=== PATIENT | female | born 1935 | race Caucasian/White ===

== ENCOUNTER 2016-11-11 07:54 | Inpatient (IN) | payer MEDICARE, BC ==
[~2016-11-11 07:54] MED LIST: Bisacodyl 5 MG Tab PO PRN; Lactated Ringers 1,000 ML IV SCH; Lidocaine 1%/Sod Bicarbonate in NS 8.4% 1 ML Syringe IV PRN; Magnesium Hydroxide 400 MG/5 ML Susp 30 ML Cup PO PRN; Morphine 2 MG/ML Syringe IVPUSH PRN; Morphine PF 10 MG/10 ML SDV ONE; Ondansetron 4 MG/2 ML SDV IVPUSH PRN; Propofol 200 MG/20 ML SDV ONE; Sodium Chloride 0.9% 10 ML Syringe FLUSH PRN; fentaNYL 100 MCG/2 ML SDV ONE
[2016-11-11] MEDS ORDERED: ceFAZolin 1 GM Vial ONE (08:10)
--- NOTE | 2016-11-11 08:54 | PCM.CONS ---
H&P History of Present Illness - General Date of Service: 11/11/16 Admit Problem/Dx: Admission Diagnosis/Problem Admission Diagnosis/Problem Osteoarthritis of knee Source of Information: Patient, Family, Old records, Provider, RN notes reviewed History Limitations: Reports: Physical impairment - History of Present Illness Initial Comments - Free Text/Narative: This is an 81-year-old, white female, with past medical history of Hypertension , HLD, OA, Osteoporosis, and Chronic Knee Pain who underwent left total knee arthroplasty post operative day zero. Patient appears relatively well. Her pain is controlled. She denies any acute issues. Hospital Medicine was consulted for postoperative care. Left Knee Pain Score (Numeric/FACES): 0 - Related Data Allergies/Adverse Reactions: Allergies Allergy/AdvReac Type Severity Reaction Status Date / Time No Known Allergies Allergy Verified 11/08/16 12:13 Home Medications: Home Meds Calcium Carbonate [Calcium] 1,500 mg PO DAILY 11/08/16 [History] Cholecalciferol (Vitamin D3) [Vitamin D3] 1,000 unit PO DAILY 11/08/16 [History] Past Medical History HEENT History: Reports: Impaired vision, Other (see below) Other HEENT History: excessive cerumen, glasses, dentures Cardiovascular History: Reports: Heart murmur, High cholesterol Respiratory History: Reports: None Gastrointestinal History: Reports: Hiatal hernia, Other (see below) Other Gastrointestinal History: abdominal pain Genitourinary History: Reports: Other (see below) Other Genitourinary History: UTI 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 Musculoskeletal History: Reports: Other (see below) Other Musculoskeletal History: L knee pain, L knee OA, mild scoliosis Neurological History: Reports: Other (see below) Other Neuro History: dizziness Psychiatric History: Reports: None Endocrine/Metabolic History: Reports: None Hematologic History: Reports: None Immunologic History: Reports: None Oncologic (Cancer) History: Reports: None Dermatologic History: Reports: None - Past Surgical History GI Surgical History: Reports: Cholecystectomy, Colonoscopy Female Surgical History: Reports: Hysterectomy Musculoskeletal Surgical History: Reports: Hip replacement Social & Family History - Tobacco Use Smoking Status *Q: Never Smoker Second Hand Smoke Exposure: No - Alcohol Use Days Per Week of Alcohol Use: 0 - Recreational Drug Use Recreational Drug Use: No H&P Review of Systems - Review of Systems: Review Of Systems: See Below General: Denies: fever, chills, malaise, weakness, fatigue HEENT: Reports: no symptoms Pulmonary: Denies: Shortness of Breath Cardiovascular: Denies: chest pain, dyspnea on exertion, edema Gastrointestinal: Denies: Abdominal pain, Decreased appetite, Nausea, Vomiting Genitourinary: Reports: no symptoms Musculoskeletal: Reports: no symptoms Skin: Denies: cyanosis, erythema Psychiatric: Denies: depression, anxiety, agitation, hallucinations, suicidal ideation Neurological: Reports: Difficulty Walking, Gait Disturbance. Denies: Confusion , Weakness Hematologic/Lymphatic: Reports: no symptoms Immunologic: Reports: no symptoms Exam - Exam Exam: See Below - Vital Signs Weight: 83.007 kg - Exam Quality Assessment: supplemental oxygen General: alert, oriented, cooperative. No: mild distress HEENT: Conjunctiva clear, EACs clear, EOMI, Hearing intact, Mucosa moist & pink , Nares patent, Normal nasal septum, Posterior pharynx clear, Pupils equal, Pupils reactive Neck: supple, trachea midline, 2+ carotid pulse wo bruit, full range of motion Lungs: Clear to auscultation, Normal respiratory effort Cardiovascular: regular rate, regular rhythm Abdomen: normal bowel sounds, soft. No: organomegaly (Female) Exam: Other (indwelling frias catheter) Rectal (Female) Exam: Deferred Back Exam: normal inspection, decreased range of motion Extremities: normal inspection, normal pulses. No: clubbing, cyanosis, calf tenderness, edema Peripheral Pulses: 2+: dorsalis pedis (L), dorsalis pedis (R) Skin: warm, dry, intact Neuro Extensive - Mental Status: oriented x3, normal cognition, memory intact Neuro Extensive - Motor, Sensory, Reflexes: CN II-XII intact (limited but fairly intact), abnormal gait Psychiatric: alert, normal affect, normal mood Consult PN Assessment/Plan POD#: 0 Procedures: Procedures ASSAY OF PREALBUMIN (11/01/16) ASSAY THYROID STIM HORMONE (04/02/16) BLOOD CULTURE FOR BACTERIA (09/11/14) C-REACTIVE PROTEIN (01/29/16) CHEST X-RAY 2VW FRONTAL&LATL (11/01/16) COMP SCREEN MAMMOGRAM ADD-ON (04/17/16) COMPLETE CBC AUTOMATED (11/01/16) COMPLETE CBC W/AUTO DIFF WBC (01/29/16) COMPREHEN METABOLIC PANEL (11/01/16) DXA BONE DENSITY AXIAL (04/14/15) EMERGENCY DEPT VISIT (09/11/14) EXTRACRANIAL BILAT STUDY (04/17/16) HYDRATE IV INFUSION ADD-ON (09/11/14) LIPID PANEL (04/02/16) MICROBE SUSCEPTIBLE ILDA (01/29/16) OFFICE/OUTPATIENT VISIT EST (04/02/16) PROTHROMBIN TIME (11/01/16) REMOVE IMPACTED EAR WAX UNI (01/29/16) ROUTINE VENIPUNCTURE (11/01/16) THER/PROPH/DIAG INJ SC/IM (04/02/16) THER/PROPH/DIAG IV INF INIT (09/11/14) THROMBOPLASTIN TIME PARTIAL (11/01/16) TX/PRO/DX INJ NEW DRUG ADDON (09/11/14) URINALYSIS AUTO W/SCOPE (11/01/16) URINE BACTERIA CULTURE (01/29/16) URINE CULTURE/COLONY COUNT (01/29/16) VITAMIN D 25 HYDROXY (11/01/16) X-RAY EXAM OF KNEE 3 (10/02/16) Problem List Initiated/Reviewed/Updated: Yes Plan: Assessment: Acute: Post-Operative Care State - Stable - Continue to monitor for hemodynamic instability S/p Left Total Knee Arthroplasty - Stable - DVT and Pain Management as per primary team Hx/o Chronic B/L Knee Pain - Pain Management as per primary team Post Operative Bradycardia - HR in the 52-57 - Continue to monitor Chronic: HTN HLD OA Osteoporosis Plan: She is clinically stable Routine AM labs Continue home meds IS q2 awake Thank you for the opportunity to participate in the management of this patient. Requesting Provider: Dr. Levy Date Consult Requested: 11/11/16 Reason for Consult: Post-Operative Care Patient History Reviewed: Yes Admission H&P Reviewed: Yes Consult Result/Summary: Stable
--- NOTE | 2016-11-11 09:16 | PCM.PREANE ---
Preanesthetic Assessment - Anesthesia/Transfusion/Family Hx Anesthesia History: Prior Anesthesia Without Reaction Family History of Anesthesia Reaction: No Transfusion History: No Prior Transfusion(s) - Review of Systems General: No Symptoms Pulmonary: No Symptoms Cardiovascular: No Symptoms Gastrointestinal: No symptoms Neurological: No Symptoms Other: Reports: Easy Bruising - Physical Assessment NPO Status Date: 11/10/16 NPO Status Time: 19:30 O2 Sat by Pulse Oximetry: 96 Respiratory Rate: 16 Vital Signs: Last Vital Signs Temp 97.7 F 11/11/16 08:05 Pulse 68 11/11/16 08:05 Resp 16 11/11/16 08:05 BP 128/73 11/11/16 08:05 Pulse Ox 96 11/11/16 08:05 Height: 5 ft 2 in Weight: 83.007 kg ASA Class: 2 Mental Status: Alert & Oriented x3 Airway Class: Mallampati = 1 Dentition: Reports: Edentulous Thyro-Mental Finger Breadths: 3 Mouth Opening Finger Breadths: 3 ROM/Head Extension: Full Lungs: Clear to auscultation, Normal respiratory effort Cardiovascular: Regular Rate, Regular Rhythm, No Murmurs - Lab Values: Laboratory Last Values MRSA (PCR) Negative 10/25/16 14:59 - Imaging/EKG Impressions: 11/04/16 Echo 65-70% EF 11/01/16 EKG SR 68 - Allergies Allergies/Adverse Reactions: Allergies Allergy/AdvReac Type Severity Reaction Status Date / Time No Known Allergies Allergy Verified 11/08/16 12:13 - Blood Blood Available: No - Acknowledgements Anesthesia Type Planned: Spinal Pt an Appropriate Candidate for the Planned Anesthesia: Yes Alternatives and Risks of Anesthesia Discussed w Pt/Guardian: Yes Pt/Guardian Understands and Agrees with Anesthesia Plan: Yes PreAnesthesia Questionnaire HEENT History: Reports: Impaired vision, Other (see below) Other HEENT History: excessive cerumen, glasses, dentures Cardiovascular History: Reports: Heart murmur, High cholesterol Respiratory History: Reports: None Gastrointestinal History: Reports: Hiatal hernia, Other (see below) Other Gastrointestinal History: abdominal pain Genitourinary History: Reports: Other (see below) Other Genitourinary History: UTI [employer]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 Musculoskeletal History: Reports: Other (see below) Other Musculoskeletal History: L knee pain, L knee OA, mild scoliosis Neurological History: Reports: Other (see below) Other Neuro History: dizziness Psychiatric History: Reports: None Endocrine/Metabolic History: Reports: None Hematologic History: Reports: None Immunologic History: Reports: None Oncologic (Cancer) History: Reports: None Dermatologic History: Reports: None - Past Surgical History GI Surgical History: Reports: Cholecystectomy, Colonoscopy Female Surgical History: Reports: Hysterectomy Musculoskeletal Surgical History: Reports: Hip replacement - SUBSTANCE USE Smoking Status *Q: Never Smoker Tobacco Use Within Last Twelve Months: No Second Hand Smoke Exposure: No Days Per Week of Alcohol Use: 0 (seldom) Recreational Drug Use History: No - HOME MEDS Home Medications: Home Meds Calcium Carbonate [Calcium] 1,500 mg PO DAILY 11/08/16 [History] Cholecalciferol (Vitamin D3) [Vitamin D3] 1,000 unit PO DAILY 11/08/16 [History] - CURRENT (IN HOUSE) MEDS Current Meds: Current Medications Aspirin (Ecotrin) 325 mg PO BID [facility] Bisacodyl (Dulcolax) 5 mg PO DAILY PRN PRN Reason: Constipation Morphine Sulfate 8 mg/Epinephrine HCl 0.3 mg/Cefuroxime Sodium 750 mg/Ketorolac Tromethamine 30 mg/Sodium Chloride 27.9 ml 0 mg .XX ONETIME ONE Stop: 11/11/16 10:01 Docusate Sodium (Colace) 100 mg PO BID [facility] Famotidine (Pepcid) 20 mg PO Q12H [facility] Lactated Ringer's (Ringers, Lactated) 1,000 mls @ 125 mls/hr IV ASDIRECTED [facility] Last Admin: 11/11/16 08:25 Dose: 125 mls/hr Cefazolin Sodium/Dextrose 2 gm (/ Premix) 50 mls @ 100 mls/hr IV Q8H [facility] Stop: 11/12/16 07:59 Lidocaine/Sodium Bicarbonate (Buffered Lidocaine 1% In Ns 8.4%) 0.25 ml IV ONETIME PRN PRN Reason: Prior to IV Start Stop: 11/11/16 16:00 Last Admin: 11/11/16 08:24 Dose: 0.25 ml Magnesium Hydroxide (Milk Of Magnesia) 30 ml PO BID PRN PRN Reason: Constipation Morphine Sulfate (Morphine) 2 mg IVPUSH Q2H PRN PRN Reason: Breakthrough Pain Multivitamins (Thera) 1 each PO WITHBREAKFAST [facility] Naloxone HCl (Narcan) 0.1 mg IVPUSH Q5M PRN PRN Reason: Oversedation Stop: 11/11/16 12:16 Ondansetron HCl (Zofran) 4 mg IVPUSH Q6H PRN PRN Reason: Nausea/Vomiting Oxycodone/Acetaminophen (Percocet 325-5 Mg) 1 - 2 tab PO Q4H PRN PRN Reason: Pain Senna (Senna) 8.6 mg PO BID PRN PRN Reason: Constipation Sodium Chloride (Saline Flush) 10 ml FLUSH ASDIRECTED PRN PRN Reason: Keep Vein Open Discontinued Medications Bupivacaine HCl (Marcaine 0.25%) Confirm Administered Dose 30 ml .ROUTE .STK- MED ONE Stop: 11/11/16 08:11 Cefazolin Sodium (Ancef) Confirm Administered Dose 2 gm .ROUTE .STK-MED ONE Stop: 11/11/16 07:13 Cefazolin Sodium (Ancef) Confirm Administered Dose 2 gm .ROUTE .STK-MED ONE Stop: 11/11/16 08:11 Fentanyl (Sublimaze) Confirm Administered Dose 100 mcg .ROUTE .STK-MED ONE Stop: 11/11/16 07:13 Lidocaine HCl (Xylocaine-Mpf 1%) Confirm Administered Dose 10 mls @ as directed .ROUTE .STK-MED ONE Stop: 11/11/16 07:13 Iodine (Iodine 2% Mild Tincture) Confirm Administered Dose 30 ml .ROUTE .STK- MED ONE Stop: 11/11/16 08:11 Morphine Sulfate (Duramorph Pf) Confirm Administered Dose 10 mg .ROUTE .STK-MED ONE Stop: 11/11/16 07:14 Propofol (Diprivan 20 Ml) Confirm Administered Dose 400 mg .ROUTE .STK-MED ONE Stop: 11/11/16 07:13 Tranexamic Acid (Cyklokapron) Confirm Administered Dose 1,000 mg .ROUTE .STK- MED ONE Stop: 11/11/16 08:11
[2016-11-11] MEDS ORDERED: Phenylephrine/Normal Saline 100 MCG/ML 10 ML Syringe ONE (09:58)
[2016-11-11] MEDS ORDERED: diphenhydrAMINE 50 MG/ML SDV IVPUSH PRN (10:00)
[2016-11-11] MEDS ORDERED: Ondansetron 4 MG/2 ML SDV IVPUSH PRN (10:00)
[2016-11-11] MEDS ORDERED: Phenylephrine 1 MG in Sodium Chloride 0.9% 10 ML IV SCH (10:00)
[2016-11-11] MEDS: Bupivacaine 0.25% 30 ML SDV ONE ×2 (10:21→11:06)
[2016-11-11] MEDS: ceFAZolin 1 GM Vial ONE ×2 (10:21→11:03)
[2016-11-11] MEDS: Iodine/Sodium Iodide 2% Tincture 30 ML Bottle ONE ×2 (10:22→11:00)
[2016-11-11] MEDS: Morphine 8 MG, EPINEPHrine 0.3 MG, Cefuroxime 750 MG, Ketorolac 30 MG, Sodium Chloride ... ONE ×10 (10:23→11:05)
[2016-11-11] MEDS ORDERED: fentaNYL 100 MCG/2 ML SDV IVPUSH PRN (11:00)
[2016-11-11] MEDS ORDERED: HYDROmorphone 0.5 MG/0.5 ML Syringe IVPUSH PRN (11:00)
[2016-11-11] MEDS ORDERED: Propofol 200 MG/20 ML SDV ONE (11:05)
[2016-11-11] MEDS ORDERED: ePHEDrine/Normal Saline 25 MG/5 ML Syringe ONE (11:22)
[2016-11-11] MEDS ORDERED: Lactated Ringers 1,000 ML ONE (11:31)
--- NOTE | 2016-11-11 11:55 | PCM.POSTAN ---
POST ANESTHESIA ASSESSMENT - MENTAL STATUS Mental Status: alert - VITAL SIGNS Pulse Rate: 76 SaO2: 97 Resp Rate: 11 Blood Pressure: 102/50 Temperature: 36.2 C - RESPIRATORY Respiratory Status: respiratory rate WNL, airway patent, O2 saturation stable, supplemental oxygen - CARDIOVASCULAR CV Status: pulse rate WNL, blood pressure stable - GASTROINTESTINAL GI Status: no symptoms - POST OP HYDRATION Hydration Status: adequate & stable
[2016-11-11] MEDS ORDERED: Naloxone 0.4 MG/ML SDV IVPUSH PRN (12:00)
--- NOTE | 2016-11-11 13:06 | CR ---
Left knee: AP and lateral views of the left knee were obtained. Comparison: Previous left knee study of 10/02/16. Knee prosthesis is seen. Components are aligned. No surrounding bony abnormality is seen. Soft tissue air noted from the surgical procedure. Impression: 1. Satisfactory postoperative radiographic appearance of recently placed left knee prosthesis. Diagnostic code #2
[2016-11-11] MEDS: ceFAZolin 2 GM in Premix Bag 1 BAG IV SCH (14:40)
[2016-11-11] MEDS: Acetaminophen/oxyCODONE 325-5 MG Tab PO PRN ×2 (14:50→19:59)
[2016-11-11] MEDS: Docusate Sodium 100 MG Cap PO SCH (19:59)
[2016-11-11] MEDS: Famotidine 20 MG Tab PO SCH (19:59)
[2016-11-11] MEDS ORDERED: Sennosides 8.6 MG Tab PO PRN (21:00)
[2016-11-12] MEDS: ceFAZolin 2 GM in Premix Bag 1 BAG IV SCH ×2 (00:11→06:30)
[2016-11-12] MEDS: Acetaminophen/oxyCODONE 325-5 MG Tab PO PRN ×4 (01:21→15:22)
[2016-11-12] MEDS ORDERED: Multivitamins,Therapeutic Tab PO SCH (07:00)
[2016-11-12] MEDS: Famotidine 20 MG Tab PO SCH (08:04)
[2016-11-12] MEDS: Docusate Sodium 100 MG Cap PO SCH (08:04)
--- NOTE | 2016-11-12 08:13 | PCM48HPAN ---
Post Anesthesia Note - EVALUATION WITHIN 48HRS OF ANESTHETIC Vital Signs in Normal Range: Yes Patient Participated in Evaluation: Yes (pt in shower, stated she is doing ok) Respiratory Function Stable: Yes Airway Patent: Yes Cardiovascular Function Stable: Yes Hydration Status Stable: Yes Pain Control Satisfactory: Yes Nausea and Vomiting Control Satisfactory: Yes Mental Status Recovered: Yes
--- NOTE | 2016-11-12 08:58 | PCM.CONSN ---
- General Info Date of Service: 11/12/16 Admission Dx/Problem (Free Text): Admission Diagnosis/Problem Admission Diagnosis/Problem Osteoarthritis of knee POD #1 S/P Lt TKA with Dr. Levy Patient is doing well thus far VSS; postop bradycardia resolved rates in the 70's overnight Hgb 9.3 Functional Status: Reports: pain controlled, tolerating diet, ambulating, urinating. Denies: new symptoms - Review of Systems General: Reports: No Symptoms HEENT: Reports: no symptoms Pulmonary: Reports: no symptoms Cardiovascular: Reports: No Symptoms Gastrointestinal: Reports: No symptoms Genitourinary: Reports: no symptoms Musculoskeletal: Reports: leg pain Skin: Reports: no symptoms Neurological: Reports: No Symptoms Psychiatric: Reports: no symptoms - Patient Data Vitals - most recent: Last Vital Signs Temp 98.2 F 11/12/16 07:44 Pulse 71 11/12/16 07:44 Resp 14 11/12/16 07:44 BP 116/86 11/12/16 07:44 Pulse Ox 85 L 11/12/16 08:40 Weight - most recent: 191 lb 14.4 oz I&O - last 24 hours: Intake & Output 11/11/16 11/12/16 11/12/16 22:59 06:59 14:59 Intake Total 1420 250 Output Total 135 200 Balance 1285 50 Lab Results last 24 hrs: Laboratory Results - last 24 hr 11/12/16 11/12/16 Range/Units 06:10 06:10 WBC 5.04 (3.98-10.04) K/mm3 RBC 3.57 L (3.98-5.22) M/mm3 Hgb 9.3 L (11.2-15.7) gm/L Hct 30.9 L (34.1-44.9) % MCV 86.6 (79.4-94.8) fl MCH 26.1 (25.6-32.2) pg MCHC 30.1 L (32.2-35.5) g/dl RDW Std Deviation 60.3 H (36.4-46.3) fL Plt Count 242 (182-369) K/mm3 MPV 9.9 (9.4-12.3) fl Neut % (Auto) 67.0 (34.0-71.1) % Lymph % (Auto) 14.9 L (19.3-51.7) % Garrard % (Auto) 15.5 H (4.7-12.5) % Eos % (Auto) 2.0 (0.7-5.8) Baso % (Auto) 0.4 (0.1-1.2) % Neut # (Auto) 3.38 (1.56-6.13) K/mm3 Lymph # (Auto) 0.75 L (1.18-3.74) K/mm3 Garrard # (Auto) 0.78 H (0.24-0.36) K/mm3 Eos # (Auto) 0.10 (0.04-0.36) K/mm3 Baso # (Auto) 0.02 (0.01-0.08) K/mm3 Manual Slide Review Normal smear Sodium 141 (136-145) mEq/L Potassium 4.1 (3.5-5.1) mEq/L Chloride 108 H (98-107) mEq/L Carbon Dioxide 29 (21-32) mEq/L Anion Gap 8.1 (5-15) BUN 15 (7-18) mg/dL Creatinine 0.9 (0.55-1.02) mg/dL Est Cr Clr Drug Dosing 38.77 mL/min Estimated GFR (MDRD) > 60 (>60) mL/min BUN/Creatinine Ratio 16.7 (14-18) Glucose 113 (83-115) mg/dL Calcium 7.6 L (8.5-10.1) mg/dL Total Bilirubin 0.6 (0.2-1.0) mg/dL AST 62 H (15-37) U/L ALT 49 (14-59) U/L Alkaline Phosphatase 73 (46-116) U/L Total Protein 5.4 L (6.4-8.2) g/dl Albumin 2.6 L (3.4-5.0) g/dl Globulin 2.8 gm/dL Albumin/Globulin Ratio 0.9 L (1-2) Med Orders - Current: Current Medications Aspirin (Ecotrin) 325 mg PO BID [facility] Last Admin: 11/12/16 08:04 Dose: 325 mg Bisacodyl (Dulcolax) 5 mg PO DAILY PRN PRN Reason: Constipation Calcium Carbonate/Glycine (Tums) 1,500 mg PO DAILY [facility] Last Admin: 11/12/16 08:03 Dose: 1,500 mg Cholecalciferol (Vitamin D3) 1,000 units PO DAILY [facility] Last Admin: 11/12/16 08:04 Dose: 1,000 units Docusate Sodium (Colace) 100 mg PO BID [facility] Last Admin: 11/12/16 08:04 Dose: 100 mg Famotidine (Pepcid) 20 mg PO Q12H [facility] Last Admin: 11/12/16 08:04 Dose: 20 mg Magnesium Hydroxide (Milk Of Magnesia) 30 ml PO BID PRN PRN Reason: Constipation Morphine Sulfate (Morphine) 2 mg IVPUSH Q2H PRN PRN Reason: Breakthrough Pain Multivitamins (Thera) 1 each PO WITHBREAKFAST [facility] Last Admin: 11/12/16 06:28 Dose: 1 each Ondansetron HCl (Zofran) 4 mg IVPUSH Q6H PRN PRN Reason: Nausea/Vomiting Oxycodone/Acetaminophen (Percocet 325-5 Mg) 1 - 2 tab PO Q4H PRN PRN Reason: Pain Last Admin: 11/12/16 06:27 Dose: 2 tab Senna (Senna) 8.6 mg PO BID PRN PRN Reason: Constipation Discontinued Medications Bupivacaine HCl (Marcaine 0.25%) Confirm Administered Dose 30 ml .ROUTE .STK- MED ONE Stop: 11/11/16 08:11 Last Admin: 11/11/16 11:06 Dose: 30 ml Cefazolin Sodium (Ancef) Confirm Administered Dose 2 gm .ROUTE .STK-MED ONE Stop: 11/11/16 07:13 Last Admin: 11/11/16 11:03 Dose: 2 gm Cefazolin Sodium (Ancef) Confirm Administered Dose 2 gm .ROUTE .STK-MED ONE Stop: 11/11/16 08:11 Morphine Sulfate 8 mg/Epinephrine HCl 0.3 mg/Cefuroxime Sodium 750 mg/Ketorolac Tromethamine 30 mg/Sodium Chloride 27.9 ml 0 mg .XX ONETIME ONE Stop: 11/11/16 10:01 Last Admin: 11/11/16 11:05 Dose: 788.3 mg Diphenhydramine HCl (Benadryl) 25 mg IVPUSH Q6H PRN PRN Reason: pruritis Stop: 11/11/16 23:59 Ephedrine Sulfate (Ephedrine In Ns) Confirm Administered Dose 25 mg .ROUTE .STK- MED ONE Stop: 11/11/16 11:23 Fentanyl (Sublimaze) Confirm Administered Dose 100 mcg .ROUTE .STK-MED ONE Stop: 11/11/16 07:13 Fentanyl (Sublimaze) 50 mcg IVPUSH Q5M PRN PRN Reason: Pain Stop: 11/11/16 11:16 Hydromorphone HCl (Dilaudid) 0.5 mg IVPUSH Q15M PRN PRN Reason: severe pain Stop: 11/11/16 11:16 Lactated Ringer's (Ringers, Lactated) 1,000 mls @ 125 mls/hr IV ASDIRECTED [facility] Stop: 11/11/16 23:59 Last Admin: 11/11/16 08:25 Dose: 125 mls/hr Cefazolin Sodium/Dextrose 2 gm (/ Premix) 50 mls @ 100 mls/hr IV Q8H [facility] Stop: 11/12/16 07:59 Last Admin: 11/12/16 06:30 Dose: 100 mls/hr Lidocaine HCl (Xylocaine-Mpf 1%) Confirm Administered Dose 10 mls @ as directed .ROUTE .STK-MED ONE Stop: 11/11/16 07:13 Phenylephrine HCl 1 mg/ Sodium (Chloride) 10.1 mls @ 1 mls/sec IV TITRATE [facility] Stop: 11/11/16 23:59 Lactated Ringer's (Ringers, Lactated) Confirm Administered Dose 1,000 mls @ as directed .ROUTE .STK-MED ONE Stop: 11/11/16 11:32 Iodine (Iodine 2% Mild Tincture) Confirm Administered Dose 30 ml .ROUTE .STK- MED ONE Stop: 11/11/16 08:11 Last Admin: 11/11/16 11:00 Dose: 18 ml Lidocaine/Sodium Bicarbonate (Buffered Lidocaine 1% In Ns 8.4%) 0.25 ml IV ONETIME PRN PRN Reason: Prior to IV Start Stop: 11/11/16 16:00 Last Admin: 11/11/16 08:24 Dose: 0.25 ml Morphine Sulfate (Duramorph Pf) Confirm Administered Dose 10 mg .ROUTE .STK-MED ONE Stop: 11/11/16 07:14 Naloxone HCl (Narcan) 0.1 mg IVPUSH Q5M PRN PRN Reason: Oversedation Stop: 11/11/16 12:16 Ondansetron HCl (Zofran) 4 mg IVPUSH ONETIME PRN PRN Reason: Nausea/Vomiting Stop: 11/11/16 23:59 Phenylephrine HCl (Phenylephrine In Ns 100 Mcg/Ml) Confirm Administered Dose 1 mg .ROUTE .STK-MED ONE Stop: 11/11/16 09:59 Propofol (Diprivan 20 Ml) Confirm Administered Dose 400 mg .ROUTE .STK-MED ONE Stop: 11/11/16 07:13 Propofol (Diprivan 20 Ml) Confirm Administered Dose 200 mg .ROUTE .STK-MED ONE Stop: 11/11/16 11:06 Sodium Chloride (Saline Flush) 10 ml FLUSH ASDIRECTED PRN PRN Reason: Keep Vein Open Stop: 11/11/16 23:59 Tranexamic Acid (Cyklokapron) Confirm Administered Dose 1,000 mg .ROUTE .STK- MED ONE Stop: 11/11/16 08:11 Last Admin: 11/11/16 11:07 Dose: 1,000 mg - Exam Quality Assessment: DVT prophylaxis General: alert, oriented, cooperative, no acute distress HEENT: Pupils equal, Pupils reactive, EOMI, Mucous membr. moist/pink Neck: supple Lungs: Clear to auscultation, Normal respiratory effort Cardiovascular: Regular Rate, Regular Rhythm, Murmurs (grade 2 systolic) Abdomen: bowel sounds present, soft, no tenderness, no distension (Female) Exam: Deferred Extremities: no calf tenderness, other (teds/ scd's bilat) Peripheral Pulses: 1+: dorsalis pedis (L), dorsalis pedis (R) Skin: warm, dry Neurological: no new focal deficit Psy/Mental Status: alert, normal affect, normal mood Consult PN Assessment/Plan POD#: 1 Procedures: Procedures ASSAY OF PREALBUMIN (11/01/16) ASSAY THYROID STIM HORMONE (04/02/16) BLOOD CULTURE FOR BACTERIA (09/11/14) C-REACTIVE PROTEIN (01/29/16) CHEST X-RAY 2VW FRONTAL&LATL (11/01/16) COMP SCREEN MAMMOGRAM ADD-ON (04/17/16) COMPLETE CBC AUTOMATED (11/01/16) COMPLETE CBC W/AUTO DIFF WBC (01/29/16) COMPREHEN METABOLIC PANEL (11/01/16) DXA BONE DENSITY AXIAL (04/14/15) EMERGENCY DEPT VISIT (09/11/14) EXTRACRANIAL BILAT STUDY (04/17/16) HYDRATE IV INFUSION ADD-ON (09/11/14) LIPID PANEL (04/02/16) MICROBE SUSCEPTIBLE ILDA (01/29/16) OFFICE/OUTPATIENT VISIT EST (04/02/16) PROTHROMBIN TIME (11/01/16) REMOVE IMPACTED EAR WAX UNI (01/29/16) ROUTINE VENIPUNCTURE (11/01/16) THER/PROPH/DIAG INJ SC/IM (04/02/16) THER/PROPH/DIAG IV INF INIT (09/11/14) THROMBOPLASTIN TIME PARTIAL (11/01/16) TX/PRO/DX INJ NEW DRUG ADDON (09/11/14) URINALYSIS AUTO W/SCOPE (11/01/16) URINE BACTERIA CULTURE (01/29/16) URINE CULTURE/COLONY COUNT (01/29/16) VITAMIN D 25 HYDROXY (11/01/16) X-RAY EXAM OF KNEE 3 (10/02/16) (1) S/P total knee arthroplasty SNOMED Code(s): 0222499747195, 632669492, 9765274947562 Code(s): Z96.659 - PRESENCE OF UNSPECIFIED ARTIFICIAL KNEE JOINT Priority: High Current Visit: Yes Qualifiers: Laterality: left Qualified Code(s): Z96.652 - Presence of left artificial knee joint (2) Osteoarthritis SNOMED Code(s): 826098417 Code(s): M19.90 - UNSPECIFIED OSTEOARTHRITIS, UNSPECIFIED SITE Priority: High Current Visit: Yes Qualifiers: Osteoarthritis location: knee Osteoarthritis type: primary Laterality: left Qualified Code(s): M17.12 - Unilateral primary osteoarthritis, left knee (3) HTN (hypertension) SNOMED Code(s): 36707657 Code(s): I10 - ESSENTIAL (PRIMARY) HYPERTENSION Priority: Medium Current Visit: No Qualifiers: Hypertension type: essential hypertension Qualified Code(s): I10 - Essential (primary) hypertension (4) HLD (hyperlipidemia) SNOMED Code(s): 53082683 Code(s): E78.5 - HYPERLIPIDEMIA, UNSPECIFIED Priority: Medium Current Visit: No Qualifiers: Hyperlipidemia type: unspecified Qualified Code(s): E78.5 - Hyperlipidemia , unspecified (5) CKD (chronic kidney disease) SNOMED Code(s): 709041168 Code(s): N18.9 - CHRONIC KIDNEY DISEASE, UNSPECIFIED Priority: Medium Current Visit: No (6) Osteoporosis SNOMED Code(s): 57098950 Code(s): M81.0 - AGE-RELATED OSTEOPOROSIS W/O CURRENT PATHOLOGICAL FRACTURE Priority: Medium Current Visit: No Problem List Initiated/Reviewed/Updated: Yes Plan: I/P: S/P Lt TKA with Dr. Levy, POD #1 -DVT and pain management per Ortho/primary team -PT/OT -IS/RT -VSS -Hgb 9.3, preop 11.8 Postoperative bradycardia- resolved Chronic conditions: stable, cont usual home meds HTN HLD CKD Osteoporosis Heart murmur; preop echocardiogram with normal EF, no valvular concerns. Other: GI prophylax CM/SW for assistance with DC planning Plans discharge home today; stable for discharge from Hospitalist standpoint today. Patient is Full Code status.
[2016-11-12] MEDS ORDERED: Calcium Carbonate 500 MG Tab.Chew PO SCH (09:00)
[2016-11-12] MEDS ORDERED: Aspirin 325 MG Tab.EC PO SCH (09:00)
[2016-11-12] MEDS ORDERED: Cholecalciferol (Vitamin D3) 1,000 Unit Tab PO SCH (09:00)
[2016-11-12 11:42] VITALS: BP 110/54
--- NOTE | 2016-11-12 17:10 | PCM.SURGPN ---
- General Info Date of Service: 11/12/16 POD#: 1 Functional Status: Reports: pain controlled, tolerating diet, ambulating, urinating, other (The pt states she slept well last night.). Denies: new symptoms - Patient Data Vitals - most recent: Last Vital Signs Temp 97.2 F 11/12/16 11:39 Pulse 70 11/12/16 11:39 Resp 14 11/12/16 11:39 BP 110/54 L 11/12/16 11:39 Pulse Ox 95 11/12/16 11:39 Weight - most recent: 191 lb 14.4 oz I&O - last 24 hours: Intake & Output 11/12/16 11/12/16 11/12/16 06:59 14:59 22:59 Intake Total 250 120 Output Total 200 Balance 50 120 Lab Results last 24 hrs: Laboratory Results - last 24 hr 11/12/16 11/12/16 Range/Units 06:10 06:10 WBC 5.04 (3.98-10.04) K/mm3 RBC 3.57 L (3.98-5.22) M/mm3 Hgb 9.3 L (11.2-15.7) gm/L Hct 30.9 L (34.1-44.9) % MCV 86.6 (79.4-94.8) fl MCH 26.1 (25.6-32.2) pg MCHC 30.1 L (32.2-35.5) g/dl RDW Std Deviation 60.3 H (36.4-46.3) fL Plt Count 242 (182-369) K/mm3 MPV 9.9 (9.4-12.3) fl Neut % (Auto) 67.0 (34.0-71.1) % Lymph % (Auto) 14.9 L (19.3-51.7) % [place] % (Auto) 15.5 H (4.7-12.5) % Eos % (Auto) 2.0 (0.7-5.8) Baso % (Auto) 0.4 (0.1-1.2) % Neut # (Auto) 3.38 (1.56-6.13) K/mm3 Lymph # (Auto) 0.75 L (1.18-3.74) K/mm3 [place] # (Auto) 0.78 H (0.24-0.36) K/mm3 Eos # (Auto) 0.10 (0.04-0.36) K/mm3 Baso # (Auto) 0.02 (0.01-0.08) K/mm3 Manual Slide Review Normal smear Sodium 141 (136-145) mEq/L Potassium 4.1 (3.5-5.1) mEq/L Chloride 108 H (98-107) mEq/L Carbon Dioxide 29 (21-32) mEq/L Anion Gap 8.1 (5-15) BUN 15 (7-18) mg/dL Creatinine 0.9 (0.55-1.02) mg/dL Est Cr Clr Drug Dosing 38.77 mL/min Estimated GFR (MDRD) > 60 (>60) mL/min BUN/Creatinine Ratio 16.7 (14-18) Glucose 113 (83-115) mg/dL Calcium 7.6 L (8.5-10.1) mg/dL Total Bilirubin 0.6 (0.2-1.0) mg/dL AST 62 H (15-37) U/L ALT 49 (14-59) U/L Alkaline Phosphatase 73 (46-116) U/L Total Protein 5.4 L (6.4-8.2) g/dl Albumin 2.6 L (3.4-5.0) g/dl Globulin 2.8 gm/dL Albumin/Globulin Ratio 0.9 L (1-2) Med Orders - Current: Current Medications Aspirin (Ecotrin) 325 mg PO BID [facility] Last Admin: 11/12/16 08:04 Dose: 325 mg Bisacodyl (Dulcolax) 5 mg PO DAILY PRN PRN Reason: Constipation Calcium Carbonate/Glycine (Tums) 1,500 mg PO DAILY [facility] Last Admin: 11/12/16 08:03 Dose: 1,500 mg Cholecalciferol (Vitamin D3) 1,000 units PO DAILY [facility] Last Admin: 11/12/16 08:04 Dose: 1,000 units Docusate Sodium (Colace) 100 mg PO BID [facility] Last Admin: 11/12/16 08:04 Dose: 100 mg Famotidine (Pepcid) 20 mg PO Q12H [facility] Last Admin: 11/12/16 08:04 Dose: 20 mg Magnesium Hydroxide (Milk Of Magnesia) 30 ml PO BID PRN PRN Reason: Constipation Morphine Sulfate (Morphine) 2 mg IVPUSH Q2H PRN PRN Reason: Breakthrough Pain Multivitamins (Thera) 1 each PO WITHBREAKFAST [facility] Last Admin: 11/12/16 06:28 Dose: 1 each Ondansetron HCl (Zofran) 4 mg IVPUSH Q6H PRN PRN Reason: Nausea/Vomiting Last Admin: 11/12/16 12:35 Dose: 4 mg Oxycodone/Acetaminophen (Percocet 325-5 Mg) 1 - 2 tab PO Q4H PRN PRN Reason: Pain Last Admin: 11/12/16 15:22 Dose: 2 tab Senna (Senna) 8.6 mg PO BID PRN PRN Reason: Constipation Discontinued Medications Bupivacaine HCl (Marcaine 0.25%) Confirm Administered Dose 30 ml .ROUTE .STK- MED ONE Stop: 11/11/16 08:11 Last Admin: 11/11/16 11:06 Dose: 30 ml Cefazolin Sodium (Ancef) Confirm Administered Dose 2 gm .ROUTE .STK-MED ONE Stop: 11/11/16 07:13 Last Admin: 11/11/16 11:03 Dose: 2 gm Cefazolin Sodium (Ancef) Confirm Administered Dose 2 gm .ROUTE .STK-MED ONE Stop: 11/11/16 08:11 Morphine Sulfate 8 mg/Epinephrine HCl 0.3 mg/Cefuroxime Sodium 750 mg/Ketorolac Tromethamine 30 mg/Sodium Chloride 27.9 ml 0 mg .XX ONETIME ONE Stop: 11/11/16 10:01 Last Admin: 11/11/16 11:05 Dose: 788.3 mg Diphenhydramine HCl (Benadryl) 25 mg IVPUSH Q6H PRN PRN Reason: pruritis Stop: 11/11/16 23:59 Ephedrine Sulfate (Ephedrine In Ns) Confirm Administered Dose 25 mg .ROUTE .STK- MED ONE Stop: 11/11/16 11:23 Fentanyl (Sublimaze) Confirm Administered Dose 100 mcg .ROUTE .STK-MED ONE Stop: 11/11/16 07:13 Fentanyl (Sublimaze) 50 mcg IVPUSH Q5M PRN PRN Reason: Pain Stop: 11/11/16 11:16 Hydromorphone HCl (Dilaudid) 0.5 mg IVPUSH Q15M PRN PRN Reason: severe pain Stop: 11/11/16 11:16 Lactated Ringer's (Ringers, Lactated) 1,000 mls @ 125 mls/hr IV ASDIRECTED [facility] Stop: 11/11/16 23:59 Last Admin: 11/11/16 08:25 Dose: 125 mls/hr Cefazolin Sodium/Dextrose 2 gm (/ Premix) 50 mls @ 100 mls/hr IV Q8H [facility] Stop: 11/12/16 07:59 Last Admin: 11/12/16 06:30 Dose: 100 mls/hr Lidocaine HCl (Xylocaine-Mpf 1%) Confirm Administered Dose 10 mls @ as directed .ROUTE .STK-MED ONE Stop: 11/11/16 07:13 Phenylephrine HCl 1 mg/ Sodium (Chloride) 10.1 mls @ 1 mls/sec IV TITRATE [facility] Stop: 11/11/16 23:59 Lactated Ringer's (Ringers, Lactated) Confirm Administered Dose 1,000 mls @ as directed .ROUTE .STK-MED ONE Stop: 11/11/16 11:32 Iodine (Iodine 2% Mild Tincture) Confirm Administered Dose 30 ml .ROUTE .STK- MED ONE Stop: 11/11/16 08:11 Last Admin: 11/11/16 11:00 Dose: 18 ml Lidocaine/Sodium Bicarbonate (Buffered Lidocaine 1% In Ns 8.4%) 0.25 ml IV ONETIME PRN PRN Reason: Prior to IV Start Stop: 11/11/16 16:00 Last Admin: 11/11/16 08:24 Dose: 0.25 ml Morphine Sulfate (Duramorph Pf) Confirm Administered Dose 10 mg .ROUTE .STK-MED ONE Stop: 11/11/16 07:14 Naloxone HCl (Narcan) 0.1 mg IVPUSH Q5M PRN PRN Reason: Oversedation Stop: 11/11/16 12:16 Ondansetron HCl (Zofran) 4 mg IVPUSH ONETIME PRN PRN Reason: Nausea/Vomiting Stop: 11/11/16 23:59 Phenylephrine HCl (Phenylephrine In Ns 100 Mcg/Ml) Confirm Administered Dose 1 mg .ROUTE .STK-MED ONE Stop: 11/11/16 09:59 Propofol (Diprivan 20 Ml) Confirm Administered Dose 400 mg .ROUTE .STK-MED ONE Stop: 11/11/16 07:13 Propofol (Diprivan 20 Ml) Confirm Administered Dose 200 mg .ROUTE .STK-MED ONE Stop: 11/11/16 11:06 Sodium Chloride (Saline Flush) 10 ml FLUSH ASDIRECTED PRN PRN Reason: Keep Vein Open Stop: 11/11/16 23:59 Tranexamic Acid (Cyklokapron) Confirm Administered Dose 1,000 mg .ROUTE .[facility]- MED ONE Stop: 11/11/16 08:11 Last Admin: 11/11/16 11:07 Dose: 1,000 mg - Exam Wound/Incisions: dressing dry and intact General: alert, cooperative, no acute distress Lungs: Normal respiratory effort Extremities: normal pulses, no calf tenderness, other (NVS intact for BLE. Jailene's negative.) - Problem List Review Problem List Initiated/Reviewed/Updated: Yes - My Orders Last 24 Hours: Active Orders 24 hr Category Date Time Status Ready for Discharge [RC] PER UNIT ROUTINE Care 11/12/16 13:47 Active Aspirin [Ecotrin] Med 11/12/16 09:00 Active 325 mg PO BID Calcium Carbonate [Tums] Med 11/12/16 09:00 Active 1,500 mg PO DAILY Cholecalciferol (Vitamin D3) [Vitamin D3] Med 11/12/16 09:00 Active 1,000 units PO DAILY Docusate Sodium [Colace] Med 11/11/16 21:00 Active 100 mg PO BID Famotidine [Pepcid] Med 11/11/16 21:00 Active 20 mg PO Q12H Multivitamins,Therapeutic [Thera] Med 11/12/16 07:00 Active 1 each PO WITHBREAKFAST Sennosides [Senna] Med 11/11/16 21:00 Active 8.6 mg PO BID PRN Medication Orders Aspirin (Ecotrin) 325 mg PO BID [facility] Last Admin: 11/12/16 08:04 Dose: 325 mg Bisacodyl (Dulcolax) 5 mg PO DAILY PRN PRN Reason: Constipation Calcium Carbonate/Glycine (Tums) 1,500 mg PO DAILY [facility] Last Admin: 11/12/16 08:03 Dose: 1,500 mg Cholecalciferol (Vitamin D3) 1,000 units PO DAILY [facility] Last Admin: 11/12/16 08:04 Dose: 1,000 units Docusate Sodium (Colace) 100 mg PO BID [facility] Last Admin: 11/12/16 08:04 Dose: 100 mg Admin: 11/11/16 19:59 Dose: 100 mg Famotidine (Pepcid) 20 mg PO Q12H [facility] Last Admin: 11/12/16 08:04 Dose: 20 mg Admin: 11/11/16 19:59 Dose: 20 mg Magnesium Hydroxide (Milk Of Magnesia) 30 ml PO BID PRN PRN Reason: Constipation Morphine Sulfate (Morphine) 2 mg IVPUSH Q2H PRN PRN Reason: Breakthrough Pain Multivitamins (Thera) 1 each PO WITHBREAKFAST [facility] Last Admin: 11/12/16 06:28 Dose: 1 each Ondansetron HCl (Zofran) 4 mg IVPUSH Q6H PRN PRN Reason: Nausea/Vomiting Last Admin: 11/12/16 12:35 Dose: 4 mg Oxycodone/Acetaminophen (Percocet 325-5 Mg) 1 - 2 tab PO Q4H PRN PRN Reason: Pain Last Admin: 11/12/16 15:22 Dose: 2 tab Admin: 11/12/16 10:43 Dose: 2 tab Admin: 11/12/16 06:27 Dose: 2 tab Admin: 11/12/16 01:21 Dose: 2 tab Admin: 11/11/16 19:59 Dose: 2 tab Admin: 11/11/16 14:50 Dose: 2 tab Senna (Senna) 8.6 mg PO BID PRN PRN Reason: Constipation - Assessment Assessment (Free Text/Narrative):: POD#1 - left TKA - Plan Plan (Free Text/Narrative):: 1. Hgb 9.3. 2. ASA BID. Frequent mobility, TEDs. 3. The pt has met inpatient therapy goals and has been cleared for discharge by Hospitalist service. 4. Outpatient P.T. The pt's case was discussed with Dr. Levy today.
--- NOTE | 2016-11-13 11:40 | PCM.DCSUM1 ---
Discharge Summary - Hospital Course Brief History: Winsome is an 81 yo female who underwent left TKA with Dr. Levy on 11-11-16. The procedure was completed under spinal anesthesia with MAC. The pt tolerated the procedure well and was admitted to the Medical-Surgical Unit. Medical management was provided by the Hospitalist service. The pt's Hospital course was uneventful. The pt's Hgb on POD#1 was 9.3. On POD#1, 325mg ASA BID was initiated for VTE prophylaxis. SCDs and TEDs were also ordered. A Mepilex dressing was placed at the incision site at the time of surgery and remained clean and dry. The pt participated in P.T. and O.T. and progressed well. The pt was allowed to WBAT. On POD#1, the pt was deemed appropriate to discharge to home with her friend. - Discharge Data Discharge Date: 11/12/16 Discharge Disposition: Home, Self-Care 01 Condition: Good - Patient Summary/Data Consults: Consultations 11/11/16 06:47 Consult to Case Management [CONS] Routine Consult to Physician [CONS] Routine OT Evaluation and Treatment [CONS] Routine 11/11/16 06:50 PT Evaluation and Treatment [CONS] Routine 11/11/16 13:41 Consult to Dietary [Consult to Technical Sales Engineer] [CONS] Routine - Patient Instructions Diet: Usual Diet as Tolerated Activity: Apply Ice, As Tolerated, Elevate Extremity, Full Weight Bearing Driving: Do Not Drive Showering/Bathing: May Shower Wound/Incision Care: Keep Operative Site/Wound Site Clean and Dry, Do NOT Change Dressing Notify Provider of: Fever, Increased Pain, Swelling and Redness, Drainage, Nausea and/or Vomiting Other/Special Instructions: Please get up and moving around every hour while awake. This helps to prevent blood clots. Please take 325mg aspirin twice daily - this also helps to prevent blood clots. The medication is being used for blood clot prevention and not for pain control, so please use the medication TWICE daily as directed. Please wear the MERRILL hose during the day and you may remove them at night. Please schedule for P.T. Complete the P.T. exercises and stretches that were instructed in the Hospital. Please use the pain medication as needed. The medication may cause drowsiness and/or constipation. You could use a stool softener like docusate sodium or Colace 100mg twice daily and/or a laxative like polyethylene glycol or Miralax daily for constipation. Contact your primary care provider for further instructions if you are constipated. Please schedule an appointment with your primary care provider for 'routine post-op care'. Use the incentive spirometer often. Please place ice to the knee often. Please elevate the limb to decrease swelling. Keep the Mepilex dressing in place until follow-up. Please call [phone] with questions or concerns. - Discharge Plan Prescriptions/Med Rec: oxyCODONE HCl/Acetaminophen [Percocet 5-325 mg Tablet] 1 - 2 each PO Q4HR PRN # 60 tablet PRN Reason: Pain Aspirin 325 mg PO BID #84 tablet Ondansetron [Zofran ODT] 4 mg PO Q6H PRN #1 tab.dis PRN Reason: Nausea Home Medications: Home Meds Calcium Carbonate [Calcium] 1,500 mg PO DAILY 11/08/16 [History] Cholecalciferol (Vitamin D3) [Vitamin D3] 1,000 unit PO DAILY 11/08/16 [History] Aspirin 325 mg PO BID #84 tablet 11/12/16 [Rx] Ondansetron [Zofran ODT] 4 mg PO Q6H PRN #1 tab.dis 11/12/16 [Rx] oxyCODONE HCl/Acetaminophen [Percocet 5-325 mg Tablet] 1 - 2 each PO Q4HR PRN # 60 tablet 11/12/16 [Rx] Patient Handouts: Total Knee Replacement, Care After, [id number], Total Knee Replacement, [id number], Aspirin, ASA oral tablets, Knee Rehabilitation Guidelines Following Surgery Referrals: Bridgette Lee PA-C [Physician Financial Secretary] - 11/19/16 9:00 am Cheyenne Muse PA-C [Primary Care Provider] - 11/19/16 10:00 am - Patient Data Vitals - Most Recent: Last Vital Signs Temp 97.2 F 11/12/16 11:39 Pulse 70 11/12/16 11:39 Resp 14 11/12/16 11:39 BP 110/54 L 11/12/16 11:39 Pulse Ox 95 11/12/16 11:39 Weight - Most Recent: 191 lb 14.4 oz Med Orders - Current: Current Medications Discontinued Medications Aspirin (Ecotrin) 325 mg PO BID [facility] Last Admin: 11/12/16 08:04 Dose: 325 mg Bisacodyl (Dulcolax) 5 mg PO DAILY PRN PRN Reason: Constipation Bupivacaine HCl (Marcaine 0.25%) Confirm Administered Dose 30 ml .ROUTE .STK- MED ONE Stop: 11/11/16 08:11 Last Admin: 11/11/16 11:06 Dose: 30 ml Calcium Carbonate/Glycine (Tums) 1,500 mg PO DAILY [facility] Last Admin: 11/12/16 08:03 Dose: 1,500 mg Cefazolin Sodium (Ancef) Confirm Administered Dose 2 gm .ROUTE .STK-MED ONE Stop: 11/11/16 07:13 Last Admin: 11/11/16 11:03 Dose: 2 gm Cefazolin Sodium (Ancef) Confirm Administered Dose 2 gm .ROUTE .STK-MED ONE Stop: 11/11/16 08:11 Cholecalciferol (Vitamin D3) 1,000 units PO DAILY [facility] Last Admin: 11/12/16 08:04 Dose: 1,000 units Morphine Sulfate 8 mg/Epinephrine HCl 0.3 mg/Cefuroxime Sodium 750 mg/Ketorolac Tromethamine 30 mg/Sodium Chloride 27.9 ml 0 mg .XX ONETIME ONE Stop: 11/11/16 10:01 Last Admin: 11/11/16 11:05 Dose: 788.3 mg Diphenhydramine HCl (Benadryl) 25 mg IVPUSH Q6H PRN PRN Reason: pruritis Stop: 11/11/16 23:59 Docusate Sodium (Colace) 100 mg PO BID [facility] Last Admin: 11/12/16 08:04 Dose: 100 mg Ephedrine Sulfate (Ephedrine In Ns) Confirm Administered Dose 25 mg .ROUTE .STK- MED ONE Stop: 11/11/16 11:23 Famotidine (Pepcid) 20 mg PO Q12H [facility] Last Admin: 11/12/16 08:04 Dose: 20 mg Fentanyl (Sublimaze) Confirm Administered Dose 100 mcg .ROUTE .STK-MED ONE Stop: 11/11/16 07:13 Fentanyl (Sublimaze) 50 mcg IVPUSH Q5M PRN PRN Reason: Pain Stop: 11/11/16 11:16 Hydromorphone HCl (Dilaudid) 0.5 mg IVPUSH Q15M PRN PRN Reason: severe pain Stop: 11/11/16 11:16 Lactated Ringer's (Ringers, Lactated) 1,000 mls @ 125 mls/hr IV ASDIRECTED [facility] Stop: 11/11/16 23:59 Last Admin: 11/11/16 08:25 Dose: 125 mls/hr Cefazolin Sodium/Dextrose 2 gm (/ Premix) 50 mls @ 100 mls/hr IV Q8H [facility] Stop: 11/12/16 07:59 Last Admin: 11/12/16 06:30 Dose: 100 mls/hr Lidocaine HCl (Xylocaine-Mpf 1%) Confirm Administered Dose 10 mls @ as directed .ROUTE .STK-MED ONE Stop: 11/11/16 07:13 Phenylephrine HCl 1 mg/ Sodium (Chloride) 10.1 mls @ 1 mls/sec IV TITRATE [facility] Stop: 11/11/16 23:59 Lactated Ringer's (Ringers, Lactated) Confirm Administered Dose 1,000 mls @ as directed .ROUTE .STK-MED ONE Stop: 11/11/16 11:32 Iodine (Iodine 2% Mild Tincture) Confirm Administered Dose 30 ml .ROUTE .STK- MED ONE Stop: 11/11/16 08:11 Last Admin: 11/11/16 11:00 Dose: 18 ml Lidocaine/Sodium Bicarbonate (Buffered Lidocaine 1% In Ns 8.4%) 0.25 ml IV ONETIME PRN PRN Reason: Prior to IV Start Stop: 11/11/16 16:00 Last Admin: 11/11/16 08:24 Dose: 0.25 ml Magnesium Hydroxide (Milk Of Magnesia) 30 ml PO BID PRN PRN Reason: Constipation Morphine Sulfate (Morphine) 2 mg IVPUSH Q2H PRN PRN Reason: Breakthrough Pain Morphine Sulfate (Duramorph Pf) Confirm Administered Dose 10 mg .ROUTE .STK-MED ONE Stop: 11/11/16 07:14 Multivitamins (Thera) 1 each PO WITHBREAKFAST [facility] Last Admin: 11/12/16 06:28 Dose: 1 each Naloxone HCl (Narcan) 0.1 mg IVPUSH Q5M PRN PRN Reason: Oversedation Stop: 11/11/16 12:16 Ondansetron HCl (Zofran) 4 mg IVPUSH Q6H PRN PRN Reason: Nausea/Vomiting Last Admin: 11/12/16 12:35 Dose: 4 mg Ondansetron HCl (Zofran) 4 mg IVPUSH ONETIME PRN PRN Reason: Nausea/Vomiting Stop: 11/11/16 23:59 Oxycodone/Acetaminophen (Percocet 325-5 Mg) 1 - 2 tab PO Q4H PRN PRN Reason: Pain Last Admin: 11/12/16 15:22 Dose: 2 tab Phenylephrine HCl (Phenylephrine In Ns 100 Mcg/Ml) Confirm Administered Dose 1 mg .ROUTE .STK-MED ONE Stop: 11/11/16 09:59 Propofol (Diprivan 20 Ml) Confirm Administered Dose 400 mg .ROUTE .STK-MED ONE Stop: 11/11/16 07:13 Propofol (Diprivan 20 Ml) Confirm Administered Dose 200 mg .ROUTE .STK-MED ONE Stop: 11/11/16 11:06 Senna (Senna) 8.6 mg PO BID PRN PRN Reason: Constipation Sodium Chloride (Saline Flush) 10 ml FLUSH ASDIRECTED PRN PRN Reason: Keep Vein Open Stop: 11/11/16 23:59 Tranexamic Acid (Cyklokapron) Confirm Administered Dose 1,000 mg .ROUTE .STK- MED ONE Stop: 11/11/16 08:11 Last Admin: 11/11/16 11:07 Dose: 1,000 mg *Q Meaningful Use (DIS) - VTE *Q VTE Criteria *Q: - Stroke *Q Stroke Criteria *Q: - AMI *Q AMI Criteria *Q:
--- NOTE | 2016-11-17 08:38 | PCM.OPNOTE ---
- General Post-Op/Procedure Note Date of Surgery/Procedure: 11/11/16 Operative Procedure(s): left total knee arthroplasty Pre Op Diagnosis: left knee osteoarthrosis Post-Op Diagnosis: Same Anesthesia Technique: Local, MAC, Spinal Primary Surgeon: Geo Levy Anesthesia Provider: Christina Weiner Electric Serviceman: Bridgette Lee Electric Serviceman: Ana Laura Carbajal EBL in mLs: 350 Complications: None Condition: Good
--- NOTE | 2016-11-17 13:43 | OR ---
DATE OF OPERATION: 11/11/2016 SURGEON: Geo Levy MD OPERATION PERFORMED: Left total knee arthroplasty. PREOPERATIVE DIAGNOSIS: Left knee osteoarthrosis. POSTOPERATIVE DIAGNOSIS: Left knee osteoarthrosis. ANESTHESIA: Local MAC with spinal. ANESTHESIA PROVIDER: Christina Weiner CRNA. RUBBER CALENDER HELPER: 1. Bridgette Lee PA-C. 2. Ana Laura Carbajal LPN. ESTIMATED BLOOD LOSS: 350 mL. COMPLICATIONS: None. CONDITION: Stable. IMPLANTS: 1. [place] size 4 PS femur. 2. [place] size 4 universal tibial baseplate. 3. [place] size 4, 9 mm PS X3 polyethylene. 4. [place] 29 x 9 mm asymmetric patella. DESCRIPTION OF PROCEDURE: The patient was identified in the preop holding area. Proper site was marked and identified by the surgeon. The patient was taken back to the operating theater. After adequate anesthesia, the patient's left lower extremity had a nonsterile tourniquet applied and it was then sterilely prepped and draped in the usual sterile fashion. OR timeout was performed. The patient received 2 g IV Ancef. At this time, left lower extremity was exsanguinated. Tourniquet was insufflated to 300 mmHg. Standard medial parapatellar incision was made. Medial parapatellar arthrotomy was created. Deep fibers of the MCL were raised and anterior fat pad was resected. At this time, attention was turned to the patella. An 8 mm resected off the distal femur. Patella measured 23, it was resected to a 13 for a 29 x 9 mm patella. Drill holes were then drilled and found to be in adequate position. The drill was then drilled in the distal femur and the intramedullary distal femoral cutting guide was then placed. 8 mm was resected off the distal femur and was found to be an adequate resection. Sizing guide was placed. It was found to be a size 4 femur that was shown on the implant record at the beginning of this dictation. The drill holes were drilled for the epicondylar axis using [place] line and epicondyles as reference. At this time, the 4-in-1 cutting block was placed. An anterior posterior and anterior and posterior chamfer cuts were then completed. The correct size box cut was then placed and the box cut was completed and found to be an adequate resection. Attention was turned to the tibia. The posterior medial lateral retractors were placed. The extramedullary tibial guide was placed. It was placed in the old footprint of the ACL. It was aligned with the center of the ankle and 0 degrees of slope, 9 mm was then resected off the unaffected lateral side. There was found to be an acceptable reduction. At this time, posterior osteophytes were removed along with medial and lateral meniscus. A trial implant was placed with a correct sized tibia that was mentioned at the beginning of the dictation. A 9 mm X3 polyethylene was then placed. The patient's knee was brought through range of motion. The patella was tracking centrally and was stable to varus and valgus stress. Alignment was found to be roughly at 0 degrees. At this time, cement was mixed on the back table. The tibia was stamped and drilled in proper rotation. All cut surfaces were irrigated with pulse lavage irrigation with Ancef and then completely dried. Once this was completed, then the cement was ready. The universal tibial base plate was cemented in place. Next, the [address] and the 9 mm X3 polyethylene was placed. The patient's knee was brought into full extension. Excess cement was removed. The patella was then cemented in place at this time. Tourniquet was deflated. One liter dilute Betadine solution was irrigated through the knee along with 3 L of pulse lavage irrigation with Ancef. Periarticular injection was then completed. The patient's knee was brought through a range of motion. Once the cement had time to set up and it was found to be stable to varus valgus stress, the patella was tracking centrally with full range of motion. At this time, a #2 barbed suture was used for closure of the medial parapatellar arthrotomy. Topical tranexamic acid was placed. 2-0 Vicryl was used subcutaneously, a running 3-0 Monocryl was used subcuticularly. The patient tolerated the procedure well and was sent to the PACU in stable condition. MMGISEL /[id number]
== END 2016-11-12 15:22 | disposition home or self-care (01) | DRG 470 ==
LOC: JD.MS 07:54
PROVIDERS: ADMIT Orthopaedic Surgery; ATTEND Orthopaedic Surgery
PROC: 0SRD0J9 Replacement of Left Knee Joint with Synthetic Substitute, Cemented, Open Approach (ICD-10-PCS; principal; 2016-11-11)
DX: M17.0 Bilateral primary osteoarthritis of knee (principal); E78.2 Mixed hyperlipidemia; M81.0 Age-related osteoporosis without current pathological fracture; Z96.641 Presence of right artificial hip joint; R01.1 Cardiac murmur, unspecified; I10 Essential (primary) hypertension; E78.00 Pure hypercholesterolemia, unspecified
CPT/HCPCS: 01402; 36415; 73560-26-LT; 73560-LT; 80053; 85025; 87641; 94762; 97110-GP; 97116-GP; 97161-GP; 97165-GO; 97535-GO; A9270-GY; C1713; C1776; J0171; J0690; J0697; J1885; J2270; J2405; J2704; J3010; J3490; J7050; J7120

== ENCOUNTER 2016-12-02 10:36 | Emergency (ER) | payer MEDICARE, BC ==
[2016-12-02 10:52] VITALS: BP 113/80
--- NOTE | 2016-12-02 11:44 | EDM.PDOC ---
ED HPI GENERAL MEDICAL PROBLEM - General Chief Complaint: Gastrointestinal Problem Stated Complaint: RECTAL/VAGINAL BLEEDING Time Seen by Provider: 12/02/16 11:33 Source of Information: Reports: Patient History Limitations: Reports: No Limitations - History of Present Illness INITIAL COMMENTS - FREE TEXT/NARRATIVE: 81-year-old female presents for evaluation treatment or bloody stools. Reports the bloody stools began yesterday. She has had these in the past. She states she 's had about 5 episodes today. She has been passing clots. She denies any pain. She reports that her stomach feels queasy. Denies any nausea, vomiting, fevers, chills, lightheadedness or dizziness. She is not on any blood thinners. Takes 325mg aspirin bid. Last colonoscopy was June 2016. Patient reports that she was admitted to the hospital in [place] for similar incidents. She states at that time the bleeding was much worse. Once admitted to the hospital the bleeding had subsided. She was not given any blood. She is unsure exactly how low her hemoglobin dropped. She reports upon hospitalization the bleeding stopped. She did have a colonoscopy and had 3 polyps removed but no source of bleeding was identified. Unable to recall if she had an EGD. Patient was admitted to our facility for a left knee replacement early November. This was preformed by Dr. Levy. - Related Data Allergies Allergy/AdvReac Type Severity Reaction Status Date / Time No Known Allergies Allergy Verified 12/02/16 10:52 Home Meds: Home Meds Calcium Carbonate [Calcium] 1,500 mg PO DAILY 11/08/16 [History] Cholecalciferol (Vitamin D3) [Vitamin D3] 1,000 unit PO DAILY 11/08/16 [History] Aspirin 325 mg PO BID #84 tablet 11/12/16 [Rx] Ondansetron [Zofran ODT] 4 mg PO Q6H PRN #1 tab.dis 11/12/16 [Rx] oxyCODONE HCl/Acetaminophen [Percocet 5-325 mg Tablet] 1 - 2 each PO Q4HR PRN # 60 tablet 11/12/16 [Rx] Omeprazole 20 mg PO DAILY #14 cap.cr 12/02/16 [Rx] Past Medical History HEENT History: Reports: Impaired Vision Other HEENT History: excessive cerumen, glasses, dentures Cardiovascular History: Reports: Heart Murmur, High Cholesterol Respiratory History: Reports: None Gastrointestinal History: Reports: GI Bleed, Hiatal Hernia Other Gastrointestinal History: abdominal pain Genitourinary History: Reports: Other (See Below) Other Genitourinary History: UTI WASHER MEAT History: Reports: None Musculoskeletal History: Reports: Other (See Below) Other Musculoskeletal History: L knee pain, L knee OA, mild scoliosis Neurological History: Reports: Other (See Below) Other Neuro History: dizziness Psychiatric History: Reports: None Endocrine/Metabolic History: Reports: None Hematologic History: Reports: None Immunologic History: Reports: None Oncologic (Cancer) History: Reports: None Dermatologic History: Reports: None - Past Surgical History Female Surgical History: Reports: Hysterectomy Musculoskeletal Surgical History: Reports: Hip Replacement, Knee Replacement Social & Family History - Family History Cardiac: Reports: CAD - Tobacco Use Smoking Status *Q: Never Smoker Second Hand Smoke Exposure: No - Caffeine Use Caffeine Use: Reports: Coffee - Alcohol Use Days Per Week of Alcohol Use: 0 - Recreational Drug Use Recreational Drug Use: No ED ROS GENERAL - Review of Systems Review Of Systems: See Below Constitutional: Reports: Decreased Appetite. Denies: Fever, Chills GI/Abdominal: Reports: Bloody Stool, Diarrhea. Denies: Abdominal Pain, Nausea, Vomiting : Reports: No Symptoms Neurological: Denies: Dizziness ED EXAM, GI/ABD - Physical Exam Exam: See Below Exam Limited By: No Limitations General Appearance: Alert, WD/WN, No Apparent Distress Respiratory/Chest: No Respiratory Distress Cardiovascular: Normal Peripheral Pulses, Regular Rate, Rhythm, Systolic Murmur (grade 2 systolic heart murmur) GI/Abdominal: Normal Bowel Sounds, Soft, Non-Tender Rectal (Female) Exam: Normal Exam, Normal Rectal Tone, Bloody Stool, Heme + Stool Neurological: Alert, Oriented, Normal Cognition Psychiatric: Normal Affect, Normal Mood Skin Exam: Warm, Dry, Normal Color EKG INTERPRETATION EKG Date: 12/02/16 Time: 12:05 Rhythm: NSR Rate (beats/min): 73 [place]: normal P-wave: present QRS: normal ST-T: normal QT: normal EKG Interpretation Comments: NSR at 73 bpm. Consider left atrial hypertrophy. Diffuse early repolarization pattern. No ischemia. Reviewed by myself and Dr. Do. Course - Vital Signs Last Recorded V/S: Last Vital Signs Temp 36.5 C 12/02/16 10:46 Pulse 111 H 12/02/16 10:46 Resp 18 12/02/16 10:46 BP 113/80 12/02/16 10:46 Pulse Ox 98 12/02/16 10:46 - Orders/Labs/Meds Orders: Active Orders 24 hr Category Date Time Status Cardiac Monitoring [RC] . DIRECTED Care 12/02/16 11:45 Active EKG Documentation Completion [RC] STAT Care 12/02/16 11:45 Active Peripheral IV Care [RC] . DIRECTED Care 12/02/16 11:45 Active Peripheral IV Insertion Adult [OM.PC] Routine Oth 12/02/16 11:45 Ordered Labs: Laboratory Tests 12/02/16 12/02/16 12/02/16 Range/Units 11:59 11:59 11:59 WBC 7.29 (3.98-10.04) K/mm3 RBC 3.83 L (3.98-5.22) M/mm3 Hgb 10.3 L (11.2-15.7) gm/L Hct 33.5 L (34.1-44.9) % MCV 87.5 (79.4-94.8) fl MCH 26.9 (25.6-32.2) pg MCHC 30.7 L (32.2-35.5) g/dl RDW Std Deviation 65.1 H (36.4-46.3) fL Plt Count 561 H (182-369) K/mm3 MPV 9.0 L (9.4-12.3) fl Neut % (Auto) 72.9 H (34.0-71.1) % Lymph % (Auto) 17.7 L (19.3-51.7) % [place] % (Auto) 7.8 (4.7-12.5) % Eos % (Auto) 1.2 (0.7-5.8) Baso % (Auto) 0.4 (0.1-1.2) % Neut # (Auto) 5.31 (1.56-6.13) K/mm3 Lymph # (Auto) 1.29 (1.18-3.74) K/mm3 [place] # (Auto) 0.57 H (0.24-0.36) K/mm3 Eos # (Auto) 0.09 (0.04-0.36) K/mm3 Baso # (Auto) 0.03 (0.01-0.08) K/mm3 Manual Slide Review Not Reportable PT 10.8 (8.0-13.0) SECONDS INR 0.99 APTT 27 (22-36) SECONDS Sodium 142 (136-145) mEq/L Potassium 4.0 (3.5-5.1) mEq/L Chloride 106 (98-107) mEq/L Carbon Dioxide 27 (21-32) mEq/L Anion Gap 13.0 (5-15) BUN 13 (7-18) mg/dL Creatinine 0.8 (0.55-1.02) mg/dL Est Cr Clr Drug Dosing 43.62 mL/min Estimated GFR (MDRD) > 60 (>60) mL/min BUN/Creatinine Ratio 16.3 (14-18) Glucose 105 (83-115) mg/dL Calcium 8.5 (8.5-10.1) mg/dL Total Bilirubin 0.5 (0.2-1.0) mg/dL AST 14 L (15-37) U/L ALT 17 (14-59) U/L Alkaline Phosphatase 105 (46-116) U/L B-Natriuretic Peptide (0-100) pg/mL Total Protein 6.3 L (6.4-8.2) g/dl Albumin 3.0 L (3.4-5.0) g/dl Globulin 3.3 gm/dL Albumin/Globulin Ratio 0.9 L (1-2) Urine Color (Yellow) Urine Appearance (Clear) Urine pH (5.0-8.0) Ur Specific [place] (1.005-1.030) Urine Protein (Negative) Urine Glucose (UA) (Negative) Urine Ketones (Negative) Urine Occult Blood (Negative) Urine Nitrite (Negative) Urine Bilirubin (Negative) Urine Urobilinogen (0.2-1.0) Ur Leukocyte Esterase (Negative) Urine RBC (0-5) /hpf Urine WBC (0-5) /hpf Ur Epithelial Cells (0-5) /hpf Urine Bacteria (FEW) /hpf Urine Mucus (FEW) /hpf 12/02/16 12/02/16 Range/Units 11:59 14:25 WBC (3.98-10.04) K/mm3 RBC (3.98-5.22) M/mm3 Hgb (11.2-15.7) gm/L Hct (34.1-44.9) % MCV (79.4-94.8) fl MCH (25.6-32.2) pg MCHC (32.2-35.5) g/dl RDW Std Deviation (36.4-46.3) fL Plt Count (182-369) K/mm3 MPV (9.4-12.3) fl Neut % (Auto) (34.0-71.1) % Lymph % (Auto) (19.3-51.7) % [place] % (Auto) (4.7-12.5) % Eos % (Auto) (0.7-5.8) Baso % (Auto) (0.1-1.2) % Neut # (Auto) (1.56-6.13) K/mm3 Lymph # (Auto) (1.18-3.74) K/mm3 [place] # (Auto) (0.24-0.36) K/mm3 Eos # (Auto) (0.04-0.36) K/mm3 Baso # (Auto) (0.01-0.08) K/mm3 Manual Slide Review PT (8.0-13.0) SECONDS INR APTT (22-36) SECONDS Sodium (136-145) mEq/L Potassium (3.5-5.1) mEq/L Chloride (98-107) mEq/L Carbon Dioxide (21-32) mEq/L Anion Gap (5-15) BUN (7-18) mg/dL Creatinine (0.55-1.02) mg/dL Est Cr Clr Drug Dosing mL/min Estimated GFR (MDRD) (>60) mL/min BUN/Creatinine Ratio (14-18) Glucose (83-115) mg/dL Calcium (8.5-10.1) mg/dL Total Bilirubin (0.2-1.0) mg/dL AST (15-37) U/L ALT (14-59) U/L Alkaline Phosphatase (46-116) U/L B-Natriuretic Peptide 168 H (0-100) pg/mL Total Protein (6.4-8.2) g/dl Albumin (3.4-5.0) g/dl Globulin gm/dL Albumin/Globulin Ratio (1-2) Urine Color Yellow (Yellow) Urine Appearance Clear (Clear) Urine pH 6.0 (5.0-8.0) Ur Specific [place] 1.025 (1.005-1.030) Urine Protein Trace H (Negative) Urine Glucose (UA) Negative (Negative) Urine Ketones 1+ H (Negative) Urine Occult Blood Negative (Negative) Urine Nitrite Negative (Negative) Urine Bilirubin Negative (Negative) Urine Urobilinogen 0.2 (0.2-1.0) Ur Leukocyte Esterase Trace H (Negative) Urine RBC 0-5 (0-5) /hpf Urine WBC 5-10 H (0-5) /hpf Ur Epithelial Cells 0-5 (0-5) /hpf Urine Bacteria Rare (FEW) /hpf Urine Mucus Moderate H (FEW) /hpf Meds: Medications Discontinued Medications Generic Name Dose Route Start Last Admin Trade Name Freq PRN Reason Stop Dose Admin Sodium Chloride 1,000 mls @ 999 mls/hr 12/02/16 11:46 12/02/16 11:55 Normal Saline IV 12/02/16 12:46 999 mls/hr ONETIME ONE Administration Sodium Chloride 10 ml 12/02/16 11:45 12/02/16 11:55 Saline Flush FLUSH 10 ml ASDIRECTED PRN Administration Keep Vein Open - Radiology Interpretation Free Text/Narrative:: Chest x-ray one view impression per Dr. Roche: heart size appears within normal limits for portable technique. Mild tortuosity of the thoracic aorta is seen. Lungs are clear but slightly hyperinflated compatible with emphysematous change. Bony structures are grossly intact. Findings suspicious for chronic rotator cuff tear noted within the right shoulder. Mild scoliosis present within the spine scattered degenerative changes are seen within. - Re-Assessments/Exams Free Text/Narrative Re-Assessment/Exam: 12/02/16 14:45 Labs have returned. White blood cell count is 7.29, hemoglobin is 10.3 and platelets of 561. Review of charts show hemoglobin of 10.5 on 11-19-16 and 9.3 on . Sodium is 142, potassium is 4.0 chloride is 106. Anion gap is 13. BUN is 13. BNP is 168. PT is 10.8, INR 0.99. PTT is 27. UA has trace protein, 1+ ketones and trace leukocytes. I discussed the lab, imaging and EKG results with the patient. The patient would like to go home today. She does not want to be admitted to the hospital if it can be avoided. She reports that she [place] only a few blocks away from the hospital. I discussed the case with Dr. Bray. He feels that she could go home. We will hold aspirin for 3 days and then continue on aspirin once a day. Close followup with primary care provider in 2 days. Discharge instructions as documented. Departure - Departure Time of Disposition: 14:50 Disposition: Home, Self-Care 01 Condition: fair Clinical Impression: GI bleed - Discharge Information Prescriptions: Omeprazole 20 mg PO DAILY #14 cap.cr Instructions: Gastrointestinal Bleeding Referrals: Cheyenne Muse PA-C [Primary Care Provider] - Forms: ED Department Discharge Additional Instructions: Hold aspirin x 3 days; restart 12-05-16 with only 1 325mg aspirin daily priolsec 1 cap PO daily Follow-up with PCP in 2 days May continue with PT as tolerated. Any weakness, dizziness, lightheadedness or other concerning symptom stop. Please return to the ER immediately should your symptoms change or worsen. - My Orders Last 24 Hours: My Active Orders 12/02/16 11:45 Cardiac Monitoring [RC] . DIRECTED EKG Documentation Completion [RC] STAT Peripheral IV Care [RC] . DIRECTED Peripheral IV Insertion Adult [OM.PC] Routine - Assessment/Plan Last 24 Hours: My Active Orders 12/02/16 11:45 Cardiac Monitoring [RC] . DIRECTED EKG Documentation Completion [RC] STAT Peripheral IV Care [RC] . DIRECTED Peripheral IV Insertion Adult [OM.PC] Routine
[2016-12-02] MEDS ORDERED: Sodium Chloride 0.9% 10 ML Syringe FLUSH PRN (11:45)
[2016-12-02] MEDS ORDERED: Sodium Chloride 0.9% 1,000 ML IV ONE (11:46)
--- NOTE | 2016-12-02 13:46 | CR ---
Chest: Portable view of the chest was obtained. Comparison: Previous chest x-ray of 11/01/16. Heart size appears within normal limits for portable technique. Mild tortuosity of the thoracic aorta is seen. Lungs are clear but slightly hyperinflated compatible with emphysematous change. Bony structures are grossly intact. Findings suspicious for chronic rotator cuff tear noted within the right shoulder. Mild scoliosis present within the spine with scattered degenerative change also seen within the spine. Impression: 1. Chronic findings as described above. Nothing acute is appreciated on portable chest x-ray. Diagnostic code #2
== END 2016-12-02 15:19 | disposition home or self-care (01) ==
LOC: JD.ED 10:36
DX: K92.2 Gastrointestinal hemorrhage, unspecified (principal); E78.00 Pure hypercholesterolemia, unspecified; Z79.82 Long term (current) use of aspirin; Z79.899 Other long term (current) drug therapy; Z87.440 Personal history of urinary (tract) infections; Z90.710 Acquired absence of both cervix and uterus; Z96.659 Presence of unspecified artificial knee joint; Z96.649 Presence of unspecified artificial hip joint
CPT/HCPCS: 36415; 71010; 80053; 81001; 83880; 85025; 85610; 85730; 93005; 96360; 99285; J7040; J7050; 99283

== ENCOUNTER 2017-09-01 06:31 | Day surgery (SDC) | payer MEDICARE, BC ==
[~2017-09-01 06:31] MED LIST changes: -Bisacodyl 5 MG Tab PO PRN; +Lidocaine 1% 4 ML ONE; +Lidocaine 1%/Sod Bicarbonate in NS 8.4% 1 ML Syringe IDERM PRN; -Lidocaine 1%/Sod Bicarbonate in NS 8.4% 1 ML Syringe IV PRN; -Magnesium Hydroxide 400 MG/5 ML Susp 30 ML Cup PO PRN; -Morphine 2 MG/ML Syringe IVPUSH PRN; +Morphine PF 1 MG/ML Amp ONE; -Morphine PF 10 MG/10 ML SDV ONE; -Ondansetron 4 MG/2 ML SDV IVPUSH PRN; +ceFAZolin 1 GM Vial ONE
--- NOTE | 2017-09-01 06:35 | PCM.PREANE ---
Preanesthetic Assessment - Anesthesia/Transfusion/Family Hx Anesthesia History: Prior Anesthesia Without Reaction Family History of Anesthesia Reaction: No Transfusion History: No Prior Transfusion(s) - Review of Systems General: No Symptoms Pulmonary: No Symptoms Cardiovascular: No Symptoms Gastrointestinal: No Symptoms Neurological: No Symptoms Other: Reports: Easy Bruising - Physical Assessment NPO Status Date: 08/31/17 NPO Status Time: 19:00 Pulse: 86 O2 Sat by Pulse Oximetry: 94 Respiratory Rate: 16 Blood Pressure: 156/75 Temperature: 98.5 F Height: 5 ft Weight: 84.686 kg ASA Class: 2 Mental Status: Alert & Oriented x3 Airway Class: Mallampati = 1 Dentition: Reports: Dentures (top and bottom) Thyro-Mental Finger Breadths: 3 Mouth Opening Finger Breadths: 3 ROM/Head Extension: Full Lungs: Clear to Auscultation, Normal Respiratory Effort Cardiovascular: Regular Rate, Regular Rhythm, Murmurs - Lab Values: Laboratory Last Values MRSA (PCR) Negative 08/20/17 13:13 - Allergies Allergies/Adverse Reactions: Allergies Allergy/AdvReac Type Severity Reaction Status Date / Time No Known Allergies Allergy Verified 08/29/17 13:40 - Blood Blood Available: No - Acknowledgements Anesthesia Type Planned: Spinal Pt an Appropriate Candidate for the Planned Anesthesia: Yes Alternatives and Risks of Anesthesia Discussed w Pt/Guardian: Yes Pt/Guardian Understands and Agrees with Anesthesia Plan: Yes PreAnesthesia Questionnaire HEENT History: Reports: Impaired Vision Other HEENT History: excessive cerumen, glasses, dentures Cardiovascular History: Reports: Heart Murmur, High Cholesterol Respiratory History: Reports: None Gastrointestinal History: Reports: GERD, GI Bleed, Hiatal Hernia Other Gastrointestinal History: abdominal pain Genitourinary History: Reports: UTI, Recurrent, Other (See Below) Other Genitourinary History: UTI PERSONNEL CONSULTANT History: Reports: None Musculoskeletal History: Reports: Osteoarthritis, Osteoporosis, Other (See Below ) Other Musculoskeletal History: L knee pain, L knee OA, mild scoliosis Neurological History: Reports: Other (See Below) Other Neuro History: dizziness Psychiatric History: Reports: None Endocrine/Metabolic History: Reports: None Hematologic History: Reports: None Immunologic History: Reports: None Oncologic (Cancer) History: Reports: None Dermatologic History: Reports: None - Past Surgical History Head Surgeries/Procedures: Reports: None Cardiovascular Surgical History: Reports: None Respiratory Surgical History: Reports: None GI Surgical History: Reports: Cholecystectomy, Colonoscopy Female Surgical History: Reports: Hysterectomy Endocrine Surgical History: Reports: None Neurological Surgical History: Reports: None Musculoskeletal Surgical History: Reports: Hip Replacement, Knee Replacement Other Musculoskeletal Surgeries/Procedures:: Rt hip replacement Oncologic Surgical History: Reports: None Dermatological Surgical History: Reports: None - SUBSTANCE USE Smoking Status *Q: Never Smoker Tobacco Use Within Last Twelve Months: No Second Hand Smoke Exposure: No Days Per Week of Alcohol Use: 2 (0 to 2 times a week) Number of Drinks Per Day: 1 Total Drinks Per Week: 2 Recreational Drug Use History: No - HOME MEDS Home Medications: Home Meds Calcium Carbonate [Calcium] 1,500 mg PO DAILY 11/08/16 [History] Cholecalciferol (Vitamin D3) [Vitamin D3] 1,000 unit PO DAILY 11/08/16 [History] Omeprazole 20 mg PO DAILY #14 cap.cr 12/02/16 [Rx] - CURRENT (IN HOUSE) MEDS Current Meds: Current Medications Lactated Ringer's (Ringers, Lactated) 1,000 mls @ 125 mls/hr IV ASDIRECTED TWYLA Stop: 09/01/17 23:00 Lidocaine/Sodium Bicarbonate (Buffered Lidocaine 1% In Ns 8.4%) 0.25 ml IDERM ONETIME PRN PRN Reason: Prior to IV Start Stop: 09/01/17 18:00 Sodium Chloride (Saline Flush) 10 ml FLUSH ASDIRECTED PRN PRN Reason: Keep Vein Open Stop: 09/01/17 18:00 Discontinued Medications Cefazolin Sodium (Ancef) Confirm Administered Dose 2 gm .ROUTE .STK-MED ONE Stop: 09/01/17 06:22 Fentanyl (Sublimaze) Confirm Administered Dose 100 mcg .ROUTE .STK-MED ONE Stop: 09/01/17 06:21 Lidocaine HCl (Xylocaine-Mpf 1%) Confirm Administered Dose 4 mls @ as directed .ROUTE .STK-MED ONE Stop: 09/01/17 06:21 Morphine Sulfate (Duramorph Pf) Confirm Administered Dose 1 mg .ROUTE .STK-MED ONE Stop: 09/01/17 06:09 Propofol (Diprivan 20 Ml) Confirm Administered Dose 400 mg .ROUTE .STK-MED ONE Stop: 09/01/17 06:21
[2017-09-01] MEDS ORDERED: Ondansetron 4 MG/2 ML SDV IVPUSH PRN ×2 (06:44→07:38)
[2017-09-01] MEDS ORDERED: Magnesium Hydroxide 400 MG/5 ML Susp 30 ML Cup PO PRN (06:44)
[2017-09-01] MEDS ORDERED: Naloxone 0.4 MG/ML SDV IVPUSH PRN (06:44)
[2017-09-01] MEDS ORDERED: Morphine 2 MG/ML Syringe IVPUSH PRN (06:44)
[2017-09-01] MEDS ORDERED: Sennosides 8.6 MG Tab PO PRN (06:44)
[2017-09-01] MEDS ORDERED: Bisacodyl 5 MG Tab PO PRN (06:44)
[2017-09-01] MEDS ORDERED: ePHEDrine 50 MG/ML SDV ONE (07:37)
[2017-09-01] MEDS ORDERED: diphenhydrAMINE 50 MG/ML SDV IVPUSH PRN (07:38)
[2017-09-01] MEDS ORDERED: fentaNYL 100 MCG/2 ML SDV IVPUSH PRN (07:38)
[2017-09-01] MEDS ORDERED: Lactated Ringers 1,000 ML ONE ×2 (07:39→09:14)
[2017-09-01] MEDS ORDERED: Phenylephrine/Normal Saline 100 MCG/ML 10 ML Syringe ONE (07:47)
[2017-09-01] MEDS ORDERED: Morphine 4 MG/ML Syringe IVPUSH PRN (07:57)
[2017-09-01] MEDS: Iodine/Sodium Iodide 2% Tincture 30 ML Bottle ONE ×2 (08:12→08:37)
[2017-09-01] MEDS: ceFAZolin 1 GM Vial ONE ×2 (08:13→08:39)
[2017-09-01] MEDS: Bupivacaine 0.25% 30 ML SDV ONE ×2 (08:13→08:43)
[2017-09-01] MEDS: Vancomycin 1 GM SDV ONE ×2 (08:14→08:45)
[2017-09-01] MEDS: Morphine 8 MG, EPINEPHrine 0.3 MG, Cefuroxime 750 MG, Ketorolac 30 MG, Sodium Chloride ... ONE ×10 (08:14→08:42)
[2017-09-01] MEDS ORDERED: Propofol 200 MG/20 ML SDV ONE (08:45)
--- NOTE | 2017-09-01 09:26 | PCM.POSTAN ---
POST ANESTHESIA ASSESSMENT - MENTAL STATUS Mental Status: Alert, Oriented - VITAL SIGNS Pulse Rate: 84 SaO2: 97 Resp Rate: 16 Blood Pressure: 99/69 Temperature: 98.1 F - RESPIRATORY Respiratory Status: Respiratory Rate WNL, Airway Patent, O2 Saturation Stable, Supplemental Oxygen - CARDIOVASCULAR CV Status: Pulse Rate WNL, Blood Pressure Stable - GASTROINTESTINAL GI Status: No Symptoms - PAIN Pain Score: 0 - POST OP HYDRATION Hydration Status: Adequate & Stable
--- NOTE | 2017-09-01 10:05 | CR ---
Right knee: AP and lateral views of the right knee were obtained. Comparison: Previous right knee exam of 04/29/16. Recently placed right knee prosthesis is seen. Components are aligned. Soft tissue air is noted from the surgical procedure. No fracture or other abnormality is seen. Impression: 1. Satisfactory radiographic appearance of recently placed right knee prosthesis. Diagnostic code #2
[2017-09-01] MEDS: Acetaminophen/oxyCODONE 325-5 MG Tab PO PRN (13:12)
[2017-09-01] MEDS ORDERED: Aluminum Hydroxide/Magnesium Hydroxide/Simethicone Susp 30 ML Cup PO PRN (14:21)
[2017-09-01] MEDS: ceFAZolin 2 GM in Premix Bag 1 BAG IV SCH ×2 (14:43→22:39)
--- NOTE | 2017-09-01 17:08 | PCM.CONS ---
H&P History of Present Illness - General Date of Service: 09/01/17 Admit Problem/Dx: Admission Diagnosis/Problem Admission Diagnosis/Problem Osteoarthritis of knee Source of Information: Patient, Provider, RN, RN Notes Reviewed, Other ( Surgical notes ) History Limitations: Reports: No Limitations - History of Present Illness Initial Comments - Free Text/Narative: Winsome Corey is a 82 yo [address] patient of Dr. Levy who is post-operative day 0 of right TKA. Hospital medicine was consulted for post-operative medical care. At this time she is resting comfortably in bed. Pain is controlled. She denies any chest pain, shortness of breath, or palpitations. She reports some mild nausea while eating and did vomit a small amount. Nursing contacted and will give antiemetic. She carries a history of: Impaired vision, heart murmur, HLD, GERD, recurrent UTIs, OA, osteoporosis, mild scoliosis. She was never a smoker. She is a full code. Her primary care provider has been Cheyenne Muse, however she is now seeing Nidia Guevara. Right Knee Pain Score (Numeric/FACES): 0 - Related Data Allergies/Adverse Reactions: Allergies Allergy/AdvReac Type Severity Reaction Status Date / Time No Known Allergies Allergy Verified 09/01/17 07:05 Home Medications: Home Meds Calcium Carbonate [Calcium] 1,500 mg PO DAILY 11/08/16 [History] Cholecalciferol (Vitamin D3) [Vitamin D3] 1,000 unit PO DAILY 11/08/16 [History] Omeprazole 20 mg PO DAILY #14 cap.cr 12/02/16 [Rx] Denosumab [Prolia] 09/01/17 [History] Past Medical History HEENT History: Reports: Impaired Vision Other HEENT History: excessive cerumen, glasses, dentures Cardiovascular History: Reports: Heart Murmur, High Cholesterol Respiratory History: Reports: None Gastrointestinal History: Reports: GERD, GI Bleed, Hiatal Hernia Other Gastrointestinal History: abdominal pain Genitourinary History: Reports: UTI, Recurrent, Other (See Below) Other Genitourinary History: 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 Musculoskeletal History: Reports: Osteoarthritis, Osteoporosis, Other (See Below ) Other Musculoskeletal History: L knee pain, L knee OA, mild scoliosis Neurological History: Reports: Other (See Below) Other Neuro History: dizziness Psychiatric History: Reports: None Endocrine/Metabolic History: Reports: None Hematologic History: Reports: None Immunologic History: Reports: None Oncologic (Cancer) History: Reports: None Dermatologic History: Reports: None - Past Surgical History Head Surgeries/Procedures: Reports: None Cardiovascular Surgical History: Reports: None Respiratory Surgical History: Reports: None GI Surgical History: Reports: Cholecystectomy, Colonoscopy Female Surgical History: Reports: Hysterectomy Endocrine Surgical History: Reports: None Neurological Surgical History: Reports: None Musculoskeletal Surgical History: Reports: Hip Replacement, Knee Replacement Other Musculoskeletal Surgeries/Procedures:: Rt hip replacement Oncologic Surgical History: Reports: None Dermatological Surgical History: Reports: None Social & Family History - Family History Cardiac: Reports: CAD - Tobacco Use Smoking Status *Q: Never Smoker Second Hand Smoke Exposure: No - Caffeine Use Caffeine Use: Reports: Coffee - Alcohol Use Days Per Week of Alcohol Use: 2 (0 to 2 times a week) Number of Drinks Per Day: 1 Total Drinks Per Week: 2 - Recreational Drug Use Recreational Drug Use: No H&P Review of Systems - Review of Systems: Review Of Systems: See Below General: Reports: No Symptoms. Denies: Fever, Chills, Malaise HEENT: Reports: No Symptoms Pulmonary: Reports: No Symptoms. Denies: Shortness of Breath, Wheezing, Cough Cardiovascular: Reports: No Symptoms. Denies: Chest Pain, Palpitations Gastrointestinal: Reports: No Symptoms, Nausea (mild), Vomiting (once after attempting to eat ). Denies: Abdominal Pain, Constipation, Diarrhea Genitourinary: Reports: No Symptoms Musculoskeletal: Reports: Joint Pain (Right knee ) Skin: Reports: No Symptoms Psychiatric: Reports: No Symptoms Neurological: Reports: No Symptoms Hematologic/Lymphatic: Reports: No Symptoms Immunologic: Reports: No Symptoms Exam - Exam Exam: See Below - Vital Signs Vital Signs: Last Vital Signs Temp 97.8 F 09/01/17 10:30 Pulse 83 09/01/17 13:02 Resp 12 09/01/17 10:30 BP 122/74 09/01/17 13:02 Pulse Ox 97 09/01/17 13:02 Weight: 186 lb 11.2 oz - Exam Quality Assessment: Urinary Catheter, DVT Prophylaxis General: Alert, Oriented, Cooperative. No: Mild Distress HEENT: PERRLA, Hearing Intact, Mucosa Moist & [place], Nares Patent, Normal Nasal Septum, Posterior Pharynx Clear, Conjunctiva Clear, EOMI, EACs Clear, TMs Clear Neck: Supple, Trachea Midline. No: JVD Lungs: Clear to Auscultation, Normal Respiratory Effort Cardiovascular: Regular Rate, Regular Rhythm GI/Abdominal Exam: Normal Bowel Sounds, Soft, Non-Tender, No Organomegaly, No Distention, No Abnormal Bruit, No Mass, Pelvis Stable (Female) Exam: Deferred Rectal (Female) Exam: Deferred Back Exam: Normal Inspection, Full Range of Motion Extremities: No Pedal Edema, Normal Capillary Refill, Leg Pain (right knee ), Limited Range of Motion, Other (RAKESH bandage in place on right knee. Bandage is dry and intact. Cooling pack in place ) Peripheral Pulses: 3+: Radial (L), Radial (R), Posterior Tibial (L), Posterior Tibial (R), Dorsalis Pedis (L), Dorsalis Pedis (R) Skin: Warm, Dry, Intact Neurological: Cranial Nerves Intact (grossly ) Neuro Extensive - Mental Status: Alert, Oriented x3, Normal Mood/Affect, Normal Cognition, Memory Intact Psychiatric: Alert, Normal Affect, Normal Mood Consult PN Assessment/Plan POD#: 0 Procedures: Procedures ASSAY OF NATRIURETIC PEPTIDE (12/02/16) ASSAY OF PREALBUMIN (08/11/17) ASSAY THYROID STIM HORMONE (04/09/17) BLOOD CULTURE FOR BACTERIA (09/11/14) C-REACTIVE PROTEIN (01/29/16) CHEST X-RAY 1 VIEW FRONTAL (12/02/16) CHEST X-RAY 2VW FRONTAL&LATL (11/01/16) COMP SCREEN MAMMOGRAM ADD-ON (04/17/16) COMPLETE CBC AUTOMATED (04/09/17) COMPLETE CBC W/AUTO DIFF WBC (08/11/17) COMPREHEN METABOLIC PANEL (08/11/17) DXA BONE DENSITY AXIAL (04/18/17) ELECTROCARDIOGRAM TRACING (08/11/17) EMERGENCY DEPT VISIT (12/02/16) EMERGENCY DEPT VISIT (09/11/14) EXTRACRANIAL BILAT STUDY (04/17/16) GAIT TRAINING THERAPY (11/11/16) HEMOGLOBIN (12/03/16) HYDRATE IV INFUSION ADD-ON (09/11/14) HYDRATION IV INFUSION INIT (12/02/16) LIPID PANEL (04/09/17) MASSAGE THERAPY (12/11/16) MEASURE BLOOD OXYGEN LEVEL (11/11/16) MICROBE SUSCEPTIBLE ILDA (01/29/16) MR-STAPH DNA AMP PROBE (11/11/16) OFFICE/OUTPATIENT VISIT EST (08/11/17) OT EVAL LOW COMPLEX 30 MIN (11/11/16) PROTHROMBIN TIME (08/11/17) PT EVAL LOW COMPLEX 20 MIN (11/11/16) PT EVAL MOD COMPLEX 30 MIN (12/11/16) REMOVE IMPACTED EAR WAX UNI (01/29/16) ROUTINE VENIPUNCTURE (08/11/17) SELF CARE MNGMENT TRAINING (11/11/16) THER/PROPH/DIAG INJ SC/IM (04/02/16) THER/PROPH/DIAG IV INF INIT (09/11/14) THERAPEUTIC EXERCISES (12/11/16) THROMBOPLASTIN TIME PARTIAL (08/11/17) TX/PRO/DX INJ NEW DRUG ADDON (09/11/14) URINALYSIS AUTO W/SCOPE (05/13/17) URINE BACTERIA CULTURE (01/29/16) URINE CULTURE/COLONY COUNT (01/29/16) VITAMIN D 25 HYDROXY (11/01/16) X-RAY EXAM CHEST 2 VIEWS (08/11/17) X-RAY EXAM OF KNEE 1 OR 2 (11/11/16) X-RAY EXAM OF KNEE 3 (10/02/16) (1) S/P total knee arthroplasty SNOMED Code(s): 6929999776328, 8717776962495 Code(s): Z96.659 - PRESENCE OF UNSPECIFIED ARTIFICIAL KNEE JOINT Priority: High Current Visit: No Qualifiers: Laterality: right Qualified Code(s): Z96.651 - Presence of right artificial knee joint (2) Osteoarthritis SNOMED Code(s): 261560677 Code(s): M19.90 - UNSPECIFIED OSTEOARTHRITIS, UNSPECIFIED SITE Priority: High Current Visit: No Qualifiers: Osteoarthritis location: knee Osteoarthritis type: primary Laterality: right Qualified Code(s): M17.11 - Unilateral primary osteoarthritis, right knee (3) GERD (gastroesophageal reflux disease) SNOMED Code(s): 886543189 Code(s): K21.9 - GASTRO-ESOPHAGEAL REFLUX DISEASE WITHOUT ESOPHAGITIS Priority: Low Current Visit: No Qualifiers: Esophagitis presence: esophagitis presence not specified Qualified Code(s) : K21.9 - Gastro-esophageal reflux disease without esophagitis (4) HLD (hyperlipidemia) SNOMED Code(s): 58655660 Code(s): E78.5 - HYPERLIPIDEMIA, UNSPECIFIED Priority: Low Current Visit : No Qualifiers: Hyperlipidemia type: unspecified Qualified Code(s): E78.5 - Hyperlipidemia , unspecified (5) Osteoporosis SNOMED Code(s): 75137315 Code(s): M81.0 - AGE-RELATED OSTEOPOROSIS W/O CURRENT PATHOLOGICAL FRACTURE Priority: Low Current Visit: No Problem List Initiated/Reviewed/Updated: Yes Plan: I/P: Acute: S/P right total knee arthroplasty - post-operative day 0 -DVT prophylaxis and pain management per primary care team -PT/OT -IS/RT -Monitor oxygen saturation -Titrate oxygen as needed -Vital signs stable -Monitor labs -Pre-operative Hgb was 11.5, eGFR>60 Osteoarthritis of right knee -Pain management per primary care team Chronic: Impaired vision Heart murmur HLD - home meds GERD - pepcid Hx/o GI bleed Recurrent UTIs Osteoporosis mild scoliosis Plan: CM for discharge planning GI prophylaxis Home medications as indicated Other orders as listed above Routine AM labs She is a full code. Her PCP is Nidia Guevara. Thank you for allowing us to participate in the care of this patient!! Total time spent with patient 30 minutes Requesting Provider: Dr. Levy Date Consult Requested: 09/01/17 Reason for Consult: Post-operative medical management Time Spent (in minutes): 30
[2017-09-01] MEDS: Ketorolac 15 MG/ML SDV IVPUSH PRN (20:38)
[2017-09-01] MEDS: Docusate Sodium 100 MG Cap PO SCH (20:38)
[2017-09-01] MEDS: Famotidine 20 MG Tab PO SCH (20:38)
[2017-09-02] MEDS: Acetaminophen/oxyCODONE 325-5 MG Tab PO PRN ×2 (01:58→13:12)
[2017-09-02] MEDS: Ketorolac 15 MG/ML SDV IVPUSH PRN (06:27)
[2017-09-02] MEDS: ceFAZolin 2 GM in Premix Bag 1 BAG IV SCH (06:27)
--- NOTE | 2017-09-02 07:16 | PCM.CONSN ---
- General Info Date of Service: 09/02/17 Admission Dx/Problem (Free Text): Admission Diagnosis/Problem Admission Diagnosis/Problem Osteoarthritis of knee Doing well. Pain controlled. No further nausea. Ambulating/voiding. Hgb 9.0 this am. Functional Status: Reports: Pain Controlled, Tolerating Diet, Ambulating, Urinating, Incentive Spirometry. Denies: New Symptoms - Review of Systems General: Reports: No Symptoms HEENT: Reports: No Symptoms Pulmonary: Reports: No Symptoms Cardiovascular: Reports: No Symptoms Gastrointestinal: Reports: No Symptoms. Denies: Nausea, Vomiting Genitourinary: Reports: No Symptoms Musculoskeletal: Reports: Leg Pain Skin: Reports: No Symptoms Neurological: Reports: No Symptoms Psychiatric: Reports: No Symptoms - Patient Data Vitals - Most Recent: Last Vital Signs Temp 98.1 F 09/02/17 04:00 Pulse 76 09/02/17 04:00 Resp 18 09/02/17 06:00 BP 126/61 09/02/17 04:00 Pulse Ox 100 09/02/17 04:00 Weight - Most Recent: 186 lb 11.2 oz I&O - Last 24 Hours: Intake & Output 09/01/17 09/02/17 09/02/17 22:59 06:59 14:59 Intake Total 500 500 Output Total 175 150 Balance 325 350 Lab Results Last 24 Hours: Laboratory Results - last 24 hr 09/02/17 Range/Units 05:55 WBC 4.57 (3.98-10.04) K/mm3 RBC 3.45 L (3.98-5.22) M/mm3 Hgb 9.0 L (11.2-15.7) gm/L Hct 29.1 L (34.1-44.9) % MCV 84.3 (79.4-94.8) fl MCH 26.1 (25.6-32.2) pg MCHC 30.9 L (32.2-35.5) g/dl RDW Std Deviation 58.4 H (36.4-46.3) fL Plt Count 216 (182-369) K/mm3 MPV 10.9 (9.4-12.3) fl Neut % (Auto) 69.6 (34.0-71.1) % Lymph % (Auto) 12.5 L (19.3-51.7) % [place] % (Auto) 14.7 H (4.7-12.5) % Eos % (Auto) 2.8 (0.7-5.8) Baso % (Auto) 0.4 (0.1-1.2) % Neut # (Auto) 3.18 (1.56-6.13) K/mm3 Lymph # (Auto) 0.57 L (1.18-3.74) K/mm3 [place] # (Auto) 0.67 H (0.24-0.36) K/mm3 Eos # (Auto) 0.13 (0.04-0.36) K/mm3 Baso # (Auto) 0.02 (0.01-0.08) K/mm3 Med Orders - Current: Current Medications Al Hydroxide/Mg Hydroxide (Mag-Al Plus) 30 ml PO Q4H PRN PRN Reason: Heartburn Last Admin: 09/01/17 14:43 Dose: 30 ml Bisacodyl (Dulcolax) 5 mg PO DAILY PRN PRN Reason: Constipation Calcium Carbonate/Glycine (Tums) 1,500 mg PO DAILY [facility] Cholecalciferol (Vitamin D3) 1,000 units PO DAILY [facility] Docusate Sodium (Colace) 100 mg PO BID [facility] Last Admin: 09/01/17 20:38 Dose: 100 mg Famotidine (Pepcid) 20 mg PO BID [facility] Last Admin: 09/01/17 20:38 Dose: 20 mg Cefazolin Sodium/Dextrose 2 gm (/ Premix) 50 mls @ 100 mls/hr IV Q8H [facility] Stop: 09/02/17 07:29 Last Admin: 09/02/17 06:27 Dose: 100 mls/hr Magnesium Hydroxide (Milk Of Magnesia) 30 ml PO BID PRN PRN Reason: Constipation Morphine Sulfate (Morphine) 2 mg IVPUSH Q2H PRN PRN Reason: Breakthrough Pain Naloxone HCl (Narcan) 0.1 mg IVPUSH Q5M PRN PRN Reason: Oversedation Ondansetron HCl (Zofran) 4 mg IVPUSH Q6H PRN PRN Reason: Nausea/Vomiting Last Admin: 09/01/17 17:44 Dose: 4 mg Oxycodone/Acetaminophen (Percocet 325-5 Mg) 1 - 2 tab PO Q4H PRN PRN Reason: Pain Last Admin: 09/02/17 01:58 Dose: 1 tab Rivaroxaban (Xarelto) 10 mg PO DAILY [facility] Senna (Senna) 8.6 mg PO BID PRN PRN Reason: Constipation Discontinued Medications Bupivacaine HCl (Marcaine 0.25%) Confirm Administered Dose 30 ml .ROUTE .STK- MED ONE Stop: 09/01/17 06:29 Last Admin: 09/01/17 08:43 Dose: 30 ml Cefazolin Sodium (Ancef) Confirm Administered Dose 2 gm .ROUTE .STK-MED ONE Stop: 09/01/17 06:22 Last Admin: 09/01/17 08:39 Dose: 2 gm Cefazolin Sodium (Ancef) Confirm Administered Dose 2 gm .ROUTE .STK-MED ONE Stop: 09/01/17 06:29 Morphine Sulfate 8 mg/Epinephrine HCl 0.3 mg/Cefuroxime Sodium 750 mg/Ketorolac Tromethamine 30 mg/Sodium Chloride 27.9 ml 0 mg .XX ONETIME ONE Stop: 09/01/17 07:31 Last Admin: 09/01/17 08:42 Dose: 788.3 mg Diphenhydramine HCl (Benadryl) 25 mg IVPUSH Q6H PRN PRN Reason: pruritis Stop: 09/01/17 10:00 Ephedrine Sulfate (Ephedrine Sulfate) Confirm Administered Dose 50 mg .ROUTE .STK-MED ONE Stop: 09/01/17 07:38 Fentanyl (Sublimaze) Confirm Administered Dose 100 mcg .ROUTE .STK-MED ONE Stop: 09/01/17 06:21 Fentanyl (Sublimaze) 50 mcg IVPUSH Q5M PRN PRN Reason: Pain Stop: 09/01/17 10:00 Lactated Ringer's (Ringers, Lactated) 1,000 mls @ 125 mls/hr IV ASDIRECTED TWYLA Stop: 09/01/17 23:00 Last Admin: 09/01/17 06:50 Dose: 125 mls/hr Lidocaine HCl (Xylocaine-Mpf 1%) Confirm Administered Dose 4 mls @ as directed .ROUTE .STK-MED ONE Stop: 09/01/17 06:21 Lactated Ringer's (Ringers, Lactated) Confirm Administered Dose 1,000 mls @ as directed .ROUTE .STK-MED ONE Stop: 09/01/17 07:40 Lactated Ringer's (Ringers, Lactated) Confirm Administered Dose 1,000 mls @ as directed .ROUTE .STK-MED ONE Stop: 09/01/17 09:15 Iodine (Iodine 2% Mild Tincture) Confirm Administered Dose 30 ml .ROUTE .STK- MED ONE Stop: 09/01/17 06:29 Last Admin: 09/01/17 08:37 Dose: 18 ml Ketorolac Tromethamine (Toradol) 15 mg IVPUSH Q6H PRN PRN Reason: Pain Last Admin: 09/02/17 06:27 Dose: 15 mg Lidocaine/Sodium Bicarbonate (Buffered Lidocaine 1% In Ns 8.4%) 0.25 ml IDERM ONETIME PRN PRN Reason: Prior to IV Start Stop: 09/01/17 18:00 Last Admin: 09/01/17 06:49 Dose: 0.25 ml Morphine Sulfate (Duramorph Pf) Confirm Administered Dose 1 mg .ROUTE .STK-MED ONE Stop: 09/01/17 06:09 Morphine Sulfate (Morphine) 2 mg IVPUSH Q2H PRN PRN Reason: Breakthrough Pain Ondansetron HCl (Zofran) 4 mg IVPUSH ONETIME PRN PRN Reason: Nausea/Vomiting Stop: 09/01/17 10:00 Phenylephrine HCl (Phenylephrine In Ns 100 Mcg/Ml) Confirm Administered Dose 1 mg .ROUTE .STK-MED ONE Stop: 09/01/17 07:48 Propofol (Diprivan 20 Ml) Confirm Administered Dose 400 mg .ROUTE .STK-MED ONE Stop: 09/01/17 06:21 Propofol (Diprivan 20 Ml) Confirm Administered Dose 200 mg .ROUTE .STK-MED ONE Stop: 09/01/17 08:46 Sodium Chloride (Saline Flush) 10 ml FLUSH ASDIRECTED PRN PRN Reason: Keep Vein Open Stop: 09/01/17 18:00 Tranexamic Acid (Cyklokapron) Confirm Administered Dose 1,000 mg .ROUTE .STK- MED ONE Stop: 09/01/17 06:29 Last Admin: 09/01/17 08:49 Dose: 1,000 mg Vancomycin HCl (Vancomycin) Confirm Administered Dose 1 gm .ROUTE .STK-MED ONE Stop: 09/01/17 06:29 Last Admin: 09/01/17 08:45 Dose: 1 gm - Exam Quality Assessment: Supplemental Oxygen (100% on 2L/NC this am- will wean), DVT Prophylaxis General: Alert, Oriented, Cooperative, No Acute Distress HEENT: Pupils Equal, EOMI, Mucous Membr. Moist/[place] Neck: Supple Lungs: Clear to Auscultation, Normal Respiratory Effort Cardiovascular: Regular Rate, Regular Rhythm, Murmurs (grade 1-2 systolic) GI/Abdominal Exam: Normal Bowel Sounds, Soft, Non-Tender (Female) Exam: Deferred Extremities: No Pedal Edema, Normal Capillary Refill, Other (teds, SCD's and ice to rt knee) Peripheral Pulses: 2+: Dorsalis Pedis (L), Dorsalis Pedis (R) Neurological: No New Focal Deficit Psy/Mental Status: Alert, Normal Affect, Normal Mood Consult PN Assessment/Plan POD#: 1 Procedures: Procedures ASSAY OF NATRIURETIC PEPTIDE (12/02/16) ASSAY OF PREALBUMIN (08/11/17) ASSAY THYROID STIM HORMONE (04/09/17) BLOOD CULTURE FOR BACTERIA (09/11/14) C-REACTIVE PROTEIN (01/29/16) CHEST X-RAY 1 VIEW FRONTAL (12/02/16) CHEST X-RAY 2VW FRONTAL&LATL (11/01/16) COMP SCREEN MAMMOGRAM ADD-ON (04/17/16) COMPLETE CBC AUTOMATED (04/09/17) COMPLETE CBC W/AUTO DIFF WBC (08/11/17) COMPREHEN METABOLIC PANEL (08/11/17) DXA BONE DENSITY AXIAL (04/18/17) ELECTROCARDIOGRAM TRACING (08/11/17) EMERGENCY DEPT VISIT (12/02/16) EMERGENCY DEPT VISIT (09/11/14) EXTRACRANIAL BILAT STUDY (04/17/16) GAIT TRAINING THERAPY (11/11/16) HEMOGLOBIN (12/03/16) HYDRATE IV INFUSION ADD-ON (09/11/14) HYDRATION IV INFUSION INIT (12/02/16) LIPID PANEL (04/09/17) MASSAGE THERAPY (12/11/16) MEASURE BLOOD OXYGEN LEVEL (11/11/16) MICROBE SUSCEPTIBLE ILDA (01/29/16) MR-STAPH DNA AMP PROBE (11/11/16) OFFICE/OUTPATIENT VISIT EST (08/11/17) OT EVAL LOW COMPLEX 30 MIN (11/11/16) PROTHROMBIN TIME (08/11/17) PT EVAL LOW COMPLEX 20 MIN (11/11/16) PT EVAL MOD COMPLEX 30 MIN (12/11/16) REMOVE IMPACTED EAR WAX UNI (01/29/16) ROUTINE VENIPUNCTURE (08/11/17) SELF CARE MNGMENT TRAINING (11/11/16) THER/PROPH/DIAG INJ SC/IM (04/02/16) THER/PROPH/DIAG IV INF INIT (09/11/14) THERAPEUTIC EXERCISES (12/11/16) THROMBOPLASTIN TIME PARTIAL (08/11/17) TX/PRO/DX INJ NEW DRUG ADDON (09/11/14) URINALYSIS AUTO W/SCOPE (05/13/17) URINE BACTERIA CULTURE (01/29/16) URINE CULTURE/COLONY COUNT (01/29/16) VITAMIN D 25 HYDROXY (11/01/16) X-RAY EXAM CHEST 2 VIEWS (08/11/17) X-RAY EXAM OF KNEE 1 OR 2 (11/11/16) X-RAY EXAM OF KNEE 3 (10/02/16) (1) S/P total knee arthroplasty SNOMED Code(s): 1409654234087, 1528912856388 Code(s): Z96.659 - PRESENCE OF UNSPECIFIED ARTIFICIAL KNEE JOINT Priority: High Current Visit: Yes Qualifiers: Laterality: right Qualified Code(s): Z96.651 - Presence of right artificial knee joint (2) Osteoarthritis SNOMED Code(s): 922443624 Code(s): M19.90 - UNSPECIFIED OSTEOARTHRITIS, UNSPECIFIED SITE Priority: High Current Visit: Yes Qualifiers: Osteoarthritis location: knee Osteoarthritis type: primary Laterality: right Qualified Code(s): M17.11 - Unilateral primary osteoarthritis, right knee (3) CKD (chronic kidney disease) SNOMED Code(s): 279457021 Code(s): N18.9 - CHRONIC KIDNEY DISEASE, UNSPECIFIED Priority: Medium Current Visit: No (4) GI bleed SNOMED Code(s): 72740877 Code(s): K92.2 - GASTROINTESTINAL HEMORRHAGE, UNSPECIFIED Priority: Medium Current Visit: No Qualifiers: Gastritis type: unspecified gastritis (5) Elevated LFTs SNOMED Code(s): 112543595 Code(s): R79.89 - OTHER SPECIFIED ABNORMAL FINDINGS OF BLOOD CHEMISTRY Current Visit: Yes Problem List Initiated/Reviewed/Updated: Yes Plan: I/P: Acute: S/P right total knee arthroplasty - post-operative day 1, Dr. Levy -DVT prophylaxis and pain management per primary care team -PT/OT -IS/RT -Vital signs stable -Monitor labs -Pre-operative Hgb was 11.5, eGFR>60, hgb today 9.0 Osteoarthritis of right knee -Pain management per primary care team Elevated LFT's postoperatively -Likely related to anesthesia -Recommend follow up with PCP for recheck LFT's in one week Chronic: Impaired vision Heart murmur HLD - home meds GERD - pepcid Hx/o GI bleed Recurrent UTIs Osteoporosis mild scoliosis Plan: CM for discharge planning---doing well. OK from Hospitalist standpoint for DC home today. GI prophylaxis Home medications as indicated Other orders as listed above Routine AM labs She is a full code. Her PCP is Nidia Guevara PA-C with [facility].
--- NOTE | 2017-09-02 08:52 | PCM.SURGPN ---
- General Info Date of Service: 09/02/17 POD#: 1 Functional Status: Reports: Pain Controlled, Tolerating Diet, Ambulating, Urinating, Incentive Spirometry - Review of Systems Musculoskeletal: Reports: Other (The pt feels prepared for discharge to home.) - Patient Data Vitals - Most Recent: Last Vital Signs Temp 98.8 F 09/02/17 07:40 Pulse 73 09/02/17 07:40 Resp 20 09/02/17 07:40 BP 108/47 L 09/02/17 07:40 Pulse Ox 99 09/02/17 07:40 Weight - Most Recent: 186 lb 11.2 oz I&O - Last 24 Hours: Intake & Output 09/01/17 09/02/17 09/02/17 22:59 06:59 14:59 Intake Total 500 500 Output Total 175 150 Balance 325 350 Lab Results Last 24 Hrs: Laboratory Results - last 24 hr 09/02/17 09/02/17 Range/Units 05:55 05:55 WBC 4.57 (3.98-10.04) K/mm3 RBC 3.45 L (3.98-5.22) M/mm3 Hgb 9.0 L (11.2-15.7) gm/L Hct 29.1 L (34.1-44.9) % MCV 84.3 (79.4-94.8) fl MCH 26.1 (25.6-32.2) pg MCHC 30.9 L (32.2-35.5) g/dl RDW Std Deviation 58.4 H (36.4-46.3) fL Plt Count 216 (182-369) K/mm3 MPV 10.9 (9.4-12.3) fl Neut % (Auto) 69.6 (34.0-71.1) % Lymph % (Auto) 12.5 L (19.3-51.7) % Garland % (Auto) 14.7 H (4.7-12.5) % Eos % (Auto) 2.8 (0.7-5.8) Baso % (Auto) 0.4 (0.1-1.2) % Neut # (Auto) 3.18 (1.56-6.13) K/mm3 Lymph # (Auto) 0.57 L (1.18-3.74) K/mm3 [place] # (Auto) 0.67 H (0.24-0.36) K/mm3 Eos # (Auto) 0.13 (0.04-0.36) K/mm3 Baso # (Auto) 0.02 (0.01-0.08) K/mm3 Sodium 139 (136-145) mEq/L Potassium 4.1 (3.5-5.1) mEq/L Chloride 104 (98-107) mEq/L Carbon Dioxide 26 (21-32) mEq/L Anion Gap 13.1 (5-15) BUN 16 (7-18) mg/dL Creatinine 0.7 (0.55-1.02) mg/dL Est Cr Clr Drug Dosing 44.51 mL/min Estimated GFR (MDRD) > 60 (>60) mL/min BUN/Creatinine Ratio 22.9 H (14-18) Glucose 115 (83-115) mg/dL Calcium 7.9 L (8.5-10.1) mg/dL Total Bilirubin 1.0 (0.2-1.0) mg/dL AST 245 H (15-37) U/L ALT 184 H (14-59) U/L Alkaline Phosphatase 181 H (46-116) U/L Total Protein 5.6 L (6.4-8.2) g/dl Albumin 2.7 L (3.4-5.0) g/dl Globulin 2.9 gm/dL Albumin/Globulin Ratio 0.9 L (1-2) Med Orders - Current: Current Medications Al Hydroxide/Mg Hydroxide (Mag-Al Plus) 30 ml PO Q4H PRN PRN Reason: Heartburn Last Admin: 09/01/17 14:43 Dose: 30 ml Bisacodyl (Dulcolax) 5 mg PO DAILY PRN PRN Reason: Constipation Calcium Carbonate/Glycine (Tums) 1,500 mg PO DAILY [facility] Cholecalciferol (Vitamin D3) 1,000 units PO DAILY [facility] Docusate Sodium (Colace) 100 mg PO BID [facility] Last Admin: 09/01/17 20:38 Dose: 100 mg Famotidine (Pepcid) 20 mg PO BID [facility] Last Admin: 09/01/17 20:38 Dose: 20 mg Magnesium Hydroxide (Milk Of Magnesia) 30 ml PO BID PRN PRN Reason: Constipation Morphine Sulfate (Morphine) 2 mg IVPUSH Q2H PRN PRN Reason: Breakthrough Pain Naloxone HCl (Narcan) 0.1 mg IVPUSH Q5M PRN PRN Reason: Oversedation Ondansetron HCl (Zofran) 4 mg IVPUSH Q6H PRN PRN Reason: Nausea/Vomiting Last Admin: 09/01/17 17:44 Dose: 4 mg Oxycodone/Acetaminophen (Percocet 325-5 Mg) 1 - 2 tab PO Q4H PRN PRN Reason: Pain Last Admin: 09/02/17 01:58 Dose: 1 tab Rivaroxaban (Xarelto) 10 mg PO DAILY [facility] Senna (Senna) 8.6 mg PO BID PRN PRN Reason: Constipation Discontinued Medications Bupivacaine HCl (Marcaine 0.25%) Confirm Administered Dose 30 ml .ROUTE .STK- MED ONE Stop: 09/01/17 06:29 Last Admin: 09/01/17 08:43 Dose: 30 ml Cefazolin Sodium (Ancef) Confirm Administered Dose 2 gm .ROUTE .STK-MED ONE Stop: 09/01/17 06:22 Last Admin: 09/01/17 08:39 Dose: 2 gm Cefazolin Sodium (Ancef) Confirm Administered Dose 2 gm .ROUTE .STK-MED ONE Stop: 09/01/17 06:29 Morphine Sulfate 8 mg/Epinephrine HCl 0.3 mg/Cefuroxime Sodium 750 mg/Ketorolac Tromethamine 30 mg/Sodium Chloride 27.9 ml 0 mg .XX ONETIME ONE Stop: 09/01/17 07:31 Last Admin: 09/01/17 08:42 Dose: 788.3 mg Diphenhydramine HCl (Benadryl) 25 mg IVPUSH Q6H PRN PRN Reason: pruritis Stop: 09/01/17 10:00 Ephedrine Sulfate (Ephedrine Sulfate) Confirm Administered Dose 50 mg .ROUTE .STK-MED ONE Stop: 09/01/17 07:38 Fentanyl (Sublimaze) Confirm Administered Dose 100 mcg .ROUTE .STK-MED ONE Stop: 09/01/17 06:21 Fentanyl (Sublimaze) 50 mcg IVPUSH Q5M PRN PRN Reason: Pain Stop: 09/01/17 10:00 Lactated Ringer's (Ringers, Lactated) 1,000 mls @ 125 mls/hr IV ASDIRECTED [facility] Stop: 09/01/17 23:00 Last Admin: 09/01/17 06:50 Dose: 125 mls/hr Lidocaine HCl (Xylocaine-Mpf 1%) Confirm Administered Dose 4 mls @ as directed .ROUTE .STK-MED ONE Stop: 09/01/17 06:21 Cefazolin Sodium/Dextrose 2 gm (/ Premix) 50 mls @ 100 mls/hr IV Q8H [facility] Stop: 09/02/17 07:29 Last Admin: 09/02/17 06:27 Dose: 100 mls/hr Lactated Ringer's (Ringers, Lactated) Confirm Administered Dose 1,000 mls @ as directed .ROUTE .STK-MED ONE Stop: 09/01/17 07:40 Lactated Ringer's (Ringers, Lactated) Confirm Administered Dose 1,000 mls @ as directed .ROUTE .STK-MED ONE Stop: 09/01/17 09:15 Iodine (Iodine 2% Mild Tincture) Confirm Administered Dose 30 ml .ROUTE .STK- MED ONE Stop: 09/01/17 06:29 Last Admin: 09/01/17 08:37 Dose: 18 ml Ketorolac Tromethamine (Toradol) 15 mg IVPUSH Q6H PRN PRN Reason: Pain Last Admin: 09/02/17 06:27 Dose: 15 mg Lidocaine/Sodium Bicarbonate (Buffered Lidocaine 1% In Ns 8.4%) 0.25 ml IDERM ONETIME PRN PRN Reason: Prior to IV Start Stop: 09/01/17 18:00 Last Admin: 09/01/17 06:49 Dose: 0.25 ml Morphine Sulfate (Duramorph Pf) Confirm Administered Dose 1 mg .ROUTE .STK-MED ONE Stop: 09/01/17 06:09 Morphine Sulfate (Morphine) 2 mg IVPUSH Q2H PRN PRN Reason: Breakthrough Pain Ondansetron HCl (Zofran) 4 mg IVPUSH ONETIME PRN PRN Reason: Nausea/Vomiting Stop: 09/01/17 10:00 Phenylephrine HCl (Phenylephrine In Ns 100 Mcg/Ml) Confirm Administered Dose 1 mg .ROUTE .STK-MED ONE Stop: 09/01/17 07:48 Propofol (Diprivan 20 Ml) Confirm Administered Dose 400 mg .ROUTE .STK-MED ONE Stop: 09/01/17 06:21 Propofol (Diprivan 20 Ml) Confirm Administered Dose 200 mg .ROUTE .STK-MED ONE Stop: 09/01/17 08:46 Sodium Chloride (Saline Flush) 10 ml FLUSH ASDIRECTED PRN PRN Reason: Keep Vein Open Stop: 09/01/17 18:00 Tranexamic Acid (Cyklokapron) Confirm Administered Dose 1,000 mg .ROUTE .STK- MED ONE Stop: 09/01/17 06:29 Last Admin: 09/01/17 08:49 Dose: 1,000 mg Vancomycin HCl (Vancomycin) Confirm Administered Dose 1 gm .ROUTE .STK-MED ONE Stop: 09/01/17 06:29 Last Admin: 09/01/17 08:45 Dose: 1 gm - Exam Wound/Incisions: Dressing Dry and Intact General: Alert, Cooperative, No Acute Distress Lungs: Normal Respiratory Effort Extremities: Other (NVS intact. Jailene's negative for RLE.) - Problem List Review Problem List Initiated/Reviewed/Updated: Yes - My Orders Last 24 Hours: Active Orders 24 hr Category Date Time Status Oxygen Therapy Adult [Oxygen Therapy] [RC] ASDIRECTED Care 09/01/17 22:38 Active Regular Diet [DIET] Diet 09/01/17 Lunch Active Alum Hydrox/Mag Hydrox/Simeth [Mag-Al Plus] Med 09/01/17 14:21 Active 30 ml PO Q4H PRN Calcium Carbonate [Tums] Med 09/02/17 09:00 Active 1,500 mg PO DAILY Cholecalciferol (Vitamin D3) [Vitamin D3] Med 09/02/17 09:00 Active 1,000 units PO DAILY Denosumab [Prolia] Med 09/01/17 12:00 Unverified DOSE UNIT RTE FREQ Docusate Sodium [Colace] Med 09/01/17 21:00 Active 100 mg PO BID Famotidine [Pepcid] Med 09/01/17 21:00 Active 20 mg PO BID Morphine Med 09/01/17 07:57 Active 2 mg IVPUSH Q2H PRN Rivaroxaban [Xarelto] Med 09/02/17 09:00 Active 10 mg PO DAILY Medication Orders Al Hydroxide/Mg Hydroxide (Mag-Al Plus) 30 ml PO Q4H PRN PRN Reason: Heartburn Last Admin: 09/01/17 14:43 Dose: 30 ml Bisacodyl (Dulcolax) 5 mg PO DAILY PRN PRN Reason: Constipation Calcium Carbonate/Glycine (Tums) 1,500 mg PO DAILY [facility] Cholecalciferol (Vitamin D3) 1,000 units PO DAILY [facility] Docusate Sodium (Colace) 100 mg PO BID [facility] Last Admin: 09/01/17 20:38 Dose: 100 mg Famotidine (Pepcid) 20 mg PO BID [facility] Last Admin: 09/01/17 20:38 Dose: 20 mg Magnesium Hydroxide (Milk Of Magnesia) 30 ml PO BID PRN PRN Reason: Constipation Morphine Sulfate (Morphine) 2 mg IVPUSH Q2H PRN PRN Reason: Breakthrough Pain Naloxone HCl (Narcan) 0.1 mg IVPUSH Q5M PRN PRN Reason: Oversedation Ondansetron HCl (Zofran) 4 mg IVPUSH Q6H PRN PRN Reason: Nausea/Vomiting Last Admin: 09/01/17 17:44 Dose: 4 mg Oxycodone/Acetaminophen (Percocet 325-5 Mg) 1 - 2 tab PO Q4H PRN PRN Reason: Pain Last Admin: 09/02/17 01:58 Dose: 1 tab Admin: 09/01/17 13:12 Dose: 2 tab Rivaroxaban (Xarelto) 10 mg PO DAILY [facility] Senna (Senna) 8.6 mg PO BID PRN PRN Reason: Constipation - Assessment Assessment (Free Text/Narrative):: POD#1 - right TKA - Plan Plan (Free Text/Narrative):: 1. Hgb 9.0. 2. Xarelto 10mg PO daily. Frequent mobility, TEDs. 3. Discharge to home today. The pt will have the assistance of her daughter. The pt's case was discussed with Dr. Levy.
[2017-09-02] MEDS ORDERED: Calcium Carbonate 500 MG Tab.Chew PO SCH (09:00)
[2017-09-02] MEDS ORDERED: Cholecalciferol (Vitamin D3) 1,000 Unit Tab PO SCH (09:00)
[2017-09-02] MEDS ORDERED: Rivaroxaban 10 MG Tab PO SCH (09:00)
[2017-09-02] MEDS: Docusate Sodium 100 MG Cap PO SCH (09:41)
[2017-09-02] MEDS: Famotidine 20 MG Tab PO SCH (09:41)
[2017-09-02 12:23] VITALS: BP 122/53
--- NOTE | 2017-09-07 21:33 | PCM.OPNOTE ---
- General Post-Op/Procedure Note Date of Surgery/Procedure: 09/01/17 Operative Procedure(s): right total knee arthroplasty Pre Op Diagnosis: right knee osteoarthrosis Post-Op Diagnosis: Same Anesthesia Technique: Local, MAC, Spinal Primary Surgeon: Geo Levy Anesthesia Provider: Mavis Galicia Health Worker: Bridgette Lee Health Worker: Ana Laura Carbajal EBRober in mLs: 300 Complications: None Condition: Good
--- NOTE | 2017-09-07 22:33 | OR ---
DATE OF OPERATION: 09/01/2017 SURGEON: Geo Levy MD OPERATION PERFORMED: Right total knee arthroplasty. PREOPERATIVE DIAGNOSIS: Right knee osteoarthrosis. POSTOPERATIVE DIAGNOSIS: Right knee osteoarthrosis. ANESTHESIA: Local MAC with spinal. ANESTHESIA PROVIDER: Mavis Galicia CRNA. ASSISTANTS: Bridgette Lee PA-C and Ana Laura Carbajal LPN. ESTIMATED BLOOD LOSS: 300 mL. COMPLICATIONS: None. CONDITION: Stable. IMPLANTS: 1. [place] size 4 PS femur. 2. [place] size 4 universal tibial base plate. 3. Harmeet size 4, 9 mm PS X3 polyethylene. 4. [place] size 29 x 9 mm asymmetric patella. DESCRIPTION OF PROCEDURE: The patient was identified in the preop holding area. Proper site was marked and identified by the surgeon. The patient was taken back to the operating theater. After adequate anesthesia, the patient's right lower extremity had a nonsterile tourniquet applied and it was then sterilely prepped and draped in the usual sterile fashion. OR timeout was performed. The patient received 2 g IV Ancef. At this time, right lower extremity was exsanguinated. Tourniquet was insufflated to 300 mmHg. Standard medial parapatellar incision was made. Medial parapatellar arthrotomy was created. Deep fibers of the MCL were raised and anterior fat pad was resected. At this time, attention was turned to the patella. Patella measured 20, it was resected to a 13 for 29 x 9 mm patella. Drill holes were then drilled and found to be in adequate position. The drill was then drilled in the distal femur and the intramedullary distal femoral cutting guide was then placed. 10 mm was resected off the distal femur and was found to be an adequate resection. Sizing guide was placed. It was found to be a size 4 PS femur that was shown on the implant record at the beginning of this dictation. The drill holes were drilled for the epicondylar axis using [place] line and epicondyles as reference. At this time, the 4-in-1 cutting block was placed. An anterior posterior and anterior and posterior chamfer cuts were then completed. The correct size box cut was then placed and the box cut was completed and found to be an adequate resection. Attention was turned to the tibia. The posterior medial lateral retractors were placed. The extramedullary tibial guide was placed. It was placed in the old footprint of the ACL. It was aligned with the center of the ankle and 0 degrees of slope, 9 mm was then resected off the unaffected lateral side. There was found to be an acceptable reduction. At this time, posterior osteophytes were removed along with medial and lateral meniscus. A trial implant was placed with a correct sized tibia that was mentioned at the beginning of the dictation. A Harmeet size 4, 9 mm PS X3 polyethylene was then placed. The patient's knee was brought through range of motion. The patella was tracking centrally and was stable to varus and valgus stress. Alignment was found to be roughly at 0 degrees. At this time, cement was mixed on the back table. The tibia was stamped and drilled in proper rotation. All cut surfaces were irrigated with pulse lavage irrigation with Ancef and then completely dried. Once this was completed, then the cement was ready. The universal tibial base plate was cemented in place. Next, the [place] size 4 PS femur cemented into place and the [place] size 4, 9 mm PS X3 polyethylene was placed. The patient's knee was brought into full extension. Excess cement was removed. The patella was then cemented in place at this time. Tourniquet was deflated. One liter dilute Betadine solution was irrigated through the knee along with 3 L of pulse lavage irrigation with Ancef. Periarticular injection was then completed. The patient's knee was brought through a range of motion. Once the cement had time to set up and it was found to be stable to varus valgus stress, the patella was tracking centrally with full range of motion. At this time, a #2 barbed suture was used for closure of the medial parapatellar arthrotomy. Topical tranexamic acid was placed. 2-0 Vicryl was used subcutaneously, a running 3-0 Monocryl was used subcuticularly. The patient tolerated the procedure well and was sent to the PACU in stable condition. MMODAL /[id number]
== END 2017-09-02 14:55 | disposition home or self-care (01) ==
LOC: JD.SDS 06:31 → JD.MS 06:35 → EDSTATUS 07:30 → JD.SDS 09-02 14:55
PROVIDERS: ATTEND Orthopaedic Surgery
DX: M17.11 Unilateral primary osteoarthritis, right knee (principal); K21.9 Gastro-esophageal reflux disease without esophagitis; E78.2 Mixed hyperlipidemia; Z79.899 Other long term (current) drug therapy
CPT/HCPCS: 27447; 36415; 73560; 80053; 85025; 87641; 94762; 97110; 97116; 97162; 97165; 97535; A9270; C1713; C1776; J0171; J0690; J0697; J1885; J2270; J2274; J2405; J3010; J3370; J3490; J7120; J2704

== ENCOUNTER 2018-10-16 19:56 | Observation (INO) | payer MEDICARE, BC ==
--- NOTE | 2018-10-16 21:07 | EDM.PDOC ---
ED HPI GENERAL MEDICAL PROBLEM - General Chief Complaint: Abdominal Pain Stated Complaint: BLEEDING FROM RECTUM Time Seen by Provider: 10/16/18 20:21 Source of Information: Reports: Patient, RN Notes Reviewed History Limitations: Reports: No Limitations - History of Present Illness INITIAL COMMENTS - FREE TEXT/NARRATIVE: Patient is an 83-year-old female who presents to the ED today for bleeding per rectum. She states that this morning she had some blood after small bowel movement, however this evening while she was sitting in the chair she felt the urge to go to the bathroom and she stood up and had a gush of blood. She states that there is blood all over her house, and that she was all bloody. She has not having any abdominal pain nor any rectal pain at this time. She has had similar episodes of this in the past, they did not find anything wrong at this time. Her last episode was around 1 year ago and she states that she was in the [facility] for this. She states that the blood is a dark red color in nature. She denies any further denies any history of stomach ulcers, or complaints of dizziness, lightheadedness. She states her primary care provider is Nidia Guevara. She denies any use of blood thinners at this time. - Related Data Allergies Allergy/AdvReac Type Severity Reaction Status Date / Time No Known Allergies Allergy Verified 10/16/18 22:40 Home Meds: Home Meds Omeprazole 20 mg PO DAILY #14 cap.cr 12/02/16 [Rx] Calcium Carb & Citrate/Vit D3 [Citracal + D ER] 2 tab PO DAILY 10/16/18 [History ] Cholecalciferol (Vitamin D3) [Vitamin D3] 1,000 unit PO DAILY 10/16/18 [History] Past Medical History HEENT History: Reports: Impaired Vision Other HEENT History: excessive cerumen, glasses, dentures Cardiovascular History: Reports: Heart Murmur, High Cholesterol Respiratory History: Reports: None Gastrointestinal History: Reports: GI Bleed, Hiatal Hernia Other Gastrointestinal History: abdominal pain Genitourinary History: Reports: Pyelonephritis Other Genitourinary History: UTI [employer] FINISHING History: Reports: None Musculoskeletal History: Reports: Other (See Below) Other Musculoskeletal History: L knee pain, L knee OA, mild scoliosis Neurological History: Reports: Other (See Below) Other Neuro History: dizziness Psychiatric History: Reports: None Endocrine/Metabolic History: Reports: None Hematologic History: Reports: None Immunologic History: Reports: None Oncologic (Cancer) History: Reports: None Dermatologic History: Reports: None - Past Surgical History Head Surgeries/Procedures: Reports: None Cardiovascular Surgical History: Reports: None Respiratory Surgical History: Reports: None Endocrine Surgical History: Reports: None Neurological Surgical History: Reports: None Oncologic Surgical History: Reports: None Dermatological Surgical History: Reports: None Social & Family History - Family History Cardiac: Reports: CAD - Tobacco Use Smoking Status *Q: Never Smoker - Caffeine Use Caffeine Use: Reports: Coffee, Tea - Recreational Drug Use Recreational Drug Use: No ED ROS GENERAL - Review of Systems Review Of Systems: See Below Constitutional: Denies: Fever, Chills HEENT: Reports: No Symptoms Respiratory: Reports: No Symptoms Cardiovascular: Reports: No Symptoms Endocrine: Reports: No Symptoms GI/Abdominal: Reports: Bloody Stool (dark maroon stool). Denies: Abdominal Pain , Constipation, Diarrhea, Nausea, Vomiting : Reports: No Symptoms Musculoskeletal: Reports: No Symptoms Skin: Reports: No Symptoms Neurological: Denies: Dizziness, Headache, Syncope Psychiatric: Reports: No Symptoms Hematologic/Lymphatic: Denies: Anemia, Easy Bleeding, Easy Bruising Immunologic: Reports: No Symptoms ED EXAM, GI/ABD - Physical Exam Exam: See Below Exam Limited By: No Limitations General Appearance: Alert, WD/WN, No Apparent Distress Eyes: Bilateral: Normal Appearance Nose: Normal Inspection Throat/Mouth: Normal Inspection, Normal Lips, Normal Teeth, Normal Gums, Normal Oropharynx, Normal Voice, No Airway Compromise Head: Atraumatic, Normocephalic Respiratory/Chest: No Respiratory Distress, Lungs Clear, Normal Breath Sounds, No Accessory Muscle Use, Chest Non-Tender Cardiovascular: Normal Peripheral Pulses, Regular Rate, Rhythm, No Murmur GI/Abdominal Exam: Normal Bowel Sounds, Soft, Non-Tender, No Distention, No Mass Rectal (Female) Exam: Normal Exam, Normal Rectal Tone, Bloody Stool (maroon colored stool noted on digital rectal exam), Heme + Stool, Hemorrhoids (1 external hemorrhoid noted) Extremities: Normal Inspection, Normal Range of Motion, Non-Tender, No Pedal Edema, Normal Capillary Refill Neurological: Alert, Oriented, Normal Cognition, Normal Gait, No Motor/Sensory Deficits Psychiatric: Normal Affect, Normal Mood Skin Exam: Warm, Dry, Intact, Normal Color, No Rash Course - Vital Signs Last Recorded V/S: Last Vital Signs Temp 99.0 F 10/16/18 20:19 Pulse 98 10/16/18 20:19 Resp 20 10/16/18 20: BP 146/78 H 10/16/18 20:19 Pulse Ox 94 L 10/16/18 20:19 Orthostatic Blood Pressure [ 134/91 Standing] Orthostatic Blood Pressure [ 135/75 Sitting] Orthostatic Blood Pressure [ 159/82 Supine] - Orders/Labs/Meds Orders: Active Orders 24 hr Category Date Time Status Admission Status [Patient Status] [ADT] Routine ADT 10/16/18 22:42 Ordered Orthostatic Vital Signs [RC] ASDIRECTED Care 10/16/18 21:18 Active Peripheral IV Care [RC] . DIRECTED Care 10/16/18 22:18 Active Sodium Chloride 0.9% [Normal Saline] 1,000 ml Med 10/16/18 22:19 Stop Req IV ASDIRECTED Sodium Chloride 0.9% [Saline Flush] Med 10/16/18 22:18 Active 10 ml FLUSH ASDIRECTED PRN Peripheral IV Insertion Adult [OM.PC] Routine Oth 10/16/18 22:18 Ordered Medication Orders Sodium Chloride (Saline Flush) 10 ml FLUSH ASDIRECTED PRN PRN Reason: Keep Vein Open Labs: Laboratory Tests 10/16/18 10/16/18 10/16/18 Range/Units 21:00 21:00 21:00 WBC 4.57 (3.98-10.04) K/mm3 RBC 3.83 L (3.98-5.22) M/mm3 Hgb 10.8 L (11.2-15.7) gm/L Hct 34.0 L (34.1-44.9) % MCV 88.8 (79.4-94.8) fl MCH 28.2 (25.6-32.2) pg MCHC 31.8 L (32.2-35.5) g/dl RDW Std Deviation 52.8 H (36.4-46.3) fL Plt Count 223 (182-369) K/mm3 MPV 10.3 (9.4-12.3) fl Neutrophils % (Manual) 58 (40-60) % Band Neutrophils % 0 (0-10) % Lymphocytes % (Manual) 34 (20-40) % Atypical Lymphs % 0 % Monocytes % (Manual) 7 (2-10) % Eosinophils % (Manual) 1 (0.7-5.8) % Basophils % (Manual) 0 L (0.1-1.2) Platelet Estimate Adequate Anisocytosis 1+ slight Macrocytosis 1+ slight RBC Morph Comment Not Reportable PT 11.0 (9.5-12.1) SECONDS INR 1.01 APTT 28 (24-31) SECONDS Sodium 140 (136-145) mEq/L Potassium 3.9 (3.5-5.1) mEq/L Chloride 106 (98-107) mEq/L Carbon Dioxide 25 (21-32) mEq/L Anion Gap 12.9 (5-15) BUN 11 (7-18) mg/dL Creatinine 0.8 (0.55-1.02) mg/dL Est Cr Clr Drug Dosing 42.14 mL/min Estimated GFR (MDRD) > 60 (>60) mL/min BUN/Creatinine Ratio 13.8 L (14-18) Glucose 135 H (83-115) mg/dL Calcium 8.4 L (8.5-10.1) mg/dL Total Bilirubin 0.4 (0.2-1.0) mg/dL AST 17 (15-37) U/L ALT 19 (14-59) U/L Alkaline Phosphatase 80 (46-116) U/L Total Protein 5.9 L (6.4-8.2) g/dl Albumin 3.0 L (3.4-5.0) g/dl Globulin 2.9 gm/dL Albumin/Globulin Ratio 1.0 (1-2) Blood Type Gel Antibody Screen 10/16/18 Range/Units 21:00 WBC (3.98-10.04) K/mm3 RBC (3.98-5.22) M/mm3 Hgb (11.2-15.7) gm/L Hct (34.1-44.9) % MCV (79.4-94.8) fl MCH (25.6-32.2) pg MCHC (32.2-35.5) g/dl RDW Std Deviation (36.4-46.3) fL Plt Count (182-369) K/mm3 MPV (9.4-12.3) fl Neutrophils % (Manual) (40-60) % Band Neutrophils % (0-10) % Lymphocytes % (Manual) (20-40) % Atypical Lymphs % % Monocytes % (Manual) (2-10) % Eosinophils % (Manual) (0.7-5.8) % Basophils % (Manual) (0.1-1.2) Platelet Estimate Anisocytosis Macrocytosis RBC Morph Comment PT (9.5-12.1) SECONDS INR APTT (24-31) SECONDS Sodium (136-145) mEq/L Potassium (3.5-5.1) mEq/L Chloride (98-107) mEq/L Carbon Dioxide (21-32) mEq/L Anion Gap (5-15) BUN (7-18) mg/dL Creatinine (0.55-1.02) mg/dL Est Cr Clr Drug Dosing mL/min Estimated GFR (MDRD) (>60) mL/min BUN/Creatinine Ratio (14-18) Glucose (83-115) mg/dL Calcium (8.5-10.1) mg/dL Total Bilirubin (0.2-1.0) mg/dL AST (15-37) U/L ALT (14-59) U/L Alkaline Phosphatase (46-116) U/L Total Protein (6.4-8.2) g/dl Albumin (3.4-5.0) g/dl Globulin gm/dL Albumin/Globulin Ratio (1-2) Blood Type O POSITIVE Gel Antibody Screen Negative Meds: Medications Generic Name Dose Route Start Last Admin Trade Name Freq PRN Reason Stop Dose Admin Sodium Chloride 10 ml 10/16/18 22:18 Saline Flush FLUSH ASDIRECTED PRN Keep Vein Open Discontinued Medications Generic Name Dose Route Start Last Admin Trade Name Freq PRN Reason Stop Dose Admin Sodium Chloride 1,000 mls @ 150 mls/hr 10/16/18 22:19 10/16/18 22:40 Normal Saline IV 10/17/18 04:58 Not Given ASDIRECTED ONE Pantoprazole Sodium 40 mg 10/16/18 22:19 10/16/18 22:39 Protonix Iv IVPUSH 10/16/18 22:20 40 mg ONETIME ONE Administration - Re-Assessments/Exams Free Text/Narrative Re-Assessment/Exam: 10/16/18 21:09 Patient presents to the ED for the evaluation of blood in her stool. I did order CBC, CMP, PT, PTT, INR, and a type and screen of her blood. She is grossly positive for blood in her stool as per her digital rectal exam. This did provide a finger full of maroon-colored stool. I will have the nurses do orthostatic blood pressures to see if she has volume compromise, she may need to stay in the hospital for further evaluation of what is causing her GI bleed. 10/16/18 22:44 Patient's hemoglobin was 10.8 and she is O+. The patient states she is feeling okay upon reexamination however I have advised her it might be to her benefit to stay in the hospital observation overnight to make sure her hemoglobin does not drop any further. She is amenable to this, I did call Dr. Richardson and he agrees to admit the patient for observation. He does not want any IV fluids to be given to the patient. I did order 40 mg IV Protonix as well. Dr. Richardson states that he will likely do a repeat hemoglobin in the morning and discharge her home if it does not drop. Departure - Departure Time of Disposition: 22:46 Disposition: DC/Tfer to [facility] Condition: Fair Clinical Impression: GI bleed Qualifiers: GI bleed type/associated pathology: unspecified gastrointestinal hemorrhage type Qualified Code(s): K92.2 - Gastrointestinal hemorrhage, unspecified - Discharge Information Referrals: Nidia Guevara PA-C [Primary Care Provider] - Forms: ED Department Discharge - My Orders Last 24 Hours: My Active Orders 10/16/18 21:18 Orthostatic Vital Signs [RC] ASDIRECTED 10/16/18 22:18 Peripheral IV Care [RC] . DIRECTED Sodium Chloride 0.9% [Saline Flush] 10 ml FLUSH ASDIRECTED PRN Peripheral IV Insertion Adult [OM.PC] Routine 10/16/18 22:19 Sodium Chloride 0.9% [Normal Saline] 1,000 ml IV ASDIRECTED 10/16/18 22:42 Admission Status [Patient Status] [ADT] Routine - Assessment/Plan Last 24 Hours: My Active Orders 10/16/18 21:18 Orthostatic Vital Signs [RC] ASDIRECTED 10/16/18 22:18 Peripheral IV Care [RC] . DIRECTED Sodium Chloride 0.9% [Saline Flush] 10 ml FLUSH ASDIRECTED PRN Peripheral IV Insertion Adult [OM.PC] Routine 10/16/18 22:19 Sodium Chloride 0.9% [Normal Saline] 1,000 ml IV ASDIRECTED 10/16/18 22:42 Admission Status [Patient Status] [ADT] Routine
[2018-10-16] MEDS ORDERED: Sodium Chloride 0.9% 10 ML Syringe FLUSH PRN (22:18)
[2018-10-16] MEDS ORDERED: Sodium Chloride 0.9% 1,000 ML IV ONE ×2 (22:19→22:58)
[2018-10-16] MEDS ORDERED: Pantoprazole 40 MG Vial IVPUSH ONE (22:19)
[2018-10-16] MEDS ORDERED: Metoprolol Tartrate 5 MG/5 ML SDV IVPUSH PRN (22:49)
[2018-10-16] MEDS ORDERED: hydrALAZINE 20 MG/ML SDV IVPUSH PRN (22:49)
[2018-10-16] MEDS ORDERED: Albuterol/Ipratropium 3.0-0.5 MG/3 ML Neb Soln NEB PRN (22:50)
[2018-10-16] MEDS ORDERED: Acetaminophen/HYDROcodone 325-5 MG Tab PO PRN (22:50)
[2018-10-16] MEDS ORDERED: Temazepam 7.5 MG Cap PO PRN (22:50)
[2018-10-16] MEDS ORDERED: HYDROmorphone 1 MG/ML Syringe IVPUSH PRN (22:50)
[2018-10-16] MEDS ORDERED: Promethazine 6.25 MG in Sodium Chloride 0.9% 50 ML IV PRN (22:50)
[2018-10-16] MEDS ORDERED: Ondansetron 4 MG/2 ML SDV IV PRN (22:50)
[2018-10-16] MEDS ORDERED: Acetaminophen 325 MG Tab PO PRN (22:50)
[2018-10-17] MEDS ORDERED: Sodium Chloride 0.9% 10 ML Syringe FLUSH SCH (06:00)
[2018-10-17] MEDS: Pantoprazole 40 MG Tab.CR PO SCH (06:06)
--- NOTE | 2018-10-17 08:05 | PCM.HP ---
H&P History of Present Illness - General Date of Service: 10/17/18 Admit Problem/Dx: Admission Diagnosis/Problem Admission Diagnosis/Problem GI bleed not requiring more than 4 units of blood in 24 hours, ICU, or surgery Source of Information: Patient, Old Records, Provider, RN Notes Reviewed History Limitations: Reports: No Limitations - History of Present Illness Initial Comments - Free Text/Narative: This is an 83 yo elderly white female with past medical hx/o Impaired Vision, GERD, HLD, Hiatal Hernia S/p Reduction, Hx/o GI Bleed, Hx/o Pyelonephritis, Mild Scoliosis, Osteoporosis, Heart Murmur, and Hx/o Right TKA who comes in for evaluation of a one time episode of bloody diarrhea that started yesterday morning after having a bowel movement. She states there was blood all over the house and that she was all bloody. She denies any abdominal complaints. No fever or chills. Patient reports of a similar episode about 3 years ago when she was visiting her son in [facility] [place]. She underwent for a lower endoscopy but was told everything was benign. She was not sure if they found pockets in her colon. However she tells me, she has had history of hemorrhoids but denies having constipation. Since coming to ED and on to the [facility] floor, patient has not had any rectal bleeding episode. Her initial work up in ED shows a CBC remarkable for RBC of 3.83, hemoglobin of 10.8, hematocrit of 34, MCHC of 31.8, and RDW of 52.8. Her chemistry is significant for glucose of 135, calcium of 8.4, and albumin of 3. Patient was admitted last night under observation for acute rectal bleed. She is full code. - Related Data Allergies/Adverse Reactions: Allergies Allergy/AdvReac Type Severity Reaction Status Date / Time No Known Allergies Allergy Verified 10/16/18 23:45 Home Medications: Home Meds Omeprazole 20 mg PO DAILY #14 cap.cr 12/02/16 [Rx] Calcium Carb & Citrate/Vit D3 [Citracal + D ER] 2 tab PO DAILY 10/16/18 [History ] Cholecalciferol (Vitamin D3) [Vitamin D3] 1,000 unit PO DAILY 10/16/18 [History] Past Medical History HEENT History: Reports: Impaired Vision Other HEENT History: excessive cerumen, glasses, dentures Cardiovascular History: Reports: Heart Murmur, High Cholesterol Respiratory History: Reports: None Gastrointestinal History: Reports: GI Bleed, Hiatal Hernia Other Gastrointestinal History: abdominal pain Genitourinary History: Reports: Pyelonephritis Other Genitourinary History: UTI [employer] History: Reports: Musculoskeletal History: Reports: Other (See Below) Other Musculoskeletal History: L knee pain, L knee OA, mild scoliosis Neurological History: Reports: Other (See Below) Other Neuro History: dizziness Psychiatric History: Reports: None Endocrine/Metabolic History: Reports: Obesity/BMI 30+ Hematologic History: Reports: None Immunologic History: Reports: None Oncologic (Cancer) History: Reports: None Dermatologic History: Reports: None - Infectious Disease History Infectious Disease History: Reports: Other (See Below) Other Infectious Disease History: pt reports that she doesnt remember if she hsd any of these - Past Surgical History Head Surgeries/Procedures: Reports: None HEENT Surgical History: Reports: None Cardiovascular Surgical History: Reports: None Respiratory Surgical History: Reports: None GI Surgical History: Reports: None Female Surgical History: Reports: None Endocrine Surgical History: Reports: None Neurological Surgical History: Reports: None Musculoskeletal Surgical History: Reports: None Oncologic Surgical History: Reports: None Dermatological Surgical History: Reports: None Social & Family History - Family History Family Medical History: Noncontributory HEENT: Reports: None Cardiac: Reports: CAD - Tobacco Use Smoking Status *Q: Never Smoker Second Hand Smoke Exposure: No - Caffeine Use Caffeine Use: Reports: Coffee Other Caffeine Use: 2 cups of coffee per day - Recreational Drug Use Recreational Drug Use: No H&P Review of Systems - Review of Systems: Review Of Systems: See Below General: Denies: Fever, Chills, Malaise, Weakness, Fatigue HEENT: Reports: No Symptoms Pulmonary: Denies: Shortness of Breath Cardiovascular: Denies: Chest Pain, Palpitations, Dyspnea on Exertion, Lightheadedness, Syncope, Claudication, Blood Pressure Problem, Other Gastrointestinal: Reports: Bloody Stool, Flatus, Hematochezia. Denies: Abdominal Pain, Constipation, Decreased Appetite, Nausea, Stool Incontinence, Vomiting Genitourinary: Reports: Frequency Musculoskeletal: Reports: No Symptoms Skin: Denies: Cyanosis, Mottled, Diaphoresis, Bruising, Erythema Psychiatric: Denies: Depression, Anxiety, Agitation Neurological: Denies: Headache, Seizure, Syncope, Difficulty Walking, Gait Disturbance Hematologic/Lymphatic: Denies: Anemia, Easy Bleeding, Easy Bruising, Swollen Glands Immunologic: Denies: No Symptoms Exam - Exam Exam: See Below - Vital Signs Vital Signs: Last Vital Signs Temp 36.6 C 10/17/18 04:50 Pulse 78 10/17/18 04:50 Resp 12 10/17/18 04:50 BP 108/67 10/17/18 04:50 Pulse Ox 94 L 10/17/18 04:50 Orthostatic Blood Pressure [ 134/91 Standing] Orthostatic Blood Pressure [ 135/75 Sitting] Orthostatic Blood Pressure [ 159/82 Supine] Weight: 84.323 kg - Exam General: Alert, Oriented, Cooperative HEENT: Conjunctiva Clear, EACs Clear, EOMI, Hearing Intact, Mucosa Moist & Darling , Nares Patent, Normal Nasal Septum, Posterior Pharynx Clear, Pupils Equal, Pupils Reactive, TMs Clear Neck: Supple, Trachea Midline Lungs: Clear to Auscultation, Normal Respiratory Effort Cardiovascular: Regular Rate, Regular Rhythm GI/Abdominal Exam: Normal Bowel Sounds, Soft, Non-Tender, No Organomegaly, No Distention, No Abnormal Bruit (Female) Exam: Deferred Rectal (Female) Exam: Normal Exam, Normal Rectal Tone. No: Black Stool, Hemorrhoids, Mass, Perirectal Abscess, Rectal Fissure, Tenderness Back Exam: Normal Inspection, Decreased Range of Motion, Other (mild scoliosis ) Extremities: Normal Inspection, Normal Range of Motion, Non-Tender, No Pedal Edema, Normal Capillary Refill, Other (scar on right knee) Peripheral Pulses: 2+: Posterior Tibial (L), Posterior Tibial (R), Dorsalis Pedis (L), Dorsalis Pedis (R) Skin: Warm, Dry, Intact Neuro Extensive - Mental Status: Oriented x3, Normal Cognition, Memory Intact Neuro Extensive - Motor, Sensory, Reflexes: CN II-XII Intact, Abnormal Gait Psychiatric: Alert, Normal Affect, Normal Mood - Patient Data Lab Results Last 24 hrs: Laboratory Results - last 24 hr 10/16/18 10/16/18 10/16/18 Range/Units 21:00 21:00 21:00 WBC 4.57 (3.98-10.04) K/mm3 RBC 3.83 L (3.98-5.22) M/mm3 Hgb 10.8 L (11.2-15.7) gm/L Hct 34.0 L (34.1-44.9) % MCV 88.8 (79.4-94.8) fl MCH 28.2 (25.6-32.2) pg MCHC 31.8 L (32.2-35.5) g/dl RDW Std Deviation 52.8 H (36.4-46.3) fL Plt Count 223 (182-369) K/mm3 MPV 10.3 (9.4-12.3) fl Neut % (Auto) (34.0-71.1) % Lymph % (Auto) (19.3-51.7) % Wilson % (Auto) (4.7-12.5) % Eos % (Auto) (0.7-5.8) Baso % (Auto) (0.1-1.2) % Neut # (Auto) (1.56-6.13) K/mm3 Lymph # (Auto) (1.18-3.74) K/mm3 Wilson # (Auto) (0.24-0.36) K/mm3 Eos # (Auto) (0.04-0.36) K/mm3 Baso # (Auto) (0.01-0.08) K/mm3 Neutrophils % (Manual) 58 (40-60) % Band Neutrophils % 0 (0-10) % Lymphocytes % (Manual) 34 (20-40) % Atypical Lymphs % 0 % Monocytes % (Manual) 7 (2-10) % Eosinophils % (Manual) 1 (0.7-5.8) % Basophils % (Manual) 0 L (0.1-1.2) Manual Slide Review Platelet Estimate Adequate Anisocytosis 1+ slight Macrocytosis 1+ slight RBC Morph Comment Not Reportable PT 11.0 (9.5-12.1) SECONDS INR 1.01 APTT 28 (24-31) SECONDS Sodium 140 (136-145) mEq/L Potassium 3.9 (3.5-5.1) mEq/L Chloride 106 (98-107) mEq/L Carbon Dioxide 25 (21-32) mEq/L Anion Gap 12.9 (5-15) BUN 11 (7-18) mg/dL Creatinine 0.8 (0.55-1.02) mg/dL Est Cr Clr Drug Dosing 42.14 mL/min Estimated GFR (MDRD) > 60 (>60) mL/min BUN/Creatinine Ratio 13.8 L (14-18) Glucose 135 H (83-115) mg/dL Calcium 8.4 L (8.5-10.1) mg/dL Magnesium (1.8-2.4) mg/dl Iron (50-170) ug/dL TIBC (100-400) ug/dL % Saturation (20-55) % Transferrin (202-364) mg/dL Total Bilirubin 0.4 (0.2-1.0) mg/dL AST 17 (15-37) U/L ALT 19 (14-59) U/L Alkaline Phosphatase 80 (46-116) U/L Total Protein 5.9 L (6.4-8.2) g/dl Albumin 3.0 L (3.4-5.0) g/dl Globulin 2.9 gm/dL Albumin/Globulin Ratio 1.0 (1-2) Blood Type Gel Antibody Screen 10/16/18 10/17/18 10/17/18 Range/Units 21:00 06:05 06:05 WBC 3.70 L (3.98-10.04) K/mm3 RBC 3.54 L (3.98-5.22) M/mm3 Hgb 9.9 L (11.2-15.7) gm/L Hct 31.6 L (34.1-44.9) % MCV 89.3 (79.4-94.8) fl MCH 28.0 (25.6-32.2) pg MCHC 31.3 L (32.2-35.5) g/dl RDW Std Deviation 52.6 H (36.4-46.3) fL Plt Count 229 (182-369) K/mm3 MPV 10.4 (9.4-12.3) fl Neut % (Auto) 45.1 (34.0-71.1) % Lymph % (Auto) 33.0 (19.3-51.7) % Wilson % (Auto) 17.3 H (4.7-12.5) % Eos % (Auto) 3.5 (0.7-5.8) Baso % (Auto) 1.1 (0.1-1.2) % Neut # (Auto) 1.67 (1.56-6.13) K/mm3 Lymph # (Auto) 1.22 (1.18-3.74) K/mm3 Wilson # (Auto) 0.64 H (0.24-0.36) K/mm3 Eos # (Auto) 0.13 (0.04-0.36) K/mm3 Baso # (Auto) 0.04 (0.01-0.08) K/mm3 Neutrophils % (Manual) (40-60) % Band Neutrophils % (0-10) % Lymphocytes % (Manual) (20-40) % Atypical Lymphs % % Monocytes % (Manual) (2-10) % Eosinophils % (Manual) (0.7-5.8) % Basophils % (Manual) (0.1-1.2) Manual Slide Review Normal smear Platelet Estimate Anisocytosis Macrocytosis RBC Morph Comment PT (9.5-12.1) SECONDS INR APTT (24-31) SECONDS Sodium 142 (136-145) mEq/L Potassium 3.9 (3.5-5.1) mEq/L Chloride 108 H (98-107) mEq/L Carbon Dioxide 25 (21-32) mEq/L Anion Gap 12.9 (5-15) BUN 11 (7-18) mg/dL Creatinine 0.7 (0.55-1.02) mg/dL Est Cr Clr Drug Dosing 48.16 mL/min Estimated GFR (MDRD) > 60 (>60) mL/min BUN/Creatinine Ratio 15.7 (14-18) Glucose 111 (83-115) mg/dL Calcium 8.2 L (8.5-10.1) mg/dL Magnesium 1.9 (1.8-2.4) mg/dl Iron (50-170) ug/dL TIBC (100-400) ug/dL % Saturation (20-55) % Transferrin (202-364) mg/dL Total Bilirubin (0.2-1.0) mg/dL AST (15-37) U/L ALT (14-59) U/L Alkaline Phosphatase (46-116) U/L Total Protein (6.4-8.2) g/dl Albumin (3.4-5.0) g/dl Globulin gm/dL Albumin/Globulin Ratio (1-2) Blood Type O POSITIVE Gel Antibody Screen Negative 10/17/18 Range/Units 06:05 WBC (3.98-10.04) K/mm3 RBC (3.98-5.22) M/mm3 Hgb (11.2-15.7) gm/L Hct (34.1-44.9) % MCV (79.4-94.8) fl MCH (25.6-32.2) pg MCHC (32.2-35.5) g/dl RDW Std Deviation (36.4-46.3) fL Plt Count (182-369) K/mm3 MPV (9.4-12.3) fl Neut % (Auto) (34.0-71.1) % Lymph % (Auto) (19.3-51.7) % Wilson % (Auto) (4.7-12.5) % Eos % (Auto) (0.7-5.8) Baso % (Auto) (0.1-1.2) % Neut # (Auto) (1.56-6.13) K/mm3 Lymph # (Auto) (1.18-3.74) K/mm3 Wilson # (Auto) (0.24-0.36) K/mm3 Eos # (Auto) (0.04-0.36) K/mm3 Baso # (Auto) (0.01-0.08) K/mm3 Neutrophils % (Manual) (40-60) % Band Neutrophils % (0-10) % Lymphocytes % (Manual) (20-40) % Atypical Lymphs % % Monocytes % (Manual) (2-10) % Eosinophils % (Manual) (0.7-5.8) % Basophils % (Manual) (0.1-1.2) Manual Slide Review Platelet Estimate Anisocytosis Macrocytosis RBC Morph Comment PT (9.5-12.1) SECONDS INR APTT (24-31) SECONDS Sodium (136-145) mEq/L Potassium (3.5-5.1) mEq/L Chloride (98-107) mEq/L Carbon Dioxide (21-32) mEq/L Anion Gap (5-15) BUN (7-18) mg/dL Creatinine (0.55-1.02) mg/dL Est Cr Clr Drug Dosing mL/min Estimated GFR (MDRD) (>60) mL/min BUN/Creatinine Ratio (14-18) Glucose (83-115) mg/dL Calcium (8.5-10.1) mg/dL Magnesium (1.8-2.4) mg/dl Iron 25 L (50-170) ug/dL TIBC 289 (100-400) ug/dL % Saturation 9 L (20-55) % Transferrin 231 (202-364) mg/dL Total Bilirubin (0.2-1.0) mg/dL AST (15-37) U/L ALT (14-59) U/L Alkaline Phosphatase (46-116) U/L Total Protein (6.4-8.2) g/dl Albumin (3.4-5.0) g/dl Globulin gm/dL Albumin/Globulin Ratio (1-2) Blood Type Gel Antibody Screen Result Diagrams: 10/17/18 06:05 10/17/18 06:05 Problem List Initiated/Reviewed/Updated: Yes Orders Last 24hrs: Active Orders 24 hr Category Date Time Status Patient Status [ADT] Routine ADT 10/17/18 01:39 Active Antiembolic Devices [RC] Care 10/16/18 22:53 Active Cardiac Monitoring [RC] CONTINUOUS Care 10/16/18 22:50 Active Height and Weight [RC] 04 Care 10/16/18 22:50 Active Intake and Output [RC] 16, Care 10/16/18 22:50 Active Notify Provider Consults [RC] 0800 Care 10/16/18 22:55 Active Oxygen Therapy [RC] PRN Care 10/16/18 22:50 Active RT Aerosol Therapy [RC] ASDIRECTED Care 10/16/18 22:53 Active VTE/DVT Education [RC] Care 10/16/18 22:50 Active Vital Signs [RC] Q4HR Care 10/16/18 22:50 Active Consult to Case Management/Ore Trimmer [CONS] Cons 10/16/18 22:50 Active Routine Consult to Physician [CONS] Routine Cons 10/16/18 22:50 Active Nothing per Oral After Midnight Diet [DIET] Diet 10/16/18 Dinner Active Acetaminophen [Tylenol] Med 10/16/18 22:50 Active 650 mg PO Q4H PRN Acetaminophen/HYDROcodone [[place] 325-5 MG] Med 10/16/18 22:50 Active 1 tab PO Q4H PRN Albuterol/Ipratropium [DuoNeb 3.0-0.5 MG/3 ML] Med 10/16/18 22:50 Active 3 ml NEB Q4H PRN Famotidine [Pepcid] Med 10/17/18 09:00 Active 20 mg IVPUSH DAILY HYDROmorphone [Dilaudid] Med 10/16/18 22:50 Active 0.25 mg IVPUSH Q2H PRN Metoprolol Tartrate [Lopressor] Med 10/16/18 22:49 Active 5 mg IVPUSH Q4H PRN Ondansetron [Zofran] Med 10/16/18 22:50 Active 4 mg IV Q6H PRN Pantoprazole [ProTONIX] Med 10/17/18 07:00 Active 40 mg PO DAILY@0700 Pharmacy to Dose - Magnesium R [Pharmacy to Dose - Med 10/16/18 23:00 Pending Magnesium Replacement] 1 dose .XX ASDIRECTED Pharmacy to Dose - Potassium R [Pharmacy to Dose - Med 10/16/18 23:00 Pending Potassium Replacement] 1 dose .XX ASDIRECTED Promethazine [Phenergan] 6.25 mg Med 10/16/18 22:50 Active Sodium Chloride 0.9% [Normal Saline] 50 ml IV Q6H Sodium Chloride 0.9% [Saline Flush] Med 10/16/18 22:18 Active 10 ml FLUSH ASDIRECTED PRN Sodium Chloride 0.9% [Saline Flush] Med 10/17/18 06:00 Active 10 ml FLUSH Q8HR Temazepam [Restoril] Med 10/16/18 22:50 Active 7.5 mg PO BEDTIME PRN hydrALAZINE [Apresoline] Med 10/16/18 22:49 Active 20 mg IVPUSH Q4H PRN Peripheral IV Insertion Adult [OM.PC] Routine Oth 10/16/18 22:18 Ordered Sequential Compression Device [OM.PC] Per Unit Routine Oth 10/16/18 22:51 Ordered Resuscitation Status Stat Resus Stat 10/16/18 22:57 Ordered Medication Orders Acetaminophen (Tylenol) 650 mg PO Q4H PRN PRN Reason: Pain (Mild 1-3)/fever Hydrocodone Bitart/Acetaminophen ([place] 325-5 Mg) 1 tab PO Q4H PRN PRN Reason: Pain (moderate 4-6) Albuterol/Ipratropium (Duoneb 3.0-0.5 Mg/3 Ml) 3 ml NEB Q4H PRN PRN Reason: Shortness Of Breath/wheezing Famotidine (Pepcid) 20 mg IVPUSH DAILY [facility] Stop: 10/18/18 09:01 Hydralazine HCl (Apresoline) 20 mg IVPUSH Q4H PRN PRN Reason: Hypertension Hydromorphone HCl (Dilaudid) 0.25 mg IVPUSH Q2H PRN PRN Reason: Pain (severe 7-10) Promethazine HCl 6.25 mg/ (Sodium Chloride) 50.25 mls @ 100 mls/hr IV Q6H PRN PRN Reason: Nausea/Vomiting Magnesium Sulfate (Pharmacy To Dose - Magnesium Replacement) 1 dose .XX ASDIRECTED [facility] Metoprolol Tartrate (Lopressor) 5 mg IVPUSH Q4H PRN PRN Reason: Tachycardia Ondansetron HCl (Zofran) 4 mg IV Q6H PRN PRN Reason: Nausea/Vomiting Pantoprazole Sodium (Protonix) 40 mg PO DAILY@0700 [facility] Last Admin: 10/17/18 06:06 Dose: Potassium Chloride (Pharmacy To Dose - Potassium Replacement) 1 dose .XX ASDIRECTED [facility] Sodium Chloride (Saline Flush) 10 ml FLUSH ASDIRECTED PRN PRN Reason: Keep Vein Open Last Admin: 10/16/18 22:45 Dose: 10 ml Sodium Chloride (Saline Flush) 10 ml FLUSH Q8HR [facility] Last Admin: 10/17/18 05:56 Dose: Temazepam (Restoril) 7.5 mg PO BEDTIME PRN PRN Reason: Sleep Assessment/Plan Comment:: Assessment/Plan: Acute: GI Bleed: - Carries a hx/o GI 3 years in [facility] with similar presentation - 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, Large Sigmoid Polyps S/p Resection with Unknown Results, and Internal Hemorrhoids in 07/05/2016 - Had a" gush of blood" and "blood over her house" - Hgb 10.8--> 9.8; and received no volume resuscitation - She is hemodynamically stable and euvolemic - She does not take ASA or NSAIDs on a regular basis - No anti-coagulations either for VTE/PE or Stroke prophylaxis/treatment Anemia - 2/2 GI Bleed - Carries a hx/o GI Bleed 2/2 Pancolonic Diverticulosis and Internal Hemorrhoids 07/05/2016 - Hgb 10.8 (baseline is 12 grams); now is 9.9; she did not received any fluids in ED and on the floor - NPO except for ice chips and sips of water - Monitor and will order iron panel - GS consult Chronic: Impaired Vision GERD HLD Hiatal Hernia S/p Reduction Hx/o GI Bleed Hx/o Pyelonephritis Mild Scoliosis Osteoporosis Heart Murmur Hx/o Right TKA Plan: Admitted last night to [facility] for OBS Routine AM Labs Resume Home Meds No NSAIDS and ASA Avoid Blood Thinners Obtained and reviewed chart from [facility] GI/DVT PPx: PPI and SCDs GS consult Ambulate as tolerated Code Status: 1
[2018-10-17] MEDS ORDERED: Non-Formulary Medication 1 Each (Omeprazole 20 MG) PO SCH (09:00)
[2018-10-17] MEDS ORDERED: Famotidine 20 MG/2 ML SDV IVPUSH SCH (09:00)
[2018-10-17] MEDS: Famotidine 20 MG/2 ML SDV IVPUSH SCH (09:37)
--- NOTE | 2018-10-17 10:56 | PCM.CONS ---
H&P History of Present Illness - General Date of Service: 10/17/18 Admit Problem/Dx: Admission Diagnosis/Problem Admission Diagnosis/Problem GI bleed not requiring more than 4 units of blood in 24 hours, ICU, or surgery Source of Information: Patient, Provider History Limitations: Reports: No Limitations - History of Present Illness Initial Comments - Free Text/Narative: The patient is an 83 y/o lady who presents with a GI bleed. She reports having a dark stool in the morning yesterday, followed by a bowel movement later on in the day that had a large amount of blood. She had a smear of blood on her undergarments this am. She was feeling well yesterday prior to this event. She denies any abdominal pain or diarrhea. She denies any fever. She denies any dizziness or lightheadedness. She has a history of several GI bleeds, and had a colonoscopy 2 or 3 years ago during one of the bleeds that showed diverticulosis and 3 polyps, but pathology is not known. No bleeding source was identified at the time. This is her second bleeding episode since the colonoscopy. She has never required a blood transfusion. - Related Data Allergies/Adverse Reactions: Allergies Allergy/AdvReac Type Severity Reaction Status Date / Time No Known Allergies Allergy Verified 10/16/18 23:45 Home Medications: Home Meds Omeprazole 20 mg PO DAILY #14 cap.cr 12/02/16 [Rx] Calcium Carb & Citrate/Vit D3 [Citracal + D ER] 2 tab PO DAILY 10/16/18 [History ] Cholecalciferol (Vitamin D3) [Vitamin D3] 1,000 unit PO DAILY 10/16/18 [History] Past Medical History HEENT History: Reports: Impaired Vision Other HEENT History: excessive cerumen, glasses, dentures Cardiovascular History: Reports: Heart Murmur, High Cholesterol Respiratory History: Reports: None Gastrointestinal History: Reports: GI Bleed, Hiatal Hernia Other Gastrointestinal History: abdominal pain Genitourinary History: Reports: Pyelonephritis Other Genitourinary History: UTI [employer] History: Reports: Musculoskeletal History: Reports: Other (See Below) Other Musculoskeletal History: L knee pain, L knee OA, mild scoliosis Neurological History: Reports: Other (See Below) Other Neuro History: dizziness Psychiatric History: Reports: None Endocrine/Metabolic History: Reports: Obesity/BMI 30+ Hematologic History: Reports: None Immunologic History: Reports: None Oncologic (Cancer) History: Reports: None Dermatologic History: Reports: None - Infectious Disease History Infectious Disease History: Reports: Other (See Below) Other Infectious Disease History: pt reports that she doesnt remember if she hsd any of these - Past Surgical History Head Surgeries/Procedures: Reports: None HEENT Surgical History: Reports: None Cardiovascular Surgical History: Reports: None Respiratory Surgical History: Reports: None GI Surgical History: Reports: None Female Surgical History: Reports: None Endocrine Surgical History: Reports: None Neurological Surgical History: Reports: None Musculoskeletal Surgical History: Reports: None Oncologic Surgical History: Reports: None Dermatological Surgical History: Reports: None Social & Family History - Family History HEENT: Reports: None Cardiac: Reports: CAD, Hypertension, [place] Endocrine/Metabolic: Reports: Diabetes, type II - Tobacco Use Smoking Status *Q: Never Smoker Second Hand Smoke Exposure: No - Caffeine Use Caffeine Use: Reports: Coffee Other Caffeine Use: 2 cups of coffee per day - Recreational Drug Use Recreational Drug Use: No H&P Review of Systems - Review of Systems: Review Of Systems: See Below General: Reports: No Symptoms HEENT: Reports: No Symptoms Pulmonary: Reports: No Symptoms Cardiovascular: Reports: No Symptoms Gastrointestinal: Reports: Bloody Stool. Denies: Abdominal Pain, Diarrhea Genitourinary: Reports: No Symptoms Musculoskeletal: Reports: No Symptoms Skin: Reports: No Symptoms Psychiatric: Reports: No Symptoms Neurological: Reports: No Symptoms. Denies: Dizziness Exam - Exam Exam: See Below - Vital Signs Vital Signs: Last Vital Signs Temp 36.7 C 10/17/18 09:31 Pulse 73 10/17/18 09:31 Resp 20 10/17/18 09:31 BP 107/78 10/17/18 09:31 Pulse Ox 93 L 10/17/18 09:31 Orthostatic Blood Pressure [ 134/91 Standing] Orthostatic Blood Pressure [ 135/75 Sitting] Orthostatic Blood Pressure [ 159/82 Supine] Weight: 84.323 kg - Exam Quality Assessment: No: Supplemental Oxygen General: Alert, Oriented HEENT: Conjunctiva Clear, EOMI Neck: Supple Lungs: Clear to Auscultation, Normal Respiratory Effort Cardiovascular: Regular Rate, Regular Rhythm GI/Abdominal Exam: Normal Bowel Sounds, Soft, Non-Tender, No Distention Extremities: Normal Inspection, No Pedal Edema Peripheral Pulses: 2+: Dorsalis Pedis (L), Dorsalis Pedis (R) Skin: Warm, Dry, Intact Neurological: Cranial Nerves Intact Neuro Extensive - Mental Status: Alert, Oriented x3, Normal Mood/Affect Psychiatric: Normal Affect - Patient Data Lab Results Last 24 hrs: Laboratory Results - last 24 hr 10/16/18 10/16/18 10/16/18 Range/Units 21:00 21:00 21:00 WBC 4.57 (3.98-10.04) K/mm3 RBC 3.83 L (3.98-5.22) M/mm3 Hgb 10.8 L (11.2-15.7) gm/L Hct 34.0 L (34.1-44.9) % MCV 88.8 (79.4-94.8) fl MCH 28.2 (25.6-32.2) pg MCHC 31.8 L (32.2-35.5) g/dl RDW Std Deviation 52.8 H (36.4-46.3) fL Plt Count 223 (182-369) K/mm3 MPV 10.3 (9.4-12.3) fl Neut % (Auto) (34.0-71.1) % Lymph % (Auto) (19.3-51.7) % [place] % (Auto) (4.7-12.5) % Eos % (Auto) (0.7-5.8) Baso % (Auto) (0.1-1.2) % Neut # (Auto) (1.56-6.13) K/mm3 Lymph # (Auto) (1.18-3.74) K/mm3 [place] # (Auto) (0.24-0.36) K/mm3 Eos # (Auto) (0.04-0.36) K/mm3 Baso # (Auto) (0.01-0.08) K/mm3 Neutrophils % (Manual) 58 (40-60) % Band Neutrophils % 0 (0-10) % Lymphocytes % (Manual) 34 (20-40) % Atypical Lymphs % 0 % Monocytes % (Manual) 7 (2-10) % Eosinophils % (Manual) 1 (0.7-5.8) % Basophils % (Manual) 0 L (0.1-1.2) Manual Slide Review Platelet Estimate Adequate Anisocytosis 1+ slight Macrocytosis 1+ slight RBC Morph Comment Not Reportable PT 11.0 (9.5-12.1) SECONDS INR 1.01 APTT 28 (24-31) SECONDS Sodium 140 (136-145) mEq/L Potassium 3.9 (3.5-5.1) mEq/L Chloride 106 (98-107) mEq/L Carbon Dioxide 25 (21-32) mEq/L Anion Gap 12.9 (5-15) BUN 11 (7-18) mg/dL Creatinine 0.8 (0.55-1.02) mg/dL Est Cr Clr Drug Dosing 42.14 mL/min Estimated GFR (MDRD) > 60 (>60) mL/min BUN/Creatinine Ratio 13.8 L (14-18) Glucose 135 H (83-115) mg/dL Calcium 8.4 L (8.5-10.1) mg/dL Magnesium (1.8-2.4) mg/dl Iron (50-170) ug/dL TIBC (100-400) ug/dL % Saturation (20-55) % Transferrin (202-364) mg/dL Total Bilirubin 0.4 (0.2-1.0) mg/dL AST 17 (15-37) U/L ALT 19 (14-59) U/L Alkaline Phosphatase 80 (46-116) U/L Total Protein 5.9 L (6.4-8.2) g/dl Albumin 3.0 L (3.4-5.0) g/dl Globulin 2.9 gm/dL Albumin/Globulin Ratio 1.0 (1-2) Blood Type Gel Antibody Screen 10/16/18 10/17/18 10/17/18 Range/Units 21:00 06:05 06:05 WBC 3.70 L (3.98-10.04) K/mm3 RBC 3.54 L (3.98-5.22) M/mm3 Hgb 9.9 L (11.2-15.7) gm/L Hct 31.6 L (34.1-44.9) % MCV 89.3 (79.4-94.8) fl MCH 28.0 (25.6-32.2) pg MCHC 31.3 L (32.2-35.5) g/dl RDW Std Deviation 52.6 H (36.4-46.3) fL Plt Count 229 (182-369) K/mm3 MPV 10.4 (9.4-12.3) fl Neut % (Auto) 45.1 (34.0-71.1) % Lymph % (Auto) 33.0 (19.3-51.7) % [place] % (Auto) 17.3 H (4.7-12.5) % Eos % (Auto) 3.5 (0.7-5.8) Baso % (Auto) 1.1 (0.1-1.2) % Neut # (Auto) 1.67 (1.56-6.13) K/mm3 Lymph # (Auto) 1.22 (1.18-3.74) K/mm3 [place] # (Auto) 0.64 H (0.24-0.36) K/mm3 Eos # (Auto) 0.13 (0.04-0.36) K/mm3 Baso # (Auto) 0.04 (0.01-0.08) K/mm3 Neutrophils % (Manual) (40-60) % Band Neutrophils % (0-10) % Lymphocytes % (Manual) (20-40) % Atypical Lymphs % % Monocytes % (Manual) (2-10) % Eosinophils % (Manual) (0.7-5.8) % Basophils % (Manual) (0.1-1.2) Manual Slide Review Normal smear Platelet Estimate Anisocytosis Macrocytosis RBC Morph Comment PT (9.5-12.1) SECONDS INR APTT (24-31) SECONDS Sodium 142 (136-145) mEq/L Potassium 3.9 (3.5-5.1) mEq/L Chloride 108 H (98-107) mEq/L Carbon Dioxide 25 (21-32) mEq/L Anion Gap 12.9 (5-15) BUN 11 (7-18) mg/dL Creatinine 0.7 (0.55-1.02) mg/dL Est Cr Clr Drug Dosing 48.16 mL/min Estimated GFR (MDRD) > 60 (>60) mL/min BUN/Creatinine Ratio 15.7 (14-18) Glucose 111 (83-115) mg/dL Calcium 8.2 L (8.5-10.1) mg/dL Magnesium 1.9 (1.8-2.4) mg/dl Iron (50-170) ug/dL TIBC (100-400) ug/dL % Saturation (20-55) % Transferrin (202-364) mg/dL Total Bilirubin (0.2-1.0) mg/dL AST (15-37) U/L ALT (14-59) U/L Alkaline Phosphatase (46-116) U/L Total Protein (6.4-8.2) g/dl Albumin (3.4-5.0) g/dl Globulin gm/dL Albumin/Globulin Ratio (1-2) Blood Type O POSITIVE Gel Antibody Screen Negative 10/17/18 Range/Units 06:05 WBC (3.98-10.04) K/mm3 RBC (3.98-5.22) M/mm3 Hgb (11.2-15.7) gm/L Hct (34.1-44.9) % MCV (79.4-94.8) fl MCH (25.6-32.2) pg MCHC (32.2-35.5) g/dl RDW Std Deviation (36.4-46.3) fL Plt Count (182-369) K/mm3 MPV (9.4-12.3) fl Neut % (Auto) (34.0-71.1) % Lymph % (Auto) (19.3-51.7) % [place] % (Auto) (4.7-12.5) % Eos % (Auto) (0.7-5.8) Baso % (Auto) (0.1-1.2) % Neut # (Auto) (1.56-6.13) K/mm3 Lymph # (Auto) (1.18-3.74) K/mm3 [place] # (Auto) (0.24-0.36) K/mm3 Eos # (Auto) (0.04-0.36) K/mm3 Baso # (Auto) (0.01-0.08) K/mm3 Neutrophils % (Manual) (40-60) % Band Neutrophils % (0-10) % Lymphocytes % (Manual) (20-40) % Atypical Lymphs % % Monocytes % (Manual) (2-10) % Eosinophils % (Manual) (0.7-5.8) % Basophils % (Manual) (0.1-1.2) Manual Slide Review Platelet Estimate Anisocytosis Macrocytosis RBC Morph Comment PT (9.5-12.1) SECONDS INR APTT (24-31) SECONDS Sodium (136-145) mEq/L Potassium (3.5-5.1) mEq/L Chloride (98-107) mEq/L Carbon Dioxide (21-32) mEq/L Anion Gap (5-15) BUN (7-18) mg/dL Creatinine (0.55-1.02) mg/dL Est Cr Clr Drug Dosing mL/min Estimated GFR (MDRD) (>60) mL/min BUN/Creatinine Ratio (14-18) Glucose (83-115) mg/dL Calcium (8.5-10.1) mg/dL Magnesium (1.8-2.4) mg/dl Iron 25 L (50-170) ug/dL TIBC 289 (100-400) ug/dL % Saturation 9 L (20-55) % Transferrin 231 (202-364) mg/dL Total Bilirubin (0.2-1.0) mg/dL AST (15-37) U/L ALT (14-59) U/L Alkaline Phosphatase (46-116) U/L Total Protein (6.4-8.2) g/dl Albumin (3.4-5.0) g/dl Globulin gm/dL Albumin/Globulin Ratio (1-2) Blood Type Gel Antibody Screen Result Diagrams: 10/17/18 06:05 10/17/18 06:05 Consult PN Assessment/Plan Procedures: Procedures ASSAY OF NATRIURETIC PEPTIDE (12/02/16) ASSAY OF PREALBUMIN (08/11/17) ASSAY THYROID STIM HORMONE (04/09/17) BLOOD CULTURE FOR BACTERIA (09/11/14) BREAST TOMOSYNTHESIS BI (04/28/18) C-REACTIVE PROTEIN (01/29/16) CHEST X-RAY 1 VIEW FRONTAL (12/02/16) CHEST X-RAY 2VW FRONTAL&LATL (11/01/16) COMP SCREEN MAMMOGRAM ADD-ON (04/17/16) COMPLETE CBC AUTOMATED (10/13/18) COMPLETE CBC W/AUTO DIFF WBC (04/22/18) COMPREHEN METABOLIC PANEL (10/13/18) DXA BONE DENSITY AXIAL (04/18/17) ELECTROCARDIOGRAM TRACING (08/11/17) EMERGENCY DEPT VISIT (12/02/16) EMERGENCY DEPT VISIT (09/11/14) EXTRACRANIAL BILAT STUDY (04/28/18) GAIT TRAINING THERAPY (09/01/17) HEMOGLOBIN (12/03/16) HYDRATE IV INFUSION ADD-ON (09/11/14) HYDRATION IV INFUSION INIT (12/02/16) LIPID PANEL (04/22/18) MASSAGE THERAPY (12/11/16) MEASURE BLOOD OXYGEN LEVEL (09/01/17) MICROBE SUSCEPTIBLE ILDA (01/29/16) MR-STAPH DNA AMP PROBE (09/01/17) OFFICE/OUTPATIENT VISIT EST (08/11/17) OT EVAL LOW COMPLEX 30 MIN (09/01/17) PROTHROMBIN TIME (08/11/17) PT EVAL LOW COMPLEX 20 MIN (11/11/16) PT EVAL MOD COMPLEX 30 MIN (09/01/17) REMOVE IMPACTED EAR WAX UNI (01/29/16) ROUTINE VENIPUNCTURE (10/13/18) SCR MAMMO BI INCL CAD (04/28/18) SELF CARE MNGMENT TRAINING (09/01/17) THER/PROPH/DIAG INJ SC/IM (04/02/16) THER/PROPH/DIAG IV INF INIT (09/11/14) THERAPEUTIC EXERCISES (09/01/17) THROMBOPLASTIN TIME PARTIAL (08/11/17) TOTAL KNEE ARTHROPLASTY (09/01/17) TX/PRO/DX INJ NEW DRUG ADDON (09/11/14) URINALYSIS AUTO W/O SCOPE (04/22/18) URINALYSIS AUTO W/SCOPE (10/13/18) URINE BACTERIA CULTURE (01/29/16) URINE CULTURE/COLONY COUNT (01/29/16) VITAMIN D 25 HYDROXY (11/01/16) X-RAY EXAM ABDOMEN 2 VIEWS (10/13/18) X-RAY EXAM CHEST 2 VIEWS (08/11/17) X-RAY EXAM OF KNEE 1 OR 2 (09/01/17) X-RAY EXAM OF KNEE 3 (10/02/16) (1) GI bleed SNOMED Code(s): 94291829 Code(s): K92.2 - GASTROINTESTINAL HEMORRHAGE, UNSPECIFIED Priority: Medium Current Visit: No Qualifiers: GI bleed type/associated pathology: unspecified gastrointestinal hemorrhage type Qualified Code(s): K92.2 - Gastrointestinal hemorrhage, unspecified Problem List Initiated/Reviewed/Updated: Yes Plan: 82 y/o lady with recurrent GI bleed. Appears to be from lower GI tract, presumed diverticular bleed - would employ watchful waiting and transfuse if needed. Pt is at a higher risk of complications from endoscopy and is not apparently bleeding at this time. Would consider endoscopy if bleeding continues or has need for multiple transfusions. She has had a colonoscopy since the bleeding episodes started without any malignancy and indicates a probable source - NPO until hemoglobin stabilizes - recommend trending hemoglobin levels every 4-6 hours - Can advance diet as tolerated when evidence that bleeding has stopped - Pt may follow up in my office for consultation of colonoscopy as an outpatient if she wishes to do so Surgery to sign off. Discussed findings with Dr. Richardson. Irlanda Prince MD General Surgery
[2018-10-17] MEDS: Sodium Chloride 0.9% 1,000 ML IV SCH (12:42)
[2018-10-17] MEDS: guaiFENesin/Dextromethorphan 100-10 MG/5 ML Soln 5 ML Cup PO PRN ×2 (18:48→23:42)
[2018-10-18] MEDS: guaiFENesin/Dextromethorphan 100-10 MG/5 ML Soln 5 ML Cup PO PRN ×3 (06:11→20:11)
[2018-10-18] MEDS: Pantoprazole 40 MG Tab.CR PO SCH (06:11)
[2018-10-18] MEDS: Famotidine 20 MG/2 ML SDV IVPUSH SCH (08:39)
[2018-10-18] MEDS: Sodium Chloride 0.9% 1,000 ML IV SCH (08:42)
--- NOTE | 2018-10-18 10:30 | PCM.PN ---
- General Info Date of Service: 10/18/18 Admission Dx/Problem (Free Text): Admission Diagnosis/Problem Admission Diagnosis/Problem GI bleed not requiring more than 4 units of blood in 24 hours, ICU, or surgery Subjective Update: Follow Up Functional Status: Reports: Pain Controlled, Tolerating Diet, Ambulating, Urinating. Denies: New Symptoms - Review of Systems General: Denies: Fever, Weakness, Fatigue, Malaise, Chills HEENT: Reports: No Symptoms Pulmonary: Denies: Shortness of Breath Cardiovascular: Denies: Palpitations, Dyspnea on Exertion, Edema, Lightheadedness Gastrointestinal: Reports: Hematochezia. Denies: Abdominal Pain, Decreased Appetite, Diarrhea, Melena, Nausea, Vomiting Genitourinary: Reports: No Symptoms Musculoskeletal: Reports: No Symptoms Skin: Denies: Cyanosis, Mottled, Pallor, Diaphoresis, Bruising Neurological: Denies: Confusion, Weakness, Gait Disturbance Psychiatric: Denies: Depression, Anxiety, Agitation, Hallucinations Systems Review Comment:: No acute issues and had a good night. However she had 2 maroon bowel movement: 1 last night and now this morning. Her Hgb is now down to 9.2 gram. The rest of her morning labs are fairly unremarkable. - Patient Data Vitals - Most Recent: Last Vital Signs Temp 36.3 C 10/18/18 08:33 Pulse 74 10/18/18 08:33 Resp 16 10/18/18 08:33 BP 116/93 H 10/18/18 08:33 Pulse Ox 94 L 10/18/18 08:33 Orthostatic Blood Pressure [ 134/91 Standing] Orthostatic Blood Pressure [ 135/75 Sitting] Orthostatic Blood Pressure [ 159/82 Supine] Weight - Most Recent: 85.139 kg I&O - Last 24 Hours: Intake & Output 10/17/18 10/18/18 10/18/18 22:59 06:59 14:59 Intake Total 803 1290 120 Output Total 320 1300 Balance 483 -10 120 Lab Results Last 24 Hours: Laboratory Results - last 24 hr 10/18/18 10/18/18 Range/Units 06:20 06:20 WBC 4.04 (3.98-10.04) K/mm3 RBC 3.26 L (3.98-5.22) M/mm3 Hgb 9.2 L (11.2-15.7) gm/L Hct 28.9 L (34.1-44.9) % MCV 88.7 (79.4-94.8) fl MCH 28.2 (25.6-32.2) pg MCHC 31.8 L (32.2-35.5) g/dl RDW Std Deviation 51.6 H (36.4-46.3) fL Plt Count 212 (182-369) K/mm3 MPV 10.5 (9.4-12.3) fl Neut % (Auto) 44.4 (34.0-71.1) % Lymph % (Auto) 37.1 (19.3-51.7) % [place] % (Auto) 12.9 H (4.7-12.5) % Eos % (Auto) 4.2 (0.7-5.8) Baso % (Auto) 1.2 (0.1-1.2) % Neut # (Auto) 1.79 (1.56-6.13) K/mm3 Lymph # (Auto) 1.50 (1.18-3.74) K/mm3 [place] # (Auto) 0.52 H (0.24-0.36) K/mm3 Eos # (Auto) 0.17 (0.04-0.36) K/mm3 Baso # (Auto) 0.05 (0.01-0.08) K/mm3 Sodium 141 (136-145) mEq/L Potassium 3.8 (3.5-5.1) mEq/L Chloride 107 (98-107) mEq/L Carbon Dioxide 25 (21-32) mEq/L Anion Gap 12.8 (5-15) BUN 16 (7-18) mg/dL Creatinine 0.7 (0.55-1.02) mg/dL Est Cr Clr Drug Dosing 48.16 mL/min Estimated GFR (MDRD) > 60 (>60) mL/min BUN/Creatinine Ratio 22.9 H (14-18) Glucose 107 (83-115) mg/dL Calcium 8.1 L (8.5-10.1) mg/dL Magnesium 1.9 (1.8-2.4) mg/dl Med Orders - Current: Current Medications Acetaminophen (Tylenol) 650 mg PO Q4H PRN PRN Reason: Pain (Mild 1-3)/fever Hydrocodone Bitart/Acetaminophen ([place] 325-5 Mg) 1 tab PO Q4H PRN PRN Reason: Pain (moderate 4-6) Albuterol/Ipratropium (Duoneb 3.0-0.5 Mg/3 Ml) 3 ml NEB Q4H PRN PRN Reason: Shortness Of Breath/wheezing Last Admin: 10/17/18 18:55 Dose: 3 ml Guaifenesin/Phenylephrine HCl (Robitussin Dm) 5 ml PO Q4H PRN PRN Reason: Cough Last Admin: 10/18/18 06:11 Dose: 5 ml Hydralazine HCl (Apresoline) 20 mg IVPUSH Q4H PRN PRN Reason: Hypertension Hydromorphone HCl (Dilaudid) 0.25 mg IVPUSH Q2H PRN PRN Reason: Pain (severe 7-10) Promethazine HCl 6.25 mg/ (Sodium Chloride) 50.25 mls @ 100 mls/hr IV Q6H PRN PRN Reason: Nausea/Vomiting Sodium Chloride (Normal Saline) 1,000 mls @ 50 mls/hr IV ASDIRECTED [facility] Last Admin: 10/18/18 08:42 Dose: 50 mls/hr Iron Sucrose 200 mg/ Sodium (Chloride) 260 mls @ 83 mls/hr IV ONETIME ONE Stop: 10/18/18 13:17 Magnesium Sulfate (Pharmacy To Dose - Magnesium Replacement) 0 dose .XX ASDIRECTED PRN PRN Reason: PHARMACY TO MONITOR Metoprolol Tartrate (Lopressor) 5 mg IVPUSH Q4H PRN PRN Reason: Tachycardia Ondansetron HCl (Zofran) 4 mg IV Q6H PRN PRN Reason: Nausea/Vomiting Pantoprazole Sodium (Protonix) 40 mg PO DAILY@0700 [facility] Last Admin: 10/18/18 06:11 Dose: 40 mg Potassium Chloride (Pharmacy To Dose - Potassium Replacement) 0 dose .XX ASDIRECTED PRN PRN Reason: PHARMACY TO MONITOR Sodium Chloride (Saline Flush) 10 ml FLUSH ASDIRECTED PRN PRN Reason: Keep Vein Open Last Admin: 10/16/18 22:45 Dose: 10 ml Temazepam (Restoril) 7.5 mg PO BEDTIME PRN PRN Reason: Sleep Discontinued Medications Famotidine (Pepcid) 20 mg IVPUSH DAILY [facility] Stop: 10/18/18 09:01 Last Admin: 10/18/18 08:39 Dose: 20 mg Sodium Chloride (Normal Saline) 1,000 mls @ 150 mls/hr IV ASDIRECTED ONE Stop: 10/17/18 04:58 Last Admin: 10/16/18 22:40 Dose: Not Given Sodium Chloride (Normal Saline) 1,000 mls @ 15 mls/hr IV ONETIME ONE Stop: 10/19/18 17:37 Last Admin: 10/17/18 01:29 Dose: Not Given Pantoprazole Sodium (Protonix Iv) 40 mg IVPUSH ONETIME ONE Stop: 10/16/18 22:20 Last Admin: 10/16/18 22:39 Dose: 40 mg Sodium Chloride (Saline Flush) 10 ml FLUSH Q8HR [facility] Last Admin: 10/17/18 05:56 Dose: Not Given - Exam General: Alert, Oriented, Cooperative, No Acute Distress HEENT: Pupils Equal, Pupils Reactive, EOMI, Mucous Membr. Moist/[place] Neck: Supple Lungs: Clear to Auscultation, Normal Respiratory Effort Cardiovascular: Regular Rate, Regular Rhythm, Murmurs GI/Abdominal Exam: Normal Bowel Sounds, Soft, Non-Tender, No Organomegaly, No Distention, No Abnormal Bruit, No Mass (Female) Exam: Deferred Back Exam: Normal Inspection, Decreased Range of Motion Extremities: Normal Inspection, Normal Range of Motion, Non-Tender, No Pedal Edema, Normal Capillary Refill Peripheral Pulses: 2+: Dorsalis Pedis (L), Dorsalis Pedis (R) Skin: Warm, Dry, Intact Neurological: No New Focal Deficit Psy/Mental Status: Alert, Normal Affect, Normal Mood - Problem List Review Problem List Initiated/Reviewed/Updated: Yes - My Orders Last 24 Hours: My Active Orders 10/17/18 11:30 Sodium Chloride 0.9% [Normal Saline] 1,000 ml IV ASDIRECTED 10/17/18 15:35 Activity as Tolerated [RC] .Routine 10/17/18 18:22 Dextromethorphan/guaiFENesin [Robitussin DM] 5 ml PO Q4H PRN 10/17/18 18:34 IS (RT) [RT Incentive Spirometry] [RC] Q2HWA 10/17/18 Lunch Regular Diet [DIET] 10/18/18 10:10 Iron Sucrose Complex [Venofer] 200 mg Sodium Chloride 0.9% [Normal Saline] 250 ml IV ONETIME - Plan Plan:: Assessment/Plan: Acute: GI Bleed: -Likely 2/2 Diverticulosis - Carries a hx/o GI 3 years in [facility] with similar presentation - 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, Large Sigmoid Polyps S/p Resection with Unknown Results, and Internal Hemorrhoids in 07/05/2016 - Had a" gush of blood" and "blood over her house" - Hgb 10.8-->9.8-->now is 9.2 - She remains hemodynamically stable - She does not take ASA or NSAIDs on a regular basis - No anti-coagulations either for VTE/PE or Stroke prophylaxis/treatment - Had 2 more episode of maroon colored bowel movement; offered to stay and if Hgb level stays the same in AM, she can go home--> she agreed Anemia - 2/2 GI Bleed - Carries a hx/o GI Bleed 2/2 Pancolonic Diverticulosis and Internal Hemorrhoids 07/05/2016 - Hgb 10.8 (baseline is 12 grams)-->9.9-->now 9.2 - She did not received any fluids in ED - Had only low IVF for maintenance on the floor; will d/c it after iron infusion today - Now tolerating regular diet - Iron panel shows JOANNE; offered iron infusion x 1 - Dr. Bui saw her and recommended conservative management Chronic: Impaired Vision GERD HLD Hiatal Hernia S/p Reduction Hx/o GI Bleed Hx/o Pyelonephritis Mild Scoliosis Osteoporosis Heart Murmur Hx/o Right TKA Plan: She remains clinically stable Routine AM Labs GI/DVT PPx: PPI and SCDs GS consulted Additional orders as above Encouraged to ambulate Code Status: 1 Possible discharge in AM
[2018-10-19] MEDS: Pantoprazole 40 MG Tab.CR PO SCH (06:28)
[2018-10-19] MEDS ORDERED: HYDROmorphone 0.5 MG/0.5 ML Syringe IVPUSH PRN (07:52)
[2018-10-19 09:07] VITALS: BP 113/97
--- NOTE | 2018-10-19 12:33 | PCM.DCSUM1 ---
Discharge Summary - Hospital Course Free Text/Narrative:: This is an 83 yo elderly white female with past medical hx/o Impaired Vision, GERD, HLD, Hiatal Hernia S/p Reduction, Hx/o GI Bleed, Hx/o Pyelonephritis, Mild Scoliosis, Osteoporosis, Heart Murmur, and Hx/o Right TKA who comes in for evaluation of a one time episode of bloody diarrhea that started yesterday morning after having a bowel movement. She states there was blood all over the house and that she was all bloody. She denies any abdominal complaints. No fever or chills. Patient reports of a similar episode about 3 years ago when she was visiting her son in [facility] [place]. She underwent for a lower endoscopy but was told everything was benign. She was not sure if they found pockets in her colon. However she tells me, she has had history of hemorrhoids but denies having constipation. Since coming to ED and on to the [facility] floor, patient has not had any rectal bleeding episode. Her initial work up in ED shows a CBC remarkable for RBC of 3.83, hemoglobin of 10.8, hematocrit of 34, MCHC of 31.8, and RDW of 52.8. Her chemistry is significant for glucose of 135, calcium of 8.4, and albumin of 3. Patient was admitted last night under observation for acute rectal bleed. She is full code. Diagnosis: Stroke: No Modified [place] Scale: No Symptoms at All Modified Laura Scale Score: 0 - Discharge Data Discharge Date: 10/19/18 Discharge Disposition: Home, Self-Care 01 Condition: Good - Discharge Diagnosis/Problem(s) (1) Diverticulosis SNOMED Code(s): 095783566 ICD Code: K57.90 - DVRTCLOS OF INTEST, PART UNSP, W/O PERF OR ABSCESS W/O BLEED Status: Chronic (2) Anemia SNOMED Code(s): 044718824 ICD Code: D64.9 - ANEMIA, UNSPECIFIED Status: Acute Qualifiers: Anemia type: iron deficiency Iron deficiency anemia type: chronic blood loss Qualified Code(s): D50.0 - Iron deficiency anemia secondary to blood loss (chronic) (3) GI bleed SNOMED Code(s): 51491135 ICD Code: K92.2 - GASTROINTESTINAL HEMORRHAGE, UNSPECIFIED Status: Acute Priority: Medium Qualifiers: GI bleed type/associated pathology: diverticulosis Qualified Code(s): K57.91 - Diverticulosis of intestine, part unspecified, without perforation or abscess with bleeding - Patient Summary/Data Operative Procedure(s) Performed: None Complications: None Consults: Consultations 10/16/18 22:50 Consult to Case Management/Waiter/Waitress Dining Car [CONS] Routine Consult to Physician [CONS] Routine Labs Pending at D/C: None Recommended Follow-up Testing/Procedures: Possible outpatient endoscopy on follow up appointment with Dr. Bui Planned Operative Procedure(s) after DC: Possible lower endoscopy Hospital Course: Patient was primarily admitted for acute rectal bleed secondary to pancolonic diverticulosis given her history of it back 2015 in [place], [place]. Dr. Bui was consulted but she recommended conservative management and outpatient follow- up if needed. Hence, she was treated medically. She did have a few more bouts all maroon-colored stool but her hemoglobin finally stabilized at 9.2 g on the day of discharge. Her hospital course was uncomplicated and she received iron infusion prior to discharge. Patient was stable upon discharge. She was advised to follow discharge instructions and to see her PCP in 1 week. She was further advised to come back or seek immediate care should her symptom persists or gets worse. The patient and her son at bedside expressed understanding and in agreement with the plan as discussed above. All questions and concerns were answered. To note, we attempted to reach her PCP for discharge care plan but w/o any success. - Patient Instructions Diet: Usual Diet as Tolerated Activity: As Tolerated Driving: May Drive Today Showering/Bathing: May Shower Notify Provider of: Fever, Increased Pain, Nausea and/or Vomiting Other/Special Instructions: - Please take all new medications as directed. - Resume all home medications and routine home activities as tolerated. - Recommend follow up CBC Friday through your PCP's office. - Absolutely avoid Aspirin or NSAIDs (Ibuprofen, Advil or Motrin)! - Recommend you see Dr. Bui in 1-2 weeks. - Call or follow up with your PCP for any questions or concerns after discharge. - Follow up with your PCP in 1 week. - Come back or seek immediate care at the nearest medical facility should your symptom persists or gets worse - Discharge Plan *PRESCRIPTION DRUG MONITORING PROGRAM REVIEWED*: Not Applicable *COPY OF PRESCRIPTION DRUG MONITORING REPORT IN PATIENT LUCIE: Not Applicable Prescriptions/Med Rec: Ascorbic Acid [Vitamin C] 250 mg PO BEDTIME #30 tab.chew Ferrous Sulfate [Iron] 325 mg PO BEDTIME #30 tablet Home Medications: Home Meds Omeprazole 20 mg PO DAILY #14 cap.cr 12/02/16 [Rx] Calcium Carb & Citrate/Vit D3 [Citracal + D ER] 2 tab PO DAILY 10/16/18 [History ] Cholecalciferol (Vitamin D3) [Vitamin D3] 1,000 unit PO DAILY 10/16/18 [History] Ascorbic Acid [Vitamin C] 250 mg PO BEDTIME #30 tab.chew 10/19/18 [Rx] Ferrous Sulfate [Iron] 325 mg PO BEDTIME #30 tablet 10/19/18 [Rx] Patient Handouts: Anemia, Iron-Rich Diet, Diverticulosis, Rectal Bleeding, Easy -to-Read Referrals: Irlanda Prince MD [Physician] - 11/02/18 8:00 am (please attend the scheduled follow up appointment with Dr. Bui-will see Betsy [place]) Nidia Guevara PA-C [Primary Care Provider] - 10/27/18 9:00 am (please attend the scheduled follow up appointment with your primary care provider) - Discharge Summary/Plan Comment DC Time >30 min.: No Discharge Summary/Plan Comment: Discharge to Home - General Info Date of Service: 10/19/18 Admission Dx/Problem (Free Text: Admission Diagnosis/Problem Admission Diagnosis/Problem GI bleed not requiring more than 4 units of blood in 24 hours, ICU, or surgery Subjective Update: Follow Up Functional Status: Reports: Pain Controlled, Tolerating Diet, Ambulating, Urinating - Review of Systems General: Denies: Fever, Weakness, Fatigue, Malaise, Chills HEENT: Reports: No Symptoms Pulmonary: Denies: Shortness of Breath Cardiovascular: Denies: Chest Pain, Palpitations, Dyspnea on Exertion, Orthopnea , Edema, Lightheadedness Gastrointestinal: Reports: Flatus, Other (some maroon colored stool ). Denies: Abdominal Pain, Constipation, Decreased Appetite, Diarrhea, Nausea, Vomiting Genitourinary: Reports: No Symptoms Musculoskeletal: Reports: No Symptoms Skin: Denies: Cyanosis, Jaundice, Mottled, Pallor, Diaphoresis, Bruising Neurological: Denies: Confusion, Dizziness, Syncope, Difficulty Walking, Weakness, Gait Disturbance Psychiatric: Denies: Depression, Anxiety, Agitation, Hallucinations Systems Review Comment: No significant overnight or acute issues. She had another maroon colored stool but her Hgb level this AM is essentially unchanged. She is also clinically and hemodynamically stable. - Patient Data Vitals - Most Recent: Last Vital Signs Temp 36.4 C 10/19/18 07:27 Pulse 69 10/19/18 07:27 Resp 14 10/19/18 07:27 BP 113/97 H 10/19/18 07:27 Pulse Ox 92 L 10/19/18 07:27 Orthostatic Blood Pressure [ 134/91 Standing] Orthostatic Blood Pressure [ 135/75 Sitting] Orthostatic Blood Pressure [ 159/82 Supine] Weight - Most Recent: 85.321 kg I&O - Last 24 hours: Intake & Output 10/18/18 10/19/18 10/19/18 22:59 06:59 14:59 Intake Total 1760 250 300 Output Total 600 1400 Balance 1160 -1150 300 Lab Results - Last 24 hrs: Laboratory Results - last 24 hr 10/19/18 Range/Units 06:26 Hgb 9.1 L (11.2-15.7) gm/L Med Orders - Current: Current Medications Acetaminophen (Tylenol) 650 mg PO Q4H PRN PRN Reason: Pain (Mild 1-3)/fever Hydrocodone Bitart/Acetaminophen ([place] 325-5 Mg) 1 tab PO Q4H PRN PRN Reason: Pain (moderate 4-6) Albuterol/Ipratropium (Duoneb 3.0-0.5 Mg/3 Ml) 3 ml NEB Q4H PRN PRN Reason: Shortness Of Breath/wheezing Last Admin: 10/17/18 18:55 Dose: 3 ml Guaifenesin/Phenylephrine HCl (Robitussin Dm) 5 ml PO Q4H PRN PRN Reason: Cough Last Admin: 10/18/18 20:11 Dose: 5 ml Hydralazine HCl (Apresoline) 20 mg IVPUSH Q4H PRN PRN Reason: Hypertension Hydromorphone HCl (Dilaudid) 0.25 mg IVPUSH Q2H PRN PRN Reason: Pain (severe 7-10) Promethazine HCl 6.25 mg/ (Sodium Chloride) 50.25 mls @ 100 mls/hr IV Q6H PRN PRN Reason: Nausea/Vomiting Magnesium Sulfate (Pharmacy To Dose - Magnesium Replacement) 0 dose .XX ASDIRECTED PRN PRN Reason: PHARMACY TO MONITOR Metoprolol Tartrate (Lopressor) 5 mg IVPUSH Q4H PRN PRN Reason: Tachycardia Ondansetron HCl (Zofran) 4 mg IV Q6H PRN PRN Reason: Nausea/Vomiting Pantoprazole Sodium (Protonix) 40 mg PO DAILY@0700 [facility] Last Admin: 10/19/18 06:28 Dose: 40 mg Potassium Chloride (Pharmacy To Dose - Potassium Replacement) 0 dose .XX ASDIRECTED PRN PRN Reason: PHARMACY TO MONITOR Sodium Chloride (Saline Flush) 10 ml FLUSH ASDIRECTED PRN PRN Reason: Keep Vein Open Last Admin: 10/16/18 22:45 Dose: 10 ml Temazepam (Restoril) 7.5 mg PO BEDTIME PRN PRN Reason: Sleep Discontinued Medications Famotidine (Pepcid) 20 mg IVPUSH DAILY [facility] Stop: 10/18/18 09:01 Last Admin: 10/18/18 08:39 Dose: 20 mg Hydromorphone HCl (Dilaudid) 0.25 mg IVPUSH Q2H PRN PRN Reason: Pain (severe 7-10) Sodium Chloride (Normal Saline) 1,000 mls @ 150 mls/hr IV ASDIRECTED ONE Stop: 10/17/18 04:58 Last Admin: 10/16/18 22:40 Dose: Not Given Sodium Chloride (Normal Saline) 1,000 mls @ 15 mls/hr IV ONETIME ONE Stop: 10/19/18 17:37 Last Admin: 10/17/18 01:29 Dose: Not Given Sodium Chloride (Normal Saline) 1,000 mls @ 50 mls/hr IV ASDIRECTED [facility] Stop: 10/18/18 13:45 Last Admin: 10/18/18 08:42 Dose: 50 mls/hr Iron Sucrose 200 mg/ Sodium (Chloride) 260 mls @ 83 mls/hr IV ONETIME ONE Stop: 10/18/18 13:17 Last Admin: 10/18/18 10:37 Dose: 83 mls/hr Pantoprazole Sodium (Protonix Iv) 40 mg IVPUSH ONETIME ONE Stop: 10/16/18 22:20 Last Admin: 10/16/18 22:39 Dose: 40 mg Sodium Chloride (Saline Flush) 10 ml FLUSH Q8HR TWYLA Last Admin: 10/17/18 05:56 Dose: Not Given - Exam General: Reports: Alert, Oriented, Cooperative, No Acute Distress HEENT: Reports: Pupils Equal, Pupils Reactive, EOMI, Mucous Membr. Moist/[place] Neck: Reports: Supple Lungs: Reports: Clear to Auscultation, Normal Respiratory Effort Cardiovascular: Reports: Regular Rate, Regular Rhythm, Murmurs GI/Abdominal Exam: Normal Bowel Sounds, Soft, Non-Tender, No Organomegaly, No Distention, No Abnormal Bruit (Female) Exam: Deferred Rectal (Female) Exam: Deferred Back Exam: Reports: Normal Inspection, Full Range of Motion Extremities: Normal Inspection, Normal Range of Motion, No Pedal Edema, Normal Capillary Refill Skin: Reports: Warm, Dry, Intact Neurological: Reports: No New Focal Deficit Psy/Mental Status: Reports: Alert, Normal Affect, Normal Mood
== END 2018-10-19 13:14 | disposition home or self-care (01) ==
LOC: JD.ED 19:56 → JD.MS 22:42
PROVIDERS: ADMIT Internal Medicine; ATTEND Internal Medicine
DX: K57.91 Diverticulosis of intestine, part unspecified, without perforation or abscess with bleeding (principal); D50.0 Iron deficiency anemia secondary to blood loss (chronic); K21.9 Gastro-esophageal reflux disease without esophagitis; E66.9 Obesity, unspecified; E78.00 Pure hypercholesterolemia, unspecified; M41.9 Scoliosis, unspecified; M81.0 Age-related osteoporosis without current pathological fracture; Z86.010 Personal history of colon polyps; Z98.890 Other specified postprocedural states; Z96.651 Presence of right artificial knee joint; Z79.899 Other long term (current) drug therapy
CPT/HCPCS: 36415; 80048; 80053; 83540; 83735; 84466; 85007; 85018; 85025; 85027; 85610; 85730; 86850; 86900; 86901; 94640; 94760; 96361; 96365; 96366; 96374; 96375; 96376; 99284; A9270; C9113; G0378; J1756; J3490; J7040; J7050; 99285; J7620-GY

== ENCOUNTER 2018-11-27 07:46 | Inpatient (IN) | payer MEDICARE, BC ==
[~2018-11-27 07:46] MED LIST changes: -Lidocaine 1% 4 ML ONE; -Morphine PF 1 MG/ML Amp ONE; -Propofol 200 MG/20 ML SDV ONE; -ceFAZolin 1 GM Vial ONE; -fentaNYL 100 MCG/2 ML SDV ONE
--- NOTE | 2018-11-27 08:18 | PCM.PREANE ---
Preanesthetic Assessment - Anesthesia/Transfusion/Family Hx Anesthesia History: Prior Anesthesia Without Reaction Family History of Anesthesia Reaction: No Transfusion History: No Prior Transfusion(s) Intubation History: Unknown - Review of Systems General: No Symptoms Pulmonary: No Symptoms (ETOH rarely) Cardiovascular: No Symptoms (History of carotid stenosis: Fall 2018) Gastrointestinal: No Symptoms (History of diverticulosis, GERD, GI Bleed, Hiatal hernia, ) Neurological: No Symptoms (Scoliosis) Other: Reports: None, Easy Bruising - Physical Assessment NPO Status Date: 11/26/18 NPO Status Time: 21:00 Pulse: 78 O2 Sat by Pulse Oximetry: 94 Respiratory Rate: 16 Blood Pressure: 154/81 Temperature: 37.3 C Height: 1.57 m Weight: 85.275 kg ASA Class: 2 Mental Status: Alert & Oriented x3 Airway Class: Mallampati = 2 Dentition: Reports: Dentures (upper and lower) Thyro-Mental Finger Breadths: 3 Mouth Opening Finger Breadths: 3 ROM/Head Extension: Full Lungs: Clear to Auscultation, Normal Respiratory Effort Cardiovascular: Regular Rate, Regular Rhythm, No Murmurs - Lab Values: Labs reviewed and noted and within acceptable ranges to proceed with scheduled procedure. - Imaging/EKG Impressions: Echocardiogram: 2017/ EF 65-70%, with Grade I diastolic dysfunction noted - Allergies Allergies/Adverse Reactions: Allergies Allergy/AdvReac Type Severity Reaction Status Date / Time No Known Allergies Allergy Verified 11/26/18 13:43 - Anesthesia Plan Pre-Op Medication Ordered: None - Acknowledgements Anesthesia Type Planned: MAC Pt an Appropriate Candidate for the Planned Anesthesia: Yes Alternatives and Risks of Anesthesia Discussed w Pt/Guardian: Yes Pt/Guardian Understands and Agrees with Anesthesia Plan: Yes PreAnesthesia Questionnaire HEENT History: Reports: Impaired Vision Other HEENT History: excessive cerumen, glasses, dentures Cardiovascular History: Reports: Heart Murmur, High Cholesterol, Other (See Below) Other Cardiovascular History: carotid stenosis Respiratory History: Reports: None Gastrointestinal History: Reports: Colon Polyp, Diverticulosis, GI Bleed, Hiatal Hernia Other Gastrointestinal History: abdominal pain, tubular adenoma, rectal bleeding Genitourinary History: Reports: Pyelonephritis Other Genitourinary History: UTI 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: Musculoskeletal History: Reports: Arthritis, Osteoporosis, Other (See Below) Other Musculoskeletal History: L knee pain, L knee OA, mild scoliosis Neurological History: Reports: Other (See Below) Other Neuro History: dizziness, scoliosis Psychiatric History: Reports: None Endocrine/Metabolic History: Reports: Obesity/BMI 30+ Hematologic History: Reports: None Immunologic History: Reports: None Oncologic (Cancer) History: Reports: None Dermatologic History: Reports: None - Infectious Disease History Infectious Disease History: Reports: Other (See Below) Other Infectious Disease History: pt reports that she doesnt remember if she hsd any of these - Past Surgical History Head Surgeries/Procedures: Reports: None HEENT Surgical History: Reports: None Cardiovascular Surgical History: Reports: None Respiratory Surgical History: Reports: None GI Surgical History: Reports: Other (See Below) Other GI Surgeries/Procedures: abdominal surgery Female Surgical History: Reports: None, Hysterectomy Endocrine Surgical History: Reports: None Neurological Surgical History: Reports: None Musculoskeletal Surgical History: Reports: Hip Replacement, Knee Replacement Other Musculoskeletal Surgeries/Procedures:: Rt hip replacement Oncologic Surgical History: Reports: None Dermatological Surgical History: Reports: None - SUBSTANCE USE Smoking Status *Q: Never Smoker Recreational Drug Use History: No - HOME MEDS Home Medications: Home Meds Omeprazole 20 mg PO DAILY #14 cap.cr 12/02/16 [Rx] Calcium Carb & Citrate/Vit D3 [Citracal + D ER] 2 tab PO DAILY 10/16/18 [History ] Cholecalciferol (Vitamin D3) [Vitamin D3] 1,000 unit PO DAILY 10/16/18 [History] Ascorbic Acid [Vitamin C] 250 mg PO BEDTIME #30 tab.chew 10/19/18 [Rx] Ferrous Sulfate [Iron] 325 mg PO BEDTIME #30 tablet 10/19/18 [Rx] - CURRENT (IN HOUSE) MEDS Current Meds: Current Medications Lactated Ringer's (Ringers, Lactated) 1,000 mls @ 125 mls/hr IV ASDIRECTED TWYLA Stop: 11/27/18 23:00 Lidocaine/Sodium Bicarbonate (Buffered Lidocaine 1% In Ns 8.4%) 0.25 ml IDERM ONETIME PRN PRN Reason: Prior to IV Start Stop: 11/27/18 18:00 Sodium Chloride (Saline Flush) 10 ml FLUSH ASDIRECTED PRN PRN Reason: Keep Vein Open Stop: 11/27/18 18:00
[2018-11-27] MEDS ORDERED: Propofol 200 MG/20 ML SDV ONE ×2 (08:57→09:33)
[2018-11-27] MEDS ORDERED: Lidocaine 1% 2 ML ONE ×2 (08:58)
--- NOTE | 2018-11-27 10:25 | PCM.OPNOTE ---
- General Post-Op/Procedure Note Date of Surgery/Procedure: 11/27/18 Operative Procedure(s): EGD and colonoscopy Findings: Ongoing lower GI bleed, no source identified. Sliding Hiatal hernia, 5cm Severe diverticulosis Transverse colon and rectal polyps Pre Op Diagnosis: GI bleed Post-Op Diagnosis: same Anesthesia Technique: MAC Primary Surgeon: Irlanda Prince Anesthesia Provider: Connie Valle Pathology: 1. Gastric antrum biopsy 2. Transverse colon polyp 3. Rectal polyp x5 Fluid Replacement, Intraop: 900 Output, Urine Amount: 0 EBL in mLs: 200 Complications: none apparent Condition: Good
[2018-11-27] MEDS ORDERED: Ondansetron 4 MG Tab.DIS PO PRN (10:26)
--- NOTE | 2018-11-27 10:26 | PCM.PRNOTE ---
- Free Text/Narrative Note: Operative Report Date of Procedure: November 27, 2018 Pre Op Diagnosis: GI bleed Post-Op Diagnosis: Ongoing GI bleed Operative Procedures: 1. EGD with biopsy 2. Colonoscopy to the cecum with biopsy Primary Surgeon: Irlanda Prince MD Anesthesia Provider: Connie Valle CRNA Anesthesia Technique: MAC IV Fluid Replacement, Intraop: 900cc crystalloid Output, Urine Amount: 0 cc EBL in mLs: 200 cc Findings: 1. Ongoing lower GI bleed, no source identified. 2. Sliding Hiatal hernia, 5cm 3. Severe diverticulosis 4. Transverse colon and rectal polyps Specimens: 1. Gastric antrum biopsy 2. Transverse colon polyp 3. Rectal polyps 5 Drain/Tubes: None Indication: The patient is an 83-year-old lady who presented to the clinic with history of recent GI bleed. She was seen and evaluated during her inpatient stay, but no endoscopy was advised at that time. She followed up in the clinic and would like to proceed with endoscopy for more thorough evaluation of the cause of bleeding . The patient was consented for a diagnostic EGD and colonoscopy. Risks of bleeding, and perforation were discussed, and the patient agreed to the risks and wished to proceed. I gave her procedure, the patient did report that the colonoscopy preparation induced hematochezia. Description of the procedure: The patient was taken back to the endoscopy suite, and placed in the left lateral decubitus position. Local anesthetic to the oropharynx was administered , and a bite block was placed. The patient was sedated with MAC anesthesia. The Olympus video endoscope was inserted into the oropharynx and guided under direct vision into the esophagus, stomach, and duodenum. The gastric antrum was inspected and cold biopsy forceps were used to take tissue samples for H. pylori. The duodenal bulb and second portion of the duodenum were unremarkable. The scope was withdrawn to the stomach and retroflexed. There was no increased fluid, food or secretions in the upper gastrointestinal tract. No erosions or ulcers were noted. The scope was withdrawn to the esophagus. A this point we noted a 5cm sliding hiatal hernia. No Barretts esophagus changes were noted. The endoscope was then withdrawn Next, anorectal examination was performed. There was serosanguineous discharge noted at the anal orifice. No lesions, masses or hemorrhoids were noted externally or on palpation. The scope was placed into the rectum and advanced to cecum. Upon reaching the cecum, and the patients cecum was entered. There was mild tortuosity of the colon. The ileocecal valve was visualized and the appendiceal orifice identified. At this point, the scope was slowly withdrawn, paying attention to the mucosa. The patient had adequate bowel prep to reveal polyps greater than 5 mm, however, she had stigmata of recent bleeding with thin sanguinous coating throughout the colon. Severe diverticulosis was noted. No active bleeding site was found. She had a 3 mm flat polyp in the transverse colon which was removed with jumbo cold biopsy forceps. In the rectum, scope was retroflexed and some hemorrhoidal tissue was noted. She had additional polyposis in the rectum. Multiple flat polyps consistent with hyperplastic polyps were noted, 2 these measuring 1-2 mm were removed with jumbo cold biopsy forceps. An additional 3 polyps that had a more pedunculated appearance were seen in the rectum measuring 2-4 mm, these were removed using jumbo cold biopsy forceps. The scope was placed back in the lumen and excess air was aspirated. The scope was removed. The patient tolerated the procedure very well. Complications: None apparent Condition: The patient was transported to PACU in stable condition. She'll be kept as an inpatient in the hospital to ensure that she has no ongoing GI bleed and that this episode has resolved. Irlanda Prince MD General Surgery
--- NOTE | 2018-11-27 10:34 | PCM48HPAN ---
Post Anesthesia Note - EVALUATION WITHIN 48HRS OF ANESTHETIC Vital Signs in Normal Range: Yes Patient Participated in Evaluation: Yes Respiratory Function Stable: Yes Airway Patent: Yes Cardiovascular Function Stable: Yes Hydration Status Stable: Yes Pain Control Satisfactory: Yes Nausea and Vomiting Control Satisfactory: Yes Mental Status Recovered: Yes Pulse Rate: 61 SaO2: 95 Resp Rate: 16 Temperature: 37.3 C Blood Pressure: 141/73 Pulse Rate: 61 - COMMENTS/OBSERVATIONS Free Text/Narrative:: Pt. transferred to med/surg rm #[id number], resting quietly. No c/o. Report to RN. Transfer care.
[2018-11-27] MEDS: Dextrose 5%-0.45% NaCl 1,000 ML IV SCH ×2 (11:18→21:41)
[2018-11-27] MEDS: Pantoprazole 40 MG Tab.CR PO SCH (11:41)
[2018-11-28] MEDS: Pantoprazole 40 MG Tab.CR PO SCH (06:24)
[2018-11-28] MEDS: Dextrose 5%-0.45% NaCl 1,000 ML IV SCH (08:36)
--- NOTE | 2018-11-28 09:25 | PCM.SURGPN ---
- General Info Date of Service: 11/28/18 POD#: 1 Functional Status: Reports: Tolerating Diet, Ambulating, Other (no abdominal pain) - Patient Data Vitals - Most Recent: Last Vital Signs Temp 36.5 C 11/28/18 04:20 Pulse 79 11/28/18 04:20 Resp 14 11/28/18 04:20 BP 122/99 H 11/28/18 04:20 Pulse Ox 94 L 11/28/18 04:20 Weight - Most Recent: 85.865 kg I&O - Last 24 Hours: Intake & Output 11/27/18 11/28/18 11/28/18 22:59 06:59 14:59 Intake Total 240 1655 Balance 240 1655 Lab Results Last 24 Hrs: Laboratory Results - last 24 hr 11/27/18 11/27/18 11/27/18 Range/Units 11:06 11:06 16:50 WBC 4.45 4.39 (3.98-10.04) K/mm3 RBC 4.15 3.36 L (3.98-5.22) M/mm3 Hgb 12.4 D 9.9 L D (11.2-15.7) gm/L Hct 39.1 31.9 L (34.1-44.9) % MCV 94.2 94.9 H (79.4-94.8) fl MCH 29.9 29.5 (25.6-32.2) pg MCHC 31.7 L 31.0 L (32.2-35.5) g/dl RDW Std Deviation 54.4 H 53.3 H (36.4-46.3) fL Plt Count 308 243 (182-369) K/mm3 MPV 9.8 9.9 (9.4-12.3) fl Neut % (Auto) 51.7 (34.0-71.1) % Lymph % (Auto) 36.9 (19.3-51.7) % [place] % (Auto) 9.0 (4.7-12.5) % Eos % (Auto) 1.8 (0.7-5.8) Baso % (Auto) 0.4 (0.1-1.2) % Neut # (Auto) 2.30 (1.56-6.13) K/mm3 Lymph # (Auto) 1.64 (1.18-3.74) K/mm3 [place] # (Auto) 0.40 H (0.24-0.36) K/mm3 Eos # (Auto) 0.08 (0.04-0.36) K/mm3 Baso # (Auto) 0.02 (0.01-0.08) K/mm3 Blood Type O POSITIVE Gel Antibody Screen Negative 11/28/18 11/28/18 Range/Units 00:35 06:10 WBC 4.62 3.57 L (3.98-10.04) K/mm3 RBC 3.04 L 3.01 L (3.98-5.22) M/mm3 Hgb 8.9 L 8.9 L (11.2-15.7) gm/L Hct 28.7 L 28.6 L (34.1-44.9) % MCV 94.4 95.0 H (79.4-94.8) fl MCH 29.3 29.6 (25.6-32.2) pg MCHC 31.0 L 31.1 L (32.2-35.5) g/dl RDW Std Deviation 53.4 H 52.7 H (36.4-46.3) fL Plt Count 229 220 (182-369) K/mm3 MPV 9.0 L 9.4 (9.4-12.3) fl Neut % (Auto) (34.0-71.1) % Lymph % (Auto) (19.3-51.7) % [place] % (Auto) (4.7-12.5) % Eos % (Auto) (0.7-5.8) Baso % (Auto) (0.1-1.2) % Neut # (Auto) (1.56-6.13) K/mm3 Lymph # (Auto) (1.18-3.74) K/mm3 [place] # (Auto) (0.24-0.36) K/mm3 Eos # (Auto) (0.04-0.36) K/mm3 Baso # (Auto) (0.01-0.08) K/mm3 Blood Type Gel Antibody Screen Med Orders - Current: Current Medications Dextrose/Sodium Chloride (Dextrose 5%-1/2 Ns) 1,000 mls @ 100 mls/hr IV ASDIRECTED TWYLA Last Admin: 11/28/18 08:36 Dose: 100 mls/hr Ondansetron HCl (Zofran Odt) 4 mg PO Q6H PRN PRN Reason: nausea, able to take PO Pantoprazole Sodium (Protonix) 40 mg PO DAILY@0700 [facility] Last Admin: 11/28/18 06:24 Dose: 40 mg Discontinued Medications Lactated Ringer's (Ringers, Lactated) 1,000 mls @ 125 mls/hr IV ASDIRECTED [facility] Stop: 11/27/18 23:00 Last Admin: 11/27/18 08:15 Dose: 125 mls/hr Lidocaine HCl (Xylocaine-Mpf 1%) Confirm Administered Dose 2 mls @ as directed .ROUTE .STK-MED ONE Stop: 11/27/18 08:59 Lidocaine HCl (Xylocaine-Mpf 1%) Confirm Administered Dose 2 mls @ as directed .ROUTE .STK-MED ONE Stop: 11/27/18 08:59 Lidocaine/Sodium Bicarbonate (Buffered Lidocaine 1% In Ns 8.4%) 0.25 ml IDERM ONETIME PRN PRN Reason: Prior to IV Start Stop: 11/27/18 18:00 Last Admin: 11/27/18 08:15 Dose: 0.25 ml Propofol (Diprivan 20 Ml) Confirm Administered Dose 200 mg .ROUTE .STK-MED ONE Stop: 11/27/18 08:58 Propofol (Diprivan 20 Ml) Confirm Administered Dose 200 mg .ROUTE .STK-MED ONE Stop: 11/27/18 09:34 Sodium Chloride (Saline Flush) 10 ml FLUSH ASDIRECTED PRN PRN Reason: Keep Vein Open Stop: 11/27/18 18:00 - Exam General: Alert, Oriented HEENT: Pupils Equal, EOMI Neck: Supple Lungs: Normal Respiratory Effort GI/Abdominal Exam: Soft, Non-Tender, No Distention - Problem List & Annotations (1) GI bleed SNOMED Code(s): 87115167 Code(s): K92.2 - GASTROINTESTINAL HEMORRHAGE, UNSPECIFIED Status: Acute Priority: Medium Current Visit: No Qualifiers: GI bleed type/associated pathology: diverticulosis Qualified Code(s): K57.91 - Diverticulosis of intestine, part unspecified, without perforation or abscess with bleeding - Problem List Review Problem List Initiated/Reviewed/Updated: Yes - My Orders Last 24 Hours: Active Orders 24 hr Category Date Time Status Patient Status [ADT] Routine ADT 11/27/18 10:27 Active Antiembolic Devices [RC] Q12H Care 11/27/18 10:31 Active Height and Weight [RC] 04 Care 11/27/18 10:26 Active Oxygen Therapy [RC] PRN Care 11/27/18 10:27 Active Ready for Discharge [RC] PER UNIT ROUTINE Care 11/28/18 09:22 Ordered Up ad Radha [RC] ASDIRECTED Care 11/27/18 10:26 Active VTE/DVT Education [RC] PER UNIT ROUTINE Care 11/27/18 10:27 Active Vital Signs [RC] Q4H Care 11/27/18 10:27 Active Clear Liquid Diet [DIET] Diet 11/28/18 Breakfast Active CBC W/O DIFF,HEMOGRAM [HEME] Routine Lab 11/28/18 10:30 Ordered Dextrose 5%-0.45% NaCl [Dextrose 5%-1/2 NS] 1,000 ml Med 11/27/18 10:30 Active IV ASDIRECTED Ondansetron [Zofran ODT] Med 11/27/18 10:26 Active 4 mg PO Q6H PRN Pantoprazole [ProTONIX] Med 11/27/18 11:15 Active 40 mg PO DAILY@0700 Anticoagulation Contraindications VTE [AST] Per Unit Oth 11/27/18 10:26 Ordered Routine Sequential Compression Device [OM.PC] Per Unit Routine Oth 11/27/18 10:30 Ordered Resuscitation Status Routine Resus Stat 11/27/18 10:26 Ordered Medication Orders Dextrose/Sodium Chloride (Dextrose 5%-1/2 Ns) 1,000 mls @ 100 mls/hr IV ASDIRECTED TWYLA Last Admin: 11/28/18 08:36 Dose: 100 mls/hr Infusion: 11/28/18 07:41 Dose: 100 mls/hr Admin: 11/27/18 21:41 Dose: 100 mls/hr Infusion: 11/27/18 21:18 Dose: 100 mls/hr Admin: 11/27/18 11:18 Dose: 100 mls/hr Ondansetron HCl (Zofran Odt) 4 mg PO Q6H PRN PRN Reason: nausea, able to take PO Pantoprazole Sodium (Protonix) 40 mg PO DAILY@0700 [facility] Last Admin: 11/28/18 06:24 Dose: 40 mg Admin: 11/27/18 11:41 Dose: 40 mg - Assessment Assessment (Free Text/Narrative):: 83 y/o lady with GI bleed after colonoscopy prep, likely diverticular bleed. Doing well and no evidence of continued bleeding. - Plan Plan (Free Text/Narrative):: - Recheck Hg at 1030 - If continued stable hemoglobin, will advance diet - clears as tolerated - d/c IVF - Likely discharge home today with follow up in 2 weeks Irlanda Prince MD General surgery
[2018-11-28 14:55] VITALS: BP 103/62
== END 2018-11-28 17:56 | disposition home or self-care (01) | DRG 379 ==
LOC: JD.SDS 07:46 → JD.MS 10:27
PROVIDERS: ADMIT Surgery; ATTEND Surgery
PROC: 0DBP8ZZ Excision of Rectum, Via Natural or Artificial Opening Endoscopic (ICD-10-PCS; principal; 2018-11-27)
PROC: 0DB78ZZ Excision of Stomach, Pylorus, Via Natural or Artificial Opening Endoscopic (ICD-10-PCS; principal; 2018-11-27)
PROC: 0DBL8ZZ Excision of Transverse Colon, Via Natural or Artificial Opening Endoscopic (ICD-10-PCS; principal; 2018-11-27)
DX: K57.31 Diverticulosis of large intestine without perforation or abscess with bleeding (principal); K92.2 Gastrointestinal hemorrhage, unspecified; K44.9 Diaphragmatic hernia without obstruction or gangrene; K57.90 Diverticulosis of intestine, part unspecified, without perforation or abscess without bleeding; K63.5 Polyp of colon; D12.8 Benign neoplasm of rectum; K21.9 Gastro-esophageal reflux disease without esophagitis; M41.9 Scoliosis, unspecified; H54.7 Unspecified visual loss; E78.00 Pure hypercholesterolemia, unspecified; I65.29 Occlusion and stenosis of unspecified carotid artery; M81.0 Age-related osteoporosis without current pathological fracture; E66.9 Obesity, unspecified; M19.90 Unspecified osteoarthritis, unspecified site; Z90.710 Acquired absence of both cervix and uterus; Z96.641 Presence of right artificial hip joint; Z96.659 Presence of unspecified artificial knee joint; Z79.899 Other long term (current) drug therapy
CPT/HCPCS: 43239; 45380; J2001 ×2; J2704 ×2; J7120; 36415; 85025; 85027; 86850; 86900; 86901; A9270-GY; J7042

== ENCOUNTER 2018-12-05 12:19 | Emergency (ER) | payer MEDICARE, BC ==
[2018-12-05] MEDS ORDERED: Sodium Chloride 0.9% 10 ML Syringe FLUSH PRN (12:50)
--- NOTE | 2018-12-05 12:51 | EDM.PDOC ---
ED HPI GENERAL MEDICAL PROBLEM - General Chief Complaint: Cardiovascular Problem Stated Complaint: LEGS AND FEET SWELLING Time Seen by Provider: 12/05/18 12:50 Source of Information: Reports: Patient History Limitations: Reports: No Limitations - History of Present Illness INITIAL COMMENTS - FREE TEXT/NARRATIVE: 83 year old female presents for evaluation and treatment of bilateral lower leg edema. Patient reports she has had edema for at least the last week. Patient was hospitalized last week following a complicated colonoscopy. She reports he hemoglobin dropped following the procedure. She has followed up with her surgeon but did not require any blood. Patient reports bilateral lower leg edema, minor dyspnea on exertion and shortness of breath. She denies any chest pain, pain in her legs, cough, fevers , chills, weight gain or orthopnea. PCP is Nidia Guevara. Patient reports a history of heart murmur and high cholesterol. No previous MIs or CHF. - Related Data Allergies Allergy/AdvReac Type Severity Reaction Status Date / Time No Known Allergies Allergy Verified 12/05/18 12:33 Home Meds: Home Meds Omeprazole 20 mg PO DAILY #14 cap.cr 12/02/16 [Rx] Calcium Carb & Citrate/Vit D3 [Citracal + D ER] 2 tab PO DAILY 10/16/18 [History ] Cholecalciferol (Vitamin D3) [Vitamin D3] 1,000 unit PO DAILY 10/16/18 [History] Ascorbic Acid [Vitamin C] 250 mg PO BEDTIME #30 tab.chew 10/19/18 [Rx] Ferrous Sulfate [Iron] 325 mg PO BEDTIME #30 tablet 10/19/18 [Rx] Furosemide [Lasix] 20 mg PO DAILY #7 tab 12/05/18 [Rx] Potassium Chloride 10 meq PO DAILY #7 tablet.er 12/05/18 [Rx] Past Medical History HEENT History: Reports: Impaired Vision Other HEENT History: excessive cerumen, glasses, dentures Cardiovascular History: Reports: Heart Murmur, High Cholesterol, Other (See Below) Other Cardiovascular History: carotid stenosis Respiratory History: Reports: None Gastrointestinal History: Reports: Colon Polyp, Diverticulosis, GI Bleed, Hiatal Hernia Other Gastrointestinal History: abdominal pain, tubular adenoma, rectal bleeding Genitourinary History: Reports: Pyelonephritis Other Genitourinary History: 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: Musculoskeletal History: Reports: Arthritis, Osteoporosis, Other (See Below) Other Musculoskeletal History: L knee pain, L knee OA, mild scoliosis Neurological History: Reports: Other (See Below) Other Neuro History: dizziness, scoliosis Psychiatric History: Reports: None Endocrine/Metabolic History: Reports: Obesity/BMI 30+ Hematologic History: Reports: None Immunologic History: Reports: None Oncologic (Cancer) History: Reports: None Dermatologic History: Reports: None - Infectious Disease History Infectious Disease History: Reports: Other (See Below) Other Infectious Disease History: pt reports that she doesnt remember if she hsd any of these - Past Surgical History Head Surgeries/Procedures: Reports: None HEENT Surgical History: Reports: None Cardiovascular Surgical History: Reports: None Respiratory Surgical History: Reports: None GI Surgical History: Reports: Colonoscopy, Other (See Below) Other GI Surgeries/Procedures: abdominal surgery Female Surgical History: Reports: None, Hysterectomy Endocrine Surgical History: Reports: None Neurological Surgical History: Reports: None Musculoskeletal Surgical History: Reports: Hip Replacement, Knee Replacement Other Musculoskeletal Surgeries/Procedures:: Rt hip replacement Oncologic Surgical History: Reports: None Dermatological Surgical History: Reports: None Social & Family History - Family History Family Medical History: Noncontributory HEENT: Reports: None Cardiac: Reports: CAD Endocrine/Metabolic: Reports: Diabetes, type II - Tobacco Use Smoking Status *Q: Never Smoker - Caffeine Use Caffeine Use: Reports: Coffee, Tea Other Caffeine Use: 2 cups of coffee per day - Recreational Drug Use Recreational Drug Use: No ED ROS GENERAL - Review of Systems Review Of Systems: See Below Constitutional: Denies: Fever, Chills, Weight Gain Respiratory: Reports: Shortness of Breath. Denies: Cough Cardiovascular: Reports: Dyspnea on Exertion (minimal ), Edema. Denies: Chest Pain, Orthopnea Musculoskeletal: Denies: Leg Pain ED EXAM, GENERAL - Physical Exam Exam: See Below Exam Limited By: No Limitations General Appearance: Alert, WD/WN, No Apparent Distress Nose: Normal Inspection Throat/Mouth: Normal Inspection, Normal Voice, No Airway Compromise Respiratory/Chest: No Respiratory Distress, Crackles (bilateral lung bases) Cardiovascular: Normal Peripheral Pulses, Regular Rate, Rhythm, Systolic Murmur GI/Abdominal: Normal Bowel Sounds, Soft, Non-Tender Neurological: Alert, Oriented, Normal Cognition Psychiatric: Normal Affect, Normal Mood Skin Exam: Warm, Dry, Normal Color EKG INTERPRETATION EKG Date: 12/05/18 Time: 12:58 Rhythm: NSR Rate (Beats/Min): 76 [place]: Normal P-Wave: Present QRS: Normal ST-T: Normal QT: Normal EKG Interpretation Comments: NSR at 76 bpm. No acute changes. Course - Vital Signs Last Recorded V/S: Last Vital Signs Temp 98.2 F 12/05/18 20:43 Pulse 78 12/05/18 20:43 Resp 16 12/05/18 20:43 BP 124/68 12/05/18 20:43 Pulse Ox 98 12/05/18 20:43 - Orders/Labs/Meds Labs: Laboratory Tests 12/05/18 12/05/18 12/05/18 Range/Units 13:26 13:26 13:26 WBC 3.67 L (3.98-10.04) K/mm3 RBC 2.30 L (3.98-5.22) M/mm3 Hgb 6.9 L* D (11.2-15.7) gm/L Hct 23.0 L (34.1-44.9) % MCV 100.0 H D (79.4-94.8) fl MCH 30.0 (25.6-32.2) pg MCHC 30.0 L (32.2-35.5) g/dl RDW Std Deviation 60.8 H (36.4-46.3) fL Plt Count 279 (182-369) K/mm3 MPV 9.4 (9.4-12.3) fl Neut % (Auto) 47.4 (34.0-71.1) % Lymph % (Auto) 35.7 (19.3-51.7) % [place] % (Auto) 12.0 (4.7-12.5) % Eos % (Auto) 4.1 (0.7-5.8) Baso % (Auto) 0.8 (0.1-1.2) % Neut # (Auto) 1.74 (1.56-6.13) K/mm3 Lymph # (Auto) 1.31 (1.18-3.74) K/mm3 [place] # (Auto) 0.44 H (0.24-0.36) K/mm3 Eos # (Auto) 0.15 (0.04-0.36) K/mm3 Baso # (Auto) 0.03 (0.01-0.08) K/mm3 Manual Slide Review Abnormal smear Sodium 143 (136-145) mEq/L Potassium 4.0 (3.5-5.1) mEq/L Chloride 109 H (98-107) mEq/L Carbon Dioxide 26 (21-32) mEq/L Anion Gap 12.0 (5-15) BUN 14 (7-18) mg/dL Creatinine 0.8 (0.55-1.02) mg/dL Est Cr Clr Drug Dosing 42.14 mL/min Estimated GFR (MDRD) > 60 (>60) mL/min BUN/Creatinine Ratio 17.5 (14-18) Glucose 108 (83-115) mg/dL Calcium 8.7 (8.5-10.1) mg/dL Total Bilirubin 0.1 L (0.2-1.0) mg/dL AST 18 (15-37) U/L ALT 22 (14-59) U/L Alkaline Phosphatase 79 (46-116) U/L NT-Pro-B Natriuret Pep 795 H (0-450) pg/mL Total Protein 5.3 L (6.4-8.2) g/dl Albumin 2.8 L (3.4-5.0) g/dl Globulin 2.5 gm/dL Albumin/Globulin Ratio 1.1 (1-2) Blood Type Gel Antibody Screen Crossmatch 12/05/18 Range/Units 13:26 WBC (3.98-10.04) K/mm3 RBC (3.98-5.22) M/mm3 Hgb (11.2-15.7) gm/L Hct (34.1-44.9) % MCV (79.4-94.8) fl MCH (25.6-32.2) pg MCHC (32.2-35.5) g/dl RDW Std Deviation (36.4-46.3) fL Plt Count (182-369) K/mm3 MPV (9.4-12.3) fl Neut % (Auto) (34.0-71.1) % Lymph % (Auto) (19.3-51.7) % [place] % (Auto) (4.7-12.5) % Eos % (Auto) (0.7-5.8) Baso % (Auto) (0.1-1.2) % Neut # (Auto) (1.56-6.13) K/mm3 Lymph # (Auto) (1.18-3.74) K/mm3 [place] # (Auto) (0.24-0.36) K/mm3 Eos # (Auto) (0.04-0.36) K/mm3 Baso # (Auto) (0.01-0.08) K/mm3 Manual Slide Review Sodium (136-145) mEq/L Potassium (3.5-5.1) mEq/L Chloride (98-107) mEq/L Carbon Dioxide (21-32) mEq/L Anion Gap (5-15) BUN (7-18) mg/dL Creatinine (0.55-1.02) mg/dL Est Cr Clr Drug Dosing mL/min Estimated GFR (MDRD) (>60) mL/min BUN/Creatinine Ratio (14-18) Glucose (83-115) mg/dL Calcium (8.5-10.1) mg/dL Total Bilirubin (0.2-1.0) mg/dL AST (15-37) U/L ALT (14-59) U/L Alkaline Phosphatase (46-116) U/L NT-Pro-B Natriuret Pep (0-450) pg/mL Total Protein (6.4-8.2) g/dl Albumin (3.4-5.0) g/dl Globulin gm/dL Albumin/Globulin Ratio (1-2) Blood Type O POSITIVE Gel Antibody Screen Negative Crossmatch See Detail Meds: Medications Discontinued Medications Generic Name Dose Route Start Last Admin Trade Name Freq PRN Reason Stop Dose Admin Furosemide 20 mg 12/05/18 13:59 12/05/18 18:14 Lasix IVPUSH 12/05/18 14:00 20 mg ONETIME ONE Administration Furosemide Confirm 12/05/18 17:59 12/05/18 18:15 Lasix Administered 12/05/18 18:00 Not Given Dose 20 mg .ROUTE .STK-MED ONE Furosemide 20 mg 12/05/18 18:43 12/05/18 20:40 Lasix IVPUSH 12/05/18 18:44 20 mg ONETIME ONE Administration Sodium Chloride 1,000 mls @ 50 mls/hr 12/05/18 15:30 12/05/18 15:42 Normal Saline IV 50 mls/hr ASDIRECTED TWYLA Administration Sodium Chloride 10 ml 12/05/18 12:50 12/05/18 13:26 Saline Flush FLUSH 10 ml ASDIRECTED PRN Administration Keep Vein Open - Radiology Interpretation Free Text/Narrative:: chest xray shows slight cardiomegaly. No diffuse pulmonary vascular congestion. Formal read pending. - Re-Assessments/Exams Free Text/Narrative Re-Assessment/Exam: 12/05/18 19:24 Reviewed the labs with the patient. She has received 2 units of blood with lasix in between doses. she tolerated the transfusion well. No complications. I will have her follow-up with her PCP within the next week for a recheck of her symptoms. Discharge instructions as documented. Departure - Departure Time of Disposition: 19:45 Disposition: Home, Self-Care 01 Reason for Transfer *Q: Other Condition: Fair Clinical Impression: Edema Anemia Qualifiers: Anemia type: iron deficiency Iron deficiency anemia type: chronic blood loss Qualified Code(s): D50.0 - Iron deficiency anemia secondary to blood loss ( chronic) Prescriptions: Furosemide [Lasix] 20 mg PO DAILY #7 tab Potassium Chloride 10 meq PO DAILY #7 tablet.er Instructions: Anemia, Edema Referrals: Nidia Guevara PA-C [Primary Care Provider] - Forms: ED Department Discharge Additional Instructions: Follow-up with PCP this week for a recheck of your symptoms. Start the lasix 1 tab PO daily. Take in the morning. Lasix can lower your potassium, start the potassium 1 tab PO daily. You were given lasix in the ER today, start these prescriptions tomorrow. Please return to the ER should your symptoms change or worsen.
[2018-12-05] MEDS ORDERED: Furosemide 20 MG/2 ML VIAL IVPUSH ONE ×2 (13:59→18:43)
[2018-12-05] MEDS ORDERED: Sodium Chloride 0.9% 1,000 ML IV SCH (15:30)
[2018-12-05] MEDS ORDERED: Furosemide 20 MG/2 ML VIAL ONE (17:59)
[2018-12-05 20:43] VITALS: BP 124/68
--- NOTE | 2018-12-08 08:30 | CR ---
Chest: PA and lateral views of the chest are obtained. Comparison: Prior chest x-ray of 08/11/17. Small hiatal hernia is noted. Heart size at the upper limits of normal. Upper mediastinum is normal. Lungs are clear without acute parenchymal change. Diaphragms are flattened on the lateral view compatible with emphysematous change. Scattered degenerative change is noted within the spine. Impression: 1. Emphysematous changes and other incidental findings. 2. Nothing acute is definitely appreciated. Diagnostic code #2
== END 2018-12-05 20:58 | disposition home or self-care (01) ==
LOC: JD.ED 12:19
DX: R60.0 Localized edema (principal); D50.0 Iron deficiency anemia secondary to blood loss (chronic); E66.9 Obesity, unspecified; E78.00 Pure hypercholesterolemia, unspecified; R93.1 Abnormal findings on diagnostic imaging of heart and coronary circulation; Z79.899 Other long term (current) drug therapy; Z68.32 Body mass index [BMI] 32.0-32.9, adult
CPT/HCPCS: 36415; 36430; 71046; 80053; 83880; 85025; 86850; 86900; 86901; 86922; 93005; 96361; 96374; 96376; 99285; A9270; J7040; P9016; 93010; 99283

== ENCOUNTER 2019-06-17 08:09 | Inpatient (IN) | payer MEDICARE, BC ==
[2019-06-17] MEDS ORDERED: Bupivacaine 0.5%/EPINEPHrine 1:200,000 50 ML MDV ONE (10:11)
--- NOTE | 2019-06-17 11:10 | PCM.PREANE ---
Preanesthetic Assessment - Anesthesia/Transfusion/Family Hx Anesthesia History: Prior Anesthesia Without Reaction Transfusion History: Unknown Intubation History: Unknown - Review of Systems General: No Symptoms Pulmonary: No Symptoms Cardiovascular: No Symptoms Gastrointestinal: No Symptoms Neurological: No Symptoms Other: Reports: None - Physical Assessment NPO Status Date: 06/16/19 NPO Status Time: 18:30 Vital Signs: Last Vital Signs Temp 98.4 F 06/17/19 10:00 Pulse 76 06/17/19 10:00 Resp 18 06/17/19 10:00 BP 131/71 06/17/19 10:05 Pulse Ox 96 06/17/19 10:00 Height: 1.55 m Weight: 85.411 kg ASA Class: 3 Mental Status: Alert & Oriented x3 Airway Class: Mallampati = 3 Dentition: Reports: Edentulous Thyro-Mental Finger Breadths: 3 Mouth Opening Finger Breadths: 3 ROM/Head Extension: Limited/Partial Lungs: Clear to Auscultation, Normal Respiratory Effort Cardiovascular: Regular Rate, Regular Rhythm - Lab Values: Laboratory Last Values Sodium 139 mEq/L (136-145) 06/17/19 10:15 Potassium 4.0 mEq/L (3.5-5.1) 06/17/19 10:15 Chloride 106 mEq/L (98-107) 06/17/19 10:15 Carbon Dioxide 24 mEq/L (21-32) 06/17/19 10:15 Anion Gap 13.0 (5-15) 06/17/19 10:15 BUN 9 mg/dL (7-18) 06/17/19 10:15 Creatinine 0.7 mg/dL (0.55-1.02) 06/17/19 10:15 Est Cr Clr Drug Dosing 45.14 mL/min 06/17/19 10:15 Estimated GFR (MDRD) > 60 mL/min (>60) 06/17/19 10:15 BUN/Creatinine Ratio 12.9 (14-18) L 06/17/19 10:15 Glucose 107 mg/dL (83-115) 06/17/19 10:15 Calcium 8.6 mg/dL (8.5-10.1) 06/17/19 10:15 Total Bilirubin 0.5 mg/dL (0.2-1.0) 06/17/19 10:15 AST 17 U/L (15-37) 06/17/19 10:15 ALT 23 U/L (14-59) 06/17/19 10:15 Alkaline Phosphatase 93 U/L (46-116) 06/17/19 10:15 Total Protein 6.6 g/dl (6.4-8.2) 06/17/19 10:15 Albumin 3.3 g/dl (3.4-5.0) L 06/17/19 10:15 Globulin 3.3 gm/dL 06/17/19 10:15 Albumin/Globulin Ratio 1.0 (1-2) 06/17/19 10:15 - Allergies Allergies/Adverse Reactions: Allergies Allergy/AdvReac Type Severity Reaction Status Date / Time No Known Allergies Allergy Verified 06/17/19 10:37 - Acknowledgements Anesthesia Type Planned: General Anesthesia Pt an Appropriate Candidate for the Planned Anesthesia: Yes Alternatives and Risks of Anesthesia Discussed w Pt/Guardian: Yes Pt/Guardian Understands and Agrees with Anesthesia Plan: Yes PreAnesthesia Questionnaire HEENT History: Reports: Impaired Vision Other HEENT History: excessive cerumen, glasses, dentures Cardiovascular History: Reports: Heart Murmur, High Cholesterol, Other (See Below) Other Cardiovascular History: carotid stenosis Respiratory History: Reports: Pneumonia, Recurrent, Other (See Below) Other Respiratory History: shortness of breath, wheezing with ambulation Gastrointestinal History: Reports: Colon Polyp, Diverticulosis, GI Bleed, Hiatal Hernia Other Gastrointestinal History: abdominal pain, tubular adenoma, rectal bleeding Genitourinary History: Reports: Pyelonephritis, UTI, Recurrent Other Genitourinary History: UTI Musculoskeletal History: Reports: Arthritis, Osteoarthritis, Osteoporosis, Other (See Below) Other Musculoskeletal History: L knee pain, L knee OA, mild scoliosis Neurological History: Reports: Other (See Below) Other Neuro History: dizziness, scoliosis Endocrine/Metabolic History: Reports: Obesity/BMI 30+ Hematologic History: Reports: Anemia - Infectious Disease History Infectious Disease History: Reports: Other (See Below) Other Infectious Disease History: pt reports that she doesnt remember if she hsd any of these - Past Surgical History Head Surgeries/Procedures: Reports: None HEENT Surgical History: Reports: Cataract Surgery Cardiovascular Surgical History: Reports: None Respiratory Surgical History: Reports: None GI Surgical History: Reports: Colonoscopy, Other (See Below) Other GI Surgeries/Procedures: abdominal surgery Female Surgical History: Reports: None, Hysterectomy Endocrine Surgical History: Reports: None Neurological Surgical History: Reports: None Musculoskeletal Surgical History: Reports: Hip Replacement, Knee Replacement ( bilateral) Other Musculoskeletal Surgeries/Procedures:: Rt hip replacement Oncologic Surgical History: Reports: None Dermatological Surgical History: Reports: None - SUBSTANCE USE Smoking Status *Q: Never Smoker Second Hand Smoke Exposure: No Recreational Drug Use History: No - HOME MEDS Home Medications: Home Meds Omeprazole 20 mg PO DAILY #14 cap.cr 12/02/16 [Rx] Calcium Carb, Citrate/Vit D3 [Citracal + D ER] 2 tab PO DAILY 10/16/18 [History] Cholecalciferol (Vitamin D3) [Vitamin D3] 1,000 unit PO DAILY 10/16/18 [History] Denosumab [Prolia] 60 mg SQ ASDIRECTED 06/16/19 [History] - CURRENT (IN HOUSE) MEDS Current Meds: Current Medications Lactated Ringer's (Ringers, Lactated) 1,000 mls @ 125 mls/hr IV ASDIRECTED TWYLA Stop: 06/17/19 23:00 Last Admin: 06/17/19 10:05 Dose: 125 mls/hr Lidocaine/Sodium Bicarbonate (Buffered Lidocaine 1% In Ns 8.4%) 0.25 ml IDERM ONETIME PRN PRN Reason: Prior to IV Start Stop: 06/17/19 23:00 Last Admin: 06/17/19 10:05 Dose: 0.25 ml Sodium Chloride (Saline Flush) 10 ml FLUSH ASDIRECTED PRN PRN Reason: Keep Vein Open Stop: 06/17/19 23:00 Discontinued Medications Bupivacaine HCl/Epinephrine Bitart (Marcaine 0.5%/Epinephrine 1:200,000) Confirm Administered Dose 50 ml .ROUTE .STK-MED ONE Stop: 06/17/19 10:12
[2019-06-17] MEDS ORDERED: Midazolam 1 MG/ML 2 ML SDV ONE (11:23)
[2019-06-17] MEDS ORDERED: fentaNYL 250 MCG/5 ML SDV ONE (11:23)
[2019-06-17] MEDS ORDERED: Rocuronium 50 MG/5 ML Vial ONE (11:23)
[2019-06-17] MEDS ORDERED: Etomidate 2 MG/ML 20 ML SDV IVPUSH ONE (11:25)
[2019-06-17] MEDS ORDERED: Ondansetron 4 MG/2 ML SDV ONE ×2 (11:25→15:12)
[2019-06-17] MEDS ORDERED: Lidocaine 1% 4 ML ONE (11:25)
[2019-06-17] MEDS ORDERED: ceFAZolin 1 GM Vial ONE (11:52)
[2019-06-17] MEDS ORDERED: ePHEDrine/Normal Saline 25 MG/5 ML Syringe ONE (12:01)
[2019-06-17] MEDS ORDERED: Lactated Ringers 1,000 ML ONE (12:38)
[2019-06-17] MEDS ORDERED: Metoprolol Tartrate 5 MG/5 ML SDV ONE (12:54)
[2019-06-17] MEDS ORDERED: Rocuronium 100 MG/10 ML MDV ONE (13:11)
[2019-06-17] MEDS ORDERED: HYDROmorphone 0.5 MG/0.5 ML Syringe ONE (14:22)
[2019-06-17] MEDS ORDERED: fentaNYL 100 MCG/2 ML SDV IVPUSH PRN (14:41)
[2019-06-17] MEDS ORDERED: Ondansetron 4 MG/2 ML SDV IVPUSH PRN (14:41)
[2019-06-17] MEDS ORDERED: fentaNYL 100 MCG/2 ML SDV ONE (15:44)
[2019-06-17] MEDS ORDERED: Lactated Ringers 1,000 ML IV SCH (16:00)
[2019-06-17] MEDS ORDERED: Acetaminophen 325 MG Tab PO SCH (16:00)
[2019-06-17] MEDS ORDERED: Heparin Sodium 5,000 Units/ML Vial SUBCUT SCH (16:00)
--- NOTE | 2019-06-17 16:14 | PCM.POSTAN ---
POST ANESTHESIA ASSESSMENT - MENTAL STATUS Mental Status: Somnolent - VITAL SIGNS Vital Signs: Last Vital Signs Temp 96.8 F 06/17/19 16:00 Pulse 75 06/17/19 16:00 Resp 15 06/17/19 16:00 BP 130/72 06/17/19 16:00 Pulse Ox 96 06/17/19 16:00 - RESPIRATORY Respiratory Status: Respiratory Rate WNL, Airway Patent, O2 Saturation Stable, Supplemental Oxygen - CARDIOVASCULAR CV Status: Pulse Rate WNL, Blood Pressure Stable - GASTROINTESTINAL GI Status: No Symptoms - PAIN Pain Score: 0 - POST OP HYDRATION Hydration Status: Adequate & Stable
--- NOTE | 2019-06-17 16:24 | PCM.PRNOTE ---
- Free Text/Narrative Note: Date: 06/17/2019 Surgeon: Bryan Llamas MD Pre-operative diagnosis: incarcerated Spigelian hernia, recurrent hiatal hernia Operation: laparoscopic reduction of hiatal hernia with primary closure of hiatus, upper endoscopy, laparoscopic intraperitoneal onlay mesh repair of Spigelian hernia Antibiotics: 2 g ancef IV DVT ppx: SCD EBL: 100 cc Findings: hiatal hernia with evidence of failed prior repair. No fundoplication identified. after reduction and mobilization of the esophagus, primary crural closure was performed. Endoscopy was then performed which showed EG junction was infradiaphragmatic. No clear fundoplication was appreciated. The Spigelian hernia had incarcerated ascending colon. This was reduced successfully, and a 10 x 15 cm elliptical Ventralight coated mesh was placed as an intraperitoneal onlay. Detailed Report: Patient was taken to the operating room and placed supine on the operating table. Timeout was performed. General endotracheal anesthesia was administered. A Moore catheter was placed. The patient was then positioned in low lithotomy position. SCDs were applied. The abdomen was prepped and draped in usual sterile fashion. A small incision was made in the left upper quadrant and a Veress needle inserted into the intraperitoneal cavity. The abdomen was insufflated to 15 mmHg. A supraumbilical incision just off midline to the left was made with the knife, and air was able to be aspirated with a needle and syringe at the site. A 12 mm bladed trocar was inserted at the site, and the 10 mm 30 degree laparoscope was inserted. The Veress needle did not appear to injure any surrounding structures. This was removed, and additional ports were placed. A 5 mm port was placed left lateral side, just inferior to the costal margin. A 5 mm port for the liver retractor was placed in the right upper quadrant. The triangular liver retractor was inserted through this port, and used to elevate the left lobe of the liver. Ports for the surgeon's hands were then placed, a 12 mm port at the midclavicular line just inferior to the costal margin, and a 5 mm port for the left hand just off of midline. There was evidence of a hiatal hernia, with visible Ethibond sutures indicating failed prior repair. The stomach was easily reduced into the abdominal cavity. Careful dissection proceeded, freeing the GE junction up from surrounding scar tissue. The crural muscle was densely adherent. Short gastric vessels were taken with the LigaSure, going from the midportion of the greater curvature the stomach up towards the angle of His. Once the distal esophagus was freed circumferentially, a grasper was passed posteriorly towards the spleen, and 1/4 inch Rina drain was brought around the GE junction and secured with an Endoloop. This was used to aid with retraction during dissection. The esophagus was mobilized as far as it was safely possible. 0 Ethibond suture with pledgets was used to close the diaphragm; 2 posterior stitches were placed , and 1 anterior to the esophagus. At this point, upper endoscopy was performed to confirm that there was no injury to the esophagus or stomach. Endoscopy appeared normal, there did not appear to be evidence of an intact fundoplication from prior surgery. Given that the operative report from the prior operation was not available to us, I opted to close the diaphragm without fundoplication, to avoid inadvertent injury given the difficulty with dissection for reoperative repair. Next, we turned our attention to the spigelian hernia. Traction on the incarcerated ascending colon and dissection with the LigaSure freed up the herniated contents. The defect measured 3 x 3 cm. An elliptical 10 x 15 cm ventral light mesh was then opened and prepared for placement. 0 Vicryl suture was placed at the lateralmost points, and superior and inferior most points, to serve as trans-fascial sutures holding the mesh in place. The mesh was rolled up and brought in through the 12 mm port. The coated side of the mesh faced inward towards the viscera. Previously marked sites for trans-fascial sutures, small aixa incision was made with the 11 blade, and laparoscopic suture passer passed transabdominally at the 4 sutured sites of the mesh used to bring the suture across the fascia. The stitches were tied down, being the mesh firm against the abdominal wall. The mesh laid flat and was in good position covering the hernia defect. The laparoscopic secure strap was used to tack the mesh to the abdominal wall at the spaces between the 4 trans-fascial sutures. The mesh appeared to lie in good position. The 12 mm ports were removed, and the laparoscopic suture passer was used to place Vicryl trans-fascial sutures for closure. The peritoneum was then released, and all ports removed. Incision sites were closed with Vicryl suture at the level of skin. All wounds were dressed with Dermabond. The patient tolerated the procedure well. Bryan Llamas MD General Surgery
[2019-06-17] MEDS: Morphine 2 MG/ML Syringe IVPUSH PRN ×2 (17:19→21:40)
[2019-06-17] MEDS: Heparin Sodium 5,000 Units/ML Vial SUBCUT SCH (21:40)
[2019-06-17] MEDS: Acetaminophen 325 MG Tab PO SCH (21:41)
[2019-06-18] MEDS: Morphine 2 MG/ML Syringe IVPUSH PRN (04:04)
[2019-06-18] MEDS: Heparin Sodium 5,000 Units/ML Vial SUBCUT SCH ×3 (04:04→20:40)
[2019-06-18] MEDS: Acetaminophen 325 MG Tab PO SCH ×3 (04:18→20:41)
[2019-06-18] MEDS ORDERED: oxyCODONE 5 MG Tab PO PRN (08:30)
--- NOTE | 2019-06-18 09:08 | PCM48HPAN ---
Post Anesthesia Note - EVALUATION WITHIN 48HRS OF ANESTHETIC Vital Signs in Normal Range: Yes Patient Participated in Evaluation: Yes Respiratory Function Stable: Yes (patient requiring O2 at night but no when awake) Airway Patent: Yes Cardiovascular Function Stable: Yes Hydration Status Stable: Yes Pain Control Satisfactory: Yes (patient is mildy uncomfortable but not needing more medication per patient) Nausea and Vomiting Control Satisfactory: Yes Mental Status Recovered: Yes Vital Signs: Last Vital Signs Temp 36.7 C 06/18/19 07:28 Pulse 82 06/18/19 07:28 Resp 24 H 06/18/19 07:28 BP 138/70 06/18/19 07:28 Pulse Ox 98 06/18/19 08:07 - COMMENTS/OBSERVATIONS Free Text/Narrative:: Patient sitting up in bed with RN at bedside. Mild discomfort that comes towards the end of effective life of pain medications, however patient denies needing additional medication at this time. No concerns at this time. Recovering as expected.
[2019-06-18] MEDS: oxyCODONE 5 MG Tab PO PRN (09:18)
[2019-06-18] MEDS: Ondansetron 4 MG Tab.DIS PO PRN ×2 (09:18→15:47)
--- NOTE | 2019-06-18 14:09 | PCM.SN ---
- Free Text/Narrative Note: Surgery Progress Note: S/P laparoscopic redo hiatal hernia repair and mesh repair of Spigelian hernia 06/17. S: Nauseated, having trouble keeping liquids down, having epigastric pain. No acute events overnight. O: AF-VSS, adequate urine output, labs this morning unremarkable. Gen: awake and alert, no distress Pulm: breathing comfortably on room air CV: RRR Abd: distended, appropriately tender, incisions c/d/i : frias catheter in place MSK: moves all extremities freely A/P: Overall looks good s/p hiatal and Spigelian hernia repair yesterday. Has some bloating and nausea. -d/c morphine, start oxycodone prn -abdon -GardeniaOB, IS -remove frias, f/u trial of void -zofran prn, continue clear liquids for now -heparin dvt ppx -anticipate discharge home over the weekend
[2019-06-18] MEDS ORDERED: Promethazine 12.5 MG in Sodium Chloride 0.9% 50 ML IV PRN (14:37)
[2019-06-18] MEDS: Pantoprazole 40 MG Tab.CR PO SCH (15:47)
[2019-06-18] MEDS ORDERED: Dextrose 5%-0.45% NaCl 1,000 ML IV SCH (16:45)
[2019-06-19] MEDS: oxyCODONE 5 MG Tab PO PRN (01:25)
[2019-06-19] MEDS: Acetaminophen 325 MG Tab PO SCH ×3 (05:55→21:33)
[2019-06-19] MEDS: Heparin Sodium 5,000 Units/ML Vial SUBCUT SCH ×3 (05:56→21:33)
--- NOTE | 2019-06-19 08:09 | PCM.SN ---
- Free Text/Narrative Note: Surgery Progress Note S: POD 2 s/p lap hiatal and Spigelian hernia repair. Improved since yesterday with better pain control and PO tolerance. Has intermittent O2 desats overnight to mid 80% range requiring 2 L NC, now on 1 L with SpO2 95%, improving with IS. Voiding. No flatus or BM. Evaluated by physical therapy and deemed fit for discharge to home with front wheel walker, which the patient has at home. O: AF-VSS adequate UOP Gen: sitting in chair, no distress HEENT: NC in place Pulm: non-labored respirations CV: RRR Abd: no distention, appropriately tender, incisions c/d/i with some minor ecchymosis A: POD 2, recovering well. Still requiring minimal O2 supplementation to maintain saturation > 92%. P: Alison add miralax, prn simethicone Full liquid diet continue OOB, IS, pulmonary toilet anticipate one more night in hospital for continued monitoring and pulmonary toilet, with discharge to home tomorrow if continuing to do well.
[2019-06-19] MEDS ORDERED: Simethicone 80 MG Tab.Chew PO PRN (08:11)
[2019-06-19] MEDS: Pantoprazole 40 MG Tab.CR PO SCH (08:38)
[2019-06-19] MEDS: Polyethylene Glycol 3350 Powder 17 GM Packet PO SCH ×2 (08:38→21:32)
[2019-06-19] MEDS ORDERED: Calcium Carbonate 500 MG Tab.Chew PO PRN (16:53)
[2019-06-20] MEDS: Heparin Sodium 5,000 Units/ML Vial SUBCUT SCH (04:26)
[2019-06-20] MEDS: Acetaminophen 325 MG Tab PO SCH (04:27)
[2019-06-20 07:51] VITALS: BP 114/64; PULSE 89
--- NOTE | 2019-06-20 08:35 | PCM.DCSUM1 ---
Discharge Summary - Hospital Course Free Text/Narrative:: Admitted following scheduled laparoscopic ventral hernia repair and hiatal hernia repair HPI Initial Comments: The patient presented to clinic with complaint of RLQ bulge, found to be a Spigelian hernia on CT scan with incarcerated ascending colon. She was noted at the time to also have a sizeable hiatal hernia, but the patient denies symptoms related to this and did not wish to have the hernia fixed when we initially met in clinic. On the day of surgery, she reported symptoms associated with the hiatal hernia including shortness of breath and expressed desire to have both hernias fixed. It was apparent, despite no documentation available, that a prior repair had been performed once in the operating room. I freed up and reduced the stomach and mobilized the esophagus, and closed the hiatus with interrupted pledgeted ethibond suture. Endoscopy was performed to ensure no full thickness injury had occurred during dissection. I did not place any mesh or perform fundoplication as there was a fair amount of scar tissue and I did not have access to the original operative report to know what if any fundoplication had been done. The ventral hernia was repair with intraperitoneal onlay mesh placement without difficulty. She tolerated the operation well and had a fairly uneventful post-operative recovery. She was deemed fit for discharge to home with rolling walker after PT/OT eval on post- operative day 3. Diagnosis: Stroke: No - Discharge Data Discharge Date: 06/20/19 Discharge Disposition: Home, Self-Care 01 Condition: Good - Referral to Home Health Primary Care Physician: Nidia Guevara PA-C - Patient Summary/Data Consults: Consultations 06/18/19 14:38 Consult to Occupational Therapy [OT Evaluation and Treatment] [CONS] Routine PT Evaluation and Treatment [CONS] Routine - Patient Instructions Diet: Full Liquid Diet Diet, Other: advance to soft diet on 06/24/2019 Activity: Cough & Deep Breathe, No Lifting Over 10 Pounds Activity, Other: Continue incentive spirometry at home Showering/Bathing: May Shower Wound/Incision Care: Keep Operative Site/Wound Site Clean and Dry Notify Provider of: Fever, Increased Pain, Swelling and Redness, Drainage, Nausea and/or Vomiting - Discharge Plan *PRESCRIPTION DRUG MONITORING PROGRAM REVIEWED*: Not Applicable *COPY OF PRESCRIPTION DRUG MONITORING REPORT IN PATIENT LUCIE: Not Applicable Prescriptions/Med Rec: Ondansetron [Zofran ODT] 4 mg PO Q6H PRN #20 tab.dis PRN Reason: Nausea oxyCODONE 5 mg PO Q4H PRN #20 tab PRN Reason: Pain Promethazine [Phenadoz] 12.5 mg RECTAL Q8H PRN #5 supp PRN Reason: Nausea Home Medications: Home Meds Omeprazole 20 mg PO DAILY #14 cap.cr 12/02/16 [Rx] Calcium Carb, Citrate/Vit D3 [Citracal + D ER] 2 tab PO DAILY 10/16/18 [History] Cholecalciferol (Vitamin D3) [Vitamin D3] 1,000 unit PO DAILY 10/16/18 [History] Denosumab [Prolia] 60 mg SQ ASDIRECTED 06/16/19 [History] Ferrous Sulfate [Iron] 1 tab PO DAILY 06/17/19 [History] Ondansetron [Zofran ODT] 4 mg PO Q6H PRN #20 tab.dis 06/20/19 [Rx] Promethazine [Phenadoz] 12.5 mg RECTAL Q8H PRN #5 supp 06/20/19 [Rx] oxyCODONE 5 mg PO Q4H PRN #20 tab 06/20/19 [Rx] Oxygen Therapy Mode: Room Air Patient Handouts: Hernia, Adult, [id number], Laparoscopic Ventral Hernia Repair, Care After, Soft-Food Eating Plan, Full Liquid Diet Referrals: Nidia Guevara PA-C [Primary Care Provider] - Bryan Llamas MD [Physician] - - Discharge Summary/Plan Comment DC Time >30 min.: Yes - Patient Data Vitals - Most Recent: Last Vital Signs Temp 36.6 C 06/20/19 07:03 Pulse 89 06/20/19 07:03 Resp 17 06/20/19 07:03 BP 114/64 06/20/19 07:03 Pulse Ox 92 L 06/20/19 07:03 Weight - Most Recent: 87.634 kg I&O - Last 24 hours: Intake & Output 06/19/19 06/20/19 06/20/19 22:59 06:59 14:59 Intake Total 740 300 Output Total 350 1050 Balance 390 -750 Med Orders - Current: Current Medications Acetaminophen (Tylenol) 975 mg PO Q8H TWYLA Last Admin: 06/20/19 04:27 Dose: 975 mg Calcium Carbonate/Glycine (Tums) 500 mg PO Q2HR PRN PRN Reason: Indigestion Last Admin: 06/19/19 17:40 Dose: 500 mg Heparin Sodium (Porcine) (Heparin Sodium) 5,000 units SUBCUT Q8H [facility] Last Admin: 06/20/19 04:26 Dose: 5,000 units Promethazine HCl 12.5 mg/ (Sodium Chloride) 50.5 mls @ 100 mls/hr IV Q6H PRN PRN Reason: Nausea Ondansetron HCl (Zofran Odt) 4 mg PO Q6H PRN PRN Reason: Nausea/Vomiting Last Admin: 06/18/19 15:47 Dose: 4 mg Oxycodone HCl (Oxycodone) 5 mg PO Q4H PRN PRN Reason: Pain (moderate 4-6) Last Admin: 06/19/19 01:25 Dose: 5 mg Pantoprazole Sodium (Protonix) 40 mg PO DAILY [facility] Last Admin: 06/19/19 08:38 Dose: 40 mg Polyethylene Glycol (Miralax) 17 gm PO BID [facility] Last Admin: 06/19/19 21:32 Dose: 17 gm Simethicone (Simethicone) 80 mg PO Q4H PRN PRN Reason: Gas Last Admin: 06/19/19 11:10 Dose: 80 mg Discontinued Medications Acetaminophen (Tylenol) 975 mg PO Q8H [facility] Last Admin: 06/17/19 21:52 Dose: Not Given Bupivacaine HCl/Epinephrine Bitart (Marcaine 0.5%/Epinephrine 1:200,000) Confirm Administered Dose 50 ml .ROUTE .STK-MED ONE Stop: 06/17/19 10:12 Last Admin: 06/17/19 11:20 Dose: 26 ml Cefazolin Sodium (Ancef) Confirm Administered Dose 2 gm .ROUTE .STK-MED ONE Stop: 06/17/19 11:53 Ephedrine Sulfate (Ephedrine In Ns) Confirm Administered Dose 25 mg .ROUTE .STK- MED ONE Stop: 06/17/19 12:02 Etomidate (Amidate) Confirm Administered Dose 40 mg IVPUSH .STK-MED ONE Stop: 06/17/19 11:26 Fentanyl (Sublimaze) Confirm Administered Dose 250 mcg .ROUTE .STK-MED ONE Stop: 06/17/19 11:24 Fentanyl (Sublimaze) 25 mcg IVPUSH Q5M PRN PRN Reason: Pain Stop: 06/17/19 17:00 Fentanyl (Sublimaze) Confirm Administered Dose 100 mcg .ROUTE .STK-MED ONE Stop: 06/17/19 15:45 Heparin Sodium (Porcine) (Heparin Sodium) 5,000 units SUBCUT Q8H [facility] Last Admin: 06/17/19 21:52 Dose: Not Given Hydromorphone HCl (Dilaudid) Confirm Administered Dose 0.5 mg .ROUTE .STK-MED ONE Stop: 06/17/19 14:23 Lactated Ringer's (Ringers, Lactated) 1,000 mls @ 125 mls/hr IV ASDIRECTED [facility] Stop: 06/17/19 23:00 Last Admin: 06/17/19 10:05 Dose: 125 mls/hr Lidocaine HCl (Xylocaine-Mpf 1%) Confirm Administered Dose 4 mls @ as directed .ROUTE .[facility] ONE Stop: 06/17/19 11:26 Lactated Ringer's (Ringers, Lactated) Confirm Administered Dose 1,000 mls @ as directed .ROUTE .[facility] ONE Stop: 06/17/19 12:39 Lactated Ringer's (Ringers, Lactated) 1,000 mls @ 100 mls/hr IV [facility] Last Admin: 06/18/19 04:05 Dose: 100 mls/hr Dextrose/Sodium Chloride (Dextrose 5%-1/2 Ns) 1,000 mls @ 50 mls/hr IV [facility] Last Admin: 06/18/19 16:54 Dose: 50 mls/hr Lidocaine/Sodium Bicarbonate (Buffered Lidocaine 1% In Ns 8.4%) 0.25 ml IDERM ONETIME PRN PRN Reason: Prior to IV Start Stop: 06/17/19 23:00 Last Admin: 06/17/19 10:05 Dose: 0.25 ml Metoprolol Tartrate (Lopressor) Confirm Administered Dose 5 mg .ROUTE .STK-MED ONE Stop: 06/17/19 12:55 Midazolam HCl (Versed 1 Mg/Ml) Confirm Administered Dose 2 mg .ROUTE .STK-MED ONE Stop: 06/17/19 11:24 Morphine Sulfate (Morphine) 1 mg IVPUSH Q4H PRN PRN Reason: Pain (severe 7-10) Last Admin: 06/18/19 04:04 Dose: 1 mg Ondansetron HCl (Zofran) Confirm Administered Dose 4 mg .ROUTE .STK-MED ONE Stop: 06/17/19 11:26 Ondansetron HCl (Zofran) 4 mg IVPUSH ONETIME PRN PRN Reason: Nausea/Vomiting Stop: 06/17/19 17:00 Ondansetron HCl (Zofran) Confirm Administered Dose 4 mg .ROUTE .STK-MED ONE Stop: 06/17/19 15:13 Oxycodone HCl (Oxycodone) 5 mg PO Q4H PRN PRN Reason: Pain (moderate 4-6) Rocuronium Benoit (Zemuron) Confirm Administered Dose 50 mg .ROUTE .STK-MED ONE Stop: 06/17/19 11:24 Rocuronium Benoit (Zemuron) 100 mg .ROUTE .STK-MED ONE Stop: 06/17/19 13:12 Sodium Chloride (Saline Flush) 10 ml FLUSH ASDIRECTED PRN PRN Reason: Keep Vein Open Stop: 06/17/19 23:00 Sugammadex Sodium (Bridion) Confirm Administered Dose 500 mg .ROUTE .STK-MED ONE Stop: 06/17/19 15:36 Last Admin: 06/17/19 15:45 Dose: 200 mg
[2019-06-20] MEDS: Pantoprazole 40 MG Tab.CR PO SCH (10:22)
[2019-06-20] MEDS: Polyethylene Glycol 3350 Powder 17 GM Packet PO SCH (10:22)
== END 2019-06-20 13:05 | disposition home or self-care (01) | DRG 354 ==
LOC: JD.MS 08:09 → INTOOBSV 08:54 → JD.MS 08:54 → OBSVTOIN 06-19 08:09
PROVIDERS: ADMIT Surgery; ATTEND Surgery
PROC: 0WQF4ZZ Repair Abdominal Wall, Percutaneous Endoscopic Approach (ICD-10-PCS; principal; 2019-06-17)
PROC: 0WUF4JZ Supplement Abdominal Wall with Synthetic Substitute, Percutaneous Endoscopic Approach (ICD-10-PCS; 2019-06-17)
PROC: 0DJ08ZZ Inspection of Upper Intestinal Tract, Via Natural or Artificial Opening Endoscopic (ICD-10-PCS; 2019-06-17)
DX: K44.9 Diaphragmatic hernia without obstruction or gangrene (principal); K43.6 Other and unspecified ventral hernia with obstruction, without gangrene; M17.12 Unilateral primary osteoarthritis, left knee; H61.23 Impacted cerumen, bilateral; K21.9 Gastro-esophageal reflux disease without esophagitis; H26.9 Unspecified cataract; E78.2 Mixed hyperlipidemia; M81.0 Age-related osteoporosis without current pathological fracture; D50.9 Iron deficiency anemia, unspecified; Z96.652 Presence of left artificial knee joint; Z96.641 Presence of right artificial hip joint; H54.7 Unspecified visual loss; E78.00 Pure hypercholesterolemia, unspecified; E66.9 Obesity, unspecified; Z79.899 Other long term (current) drug therapy; Z90.49 Acquired absence of other specified parts of digestive tract; Z87.440 Personal history of urinary (tract) infections; Z98.890 Other specified postprocedural states; Z90.710 Acquired absence of both cervix and uterus; Z85.3 Personal history of malignant neoplasm of breast; Z87.01 Personal history of pneumonia (recurrent); Z86.010 Personal history of colon polyps; Z98.49 Cataract extraction status, unspecified eye
CPT/HCPCS: 00790; 36415; 51798; 80048; 80053; 85025; 86850; 86900; 86901; 86922; 94762; 97161-GP; A9270-GY; C1781; J0690; J1170; J1644; J2001; J2250; J2270; J2405; J3010; J3490; J7042; J7050; J7120

== ENCOUNTER 2019-09-17 13:39 | Emergency (ER) | payer MEDICARE, BC ==
[2019-09-17] MEDS ORDERED: Acetaminophen 325 MG Tab PO ONE (14:46)
[2019-09-17] MEDS ORDERED: Albuterol/Ipratropium 3.0-0.5 MG/3 ML Neb Soln NEB ONE (14:46)
--- NOTE | 2019-09-17 15:32 | EDM.PDOC ---
ED HPI GENERAL MEDICAL PROBLEM - General Chief Complaint: Respiratory Problem Stated Complaint: HEADACHE AND COUGH Time Seen by Provider: 09/17/19 14:07 Source of Information: Reports: Patient History Limitations: Reports: No Limitations - History of Present Illness INITIAL COMMENTS - FREE TEXT/NARRATIVE: Patient is an 84-year-old female who presents with complaints of cough and frontal headache that started yesterday. Patient states that yesterday morning she awoke with a headache. She took Tylenol and the headache went away. This morning she awoke with a similar headache. Patient states that she took Tylenol and Robitussin around 9:00 this morning with no improvement. She describes the cough is dry and nonproductive. She denies any nasal congestion. States that she has felt warm, but denies any known fever or chills. She did not have an influenza vaccination this year. Patient has a history of pneumonia with her last instance being in April of this year. She states that she does not frequently get headaches. Denies any dizziness, vision changes, nausea, vomiting, or diarrhea. Headache Pain Score (Numeric/FACES): 9 - Related Data Allergies Allergy/AdvReac Type Severity Reaction Status Date / Time No Known Allergies Allergy Verified 09/17/19 14:05 Home Meds: Home Meds Omeprazole 20 mg PO DAILY #14 cap.cr 12/02/16 [Rx] Calcium Carb, Citrate/Vit D3 [Citracal + D ER] 2 tab PO DAILY 10/16/18 [History] Cholecalciferol (Vitamin D3) [Vitamin D3] 1,000 unit PO DAILY 10/16/18 [History] Denosumab [Prolia] 60 mg SQ ASDIRECTED 06/16/19 [History] Ferrous Sulfate [Iron] 1 tab PO DAILY 06/17/19 [History] Ondansetron [Zofran ODT] 4 mg PO Q6HR PRN #20 tab.dis 06/20/19 [Rx] Promethazine [Phenadoz] 12.5 mg RECTAL Q8HR PRN #5 supp 06/20/19 [Rx] oxyCODONE 5 mg PO Q4HR PRN #20 tab 06/20/19 [Rx] Past Medical History HEENT History: Reports: Impaired Vision Other HEENT History: excessive cerumen, glasses, dentures Cardiovascular History: Reports: Heart Murmur, High Cholesterol, Other (See Below) Other Cardiovascular History: carotid stenosis Respiratory History: Reports: Pneumonia, Recurrent, Other (See Below) Other Respiratory History: shortness of breath, wheezing with ambulation Gastrointestinal History: Reports: Colon Polyp, Diverticulosis, GI Bleed, Hiatal Hernia Other Gastrointestinal History: abdominal pain, tubular adenoma, rectal bleeding Genitourinary History: Reports: Pyelonephritis, UTI, Recurrent Other Genitourinary History: UTI 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: Musculoskeletal History: Reports: Arthritis, Osteoarthritis, Osteoporosis, Other (See Below) Other Musculoskeletal History: L knee pain, L knee OA, mild scoliosis Neurological History: Reports: Other (See Below) Other Neuro History: dizziness Psychiatric History: Reports: None Endocrine/Metabolic History: Reports: Obesity/BMI 30+ Hematologic History: Reports: Anemia Immunologic History: Reports: None Oncologic (Cancer) History: Reports: None Dermatologic History: Reports: None - Infectious Disease History Infectious Disease History: Reports: Other (See Below) Other Infectious Disease History: pt reports that she doesnt remember if she has any of these - Past Surgical History Head Surgeries/Procedures: Reports: None HEENT Surgical History: Reports: Cataract Surgery Cardiovascular Surgical History: Reports: None Respiratory Surgical History: Reports: None GI Surgical History: Reports: Colonoscopy, Other (See Below) Other GI Surgeries/Procedures: abdominal surgery. 06/17/19 hiatal herina repair Female Surgical History: Reports: None, Hysterectomy Endocrine Surgical History: Reports: None Neurological Surgical History: Reports: None Musculoskeletal Surgical History: Reports: Hip Replacement, Knee Replacement Other Musculoskeletal Surgeries/Procedures:: Rt hip replacement Oncologic Surgical History: Reports: None Dermatological Surgical History: Reports: None Social & Family History - Family History Family Medical History: Noncontributory HEENT: Reports: None Cardiac: Reports: CAD Endocrine/Metabolic: Reports: Diabetes, type II - Tobacco Use Smoking Status *Q: Never Smoker - Caffeine Use Caffeine Use: Reports: Coffee Other Caffeine Use: 2 cups of coffee per day ED ROS GENERAL - Review of Systems Review Of Systems: Comprehensive ROS is negative, except as noted in HPI. ED EXAM, GENERAL - Physical Exam Exam: See Below Exam Limited By: No Limitations General Appearance: Alert, WD/WN, No Apparent Distress Ears: Normal External Exam, Normal Canal, Hearing Grossly Normal, Normal TMs Throat/Mouth: Normal Inspection, Normal Lips, Normal Teeth, Normal Gums, Normal Oropharynx, Normal Voice, No Airway Compromise Head: Atraumatic, Normocephalic Neck: Normal Inspection, Supple, Non-Tender, Full Range of Motion Respiratory/Chest: No Respiratory Distress, No Accessory Muscle Use, Chest Non- Tender, Wheezing (Faint expiratory throughout) Cardiovascular: Normal Peripheral Pulses, Regular Rate, Rhythm, No Gallop, No JVD, No Rub, Systolic Murmur, Other (Trace bilateral ankle edema) GI/Abdominal: Normal Bowel Sounds, Soft, Non-Tender, No Organomegaly, No Distention, No Abnormal Bruit, No Mass Neurological: Alert, Oriented, CN II-XII Intact, Normal Cognition, Normal Gait, Normal Reflexes, No Motor/Sensory Deficits Psychiatric: Normal Affect, Normal Mood Skin Exam: Warm, Dry, Intact, Normal Color, No Rash Course - Vital Signs Last Recorded V/S: Last Vital Signs Temp 99.4 F 09/17/19 14:02 Pulse 96 09/17/19 14:02 Resp 18 09/17/19 14:02 BP 164/94 H 09/17/19 14:02 Pulse Ox 96 09/17/19 14:46 - Orders/Labs/Meds Orders: Active Orders 24 hr Category Date Time Status RT Aerosol Therapy [RC] ASDIRECTED Care 09/17/19 14:46 Active Labs: Laboratory Tests 09/17/19 09/17/19 Range/Units 15:03 15:03 WBC 6.57 (3.98-10.04) K/mm3 RBC 4.69 (3.98-5.22) M/mm3 Hgb 13.8 D (11.2-15.7) gm/dl Hct 43.1 (34.1-44.9) % MCV 91.9 D (79.4-94.8) fl MCH 29.4 (25.6-32.2) pg MCHC 32.0 L (32.2-35.5) g/dl RDW Std Deviation 48.8 H (36.4-46.3) fL Plt Count 251 (182-369) K/mm3 MPV 10.3 (9.4-12.3) fl Neut % (Auto) 72.0 H (34.0-71.1) % Lymph % (Auto) 16.0 L (19.3-51.7) % [place] % (Auto) 10.5 (4.7-12.5) % Eos % (Auto) 0.8 (0.7-5.8) Baso % (Auto) 0.5 (0.1-1.2) % Neut # (Auto) 4.74 (1.56-6.13) K/mm3 Lymph # (Auto) 1.05 L (1.18-3.74) K/mm3 [place] # (Auto) 0.69 H (0.24-0.36) K/mm3 Eos # (Auto) 0.05 (0.04-0.36) K/mm3 Baso # (Auto) 0.03 (0.01-0.08) K/mm3 Sodium 140 (136-145) mEq/L Potassium 3.9 (3.5-5.1) mEq/L Chloride 104 (98-107) mEq/L Carbon Dioxide 26 (21-32) mEq/L Anion Gap 13.9 (5-15) BUN 6 L (7-18) mg/dL Creatinine 0.8 (0.55-1.02) mg/dL Est Cr Clr Drug Dosing 41.40 mL/min Estimated GFR (MDRD) > 60 (>60) mL/min BUN/Creatinine Ratio 7.5 L (14-18) Glucose 118 H (83-115) mg/dL Calcium 8.7 (8.5-10.1) mg/dL Total Bilirubin 0.5 (0.2-1.0) mg/dL AST 15 (15-37) U/L ALT 20 (14-59) U/L Alkaline Phosphatase 100 (46-116) U/L Total Protein 6.9 (6.4-8.2) g/dl Albumin 3.3 L (3.4-5.0) g/dl Globulin 3.6 gm/dL Albumin/Globulin Ratio 0.9 L (1-2) Meds: Medications Discontinued Medications Generic Name Dose Route Start Last Admin Trade Name Freq PRN Reason Stop Dose Admin Acetaminophen 975 mg 09/17/19 14:46 09/17/19 15:28 Tylenol PO 09/17/19 14:47 975 mg NOW ONE Administration Albuterol/Ipratropium 3 ml 09/17/19 14:46 09/17/19 15:09 Duoneb 3.0-0.5 Mg/3 Ml NEB 09/17/19 14:47 3 ml ONETIME ONE Administration - Re-Assessments/Exams Free Text/Narrative Re-Assessment/Exam: 09/17/19 16:14 Chest x-ray was negative for any acute infiltrates. Lungs are clear with no parenchymal changes. Influenza screen was negative. Hematology was sleepy normal. Patient verbalized improvement of cough symptoms after the DuoNeb treatment. Lung sounds are improved with no expiratory wheezes present on reexam. Oxygen saturations have been 94 to 97% on room air. Patient states that her headache is "much better "after the Tylenol that was given. It is like that she is suffering from a viral upper respiratory infection. We will discharge her home with an albuterol inhaler. I did discuss with her that on occasions, viral infections can progress into a bacterial pneumonia. Recommended that if she is not improved by early next week that she follow-up with her primary care provider. If she should experience any worsening symptoms , recommend that she return to the emergency department. Departure - Departure Time of Disposition: 16:17 Disposition: Home, Self-Care 01 Condition: Fair Clinical Impression: Viral respiratory infection - Discharge Information *PRESCRIPTION DRUG MONITORING PROGRAM REVIEWED*: No *COPY OF PRESCRIPTION DRUG MONITORING REPORT IN PATIENT LUCIE: No Instructions: Viral Respiratory Infection, [id number] Referrals: Nidia Guevara PA-C [Primary Care Provider] - Forms: ED Department Discharge Additional Instructions: You were seen in the emergency department today for cough and headache that began yesterday. Your work-up included blood work, chest x-ray, and an influenza screen. Your work-up returned normal. There were no signs of a bacterial infection. Your lungs were clear of any pneumonia. Influenza screen was negative. You did receive Tylenol while in the emergency department which you state did help your headache quite a bit. You have been provided with an albuterol inhaler. You may use this, 2 puffs as needed for any shortness of breath or wheezing. Continue to use [id number] Tylenol as needed for any headache or discomfort. As we discussed, if your symptoms do not improve by early next week I would recommend that you follow-up with your primary care provider in the clinic. If you experience any worsening symptoms over the weekend, please do not hesitate to return to the emergency department. Sepsis Event Note - Evaluation Sepsis Screening Result: No Definite Risk - Focused Exam Vital Signs: Vital Signs Temp Pulse Resp BP Pulse Ox Pulse Ox 09/17/19 14:46 96 09/17/19 14:02 99.4 F 96 18 164/94 H 92 L Date Exam was Performed: 09/17/19 Time Exam was Performed: 16:14 - My Orders Last 24 Hours: My Active Orders 09/17/19 14:46 RT Aerosol Therapy [RC] ASDIRECTED - Assessment/Plan Last 24 Hours: My Active Orders 09/17/19 14:46 RT Aerosol Therapy [RC] ASDIRECTED
--- NOTE | 2019-09-17 15:54 | CR ---
Chest: Two views of the chest are obtained. Comparison: Prior chest x-ray of 05/26/19. Small hiatal hernia is noted. Heart size is normal. Tortuous thoracic aorta is seen. Lungs are clear with no acute parenchymal change. Slight degenerative change is noted within the spine. Impression: 1. Findings as noted above. No significant change from previous exam. Diagnostic code #2 Study was dictated in [place] Standard Time
[2019-09-17] MEDS ORDERED: Albuterol 6.7 GM Inhaler INH ONE (16:19)
[2019-09-17 16:49] VITALS: BP 150/84; PULSE 81
== END 2019-09-17 16:29 | disposition home or self-care (01) ==
LOC: JD.ED 13:39
DX: J98.8 Other specified respiratory disorders (principal); B97.89 Other viral agents as the cause of diseases classified elsewhere; E78.00 Pure hypercholesterolemia, unspecified; E66.9 Obesity, unspecified; Z79.899 Other long term (current) drug therapy; Z68.33 Body mass index [BMI] 33.0-33.9, adult
CPT/HCPCS: 36415; 71046; 80053; 85025; 87804; 94640; 99284; A9270; 99283; J7620-GY

== ENCOUNTER 2019-09-18 20:38 | Emergency (ER) | payer MEDICARE, BC ==
[2019-09-18 21:00] VITALS: PULSE 82
[2019-09-18] MEDS ORDERED: cloNIDine 0.1 MG Tab PO ONE (21:13)
--- NOTE | 2019-09-18 22:13 | EDM.PDOC ---
ED HPI GENERAL MEDICAL PROBLEM - General Chief Complaint: Headache Stated Complaint: HEADACHE, PAIN AND COUGH Time Seen by Provider: 09/18/19 20:59 Source of Information: Reports: Patient, Family History Limitations: Reports: No Limitations - History of Present Illness INITIAL COMMENTS - FREE TEXT/NARRATIVE: Is an 84-year-old female. She comes tonight because she is having a headache. She describes the headache is in her face and all over her head is sort of a stabbing knifelike pain that comes and goes. She says today is mostly in the maxillary sinus areas. She was seen here last night for the same complaint was given Tylenol in the ER and it resolved the headache. She did have work-up of chest x-ray and CBC that were normal. She also had a breathing treatment in the ER last night that seemed to help her breathing. She has been using her albuterol inhaler today and stating it is doing okay. She was diagnosed with a viral upper respiratory infection. When she comes tonight she says the Tylenol has not been helping at home she still has the headache but her breathing is fine and every else appears to be fine. She is simply here for the headache. When I talked to the family they seem to be overly concerned about this headache that is resolved oftentimes with Tylenol. Think she might have a sinus infection that is causing this but they are not satisfied with that and they wonder make sure that she has not had a stroke or something. She denies any difficulty in walking or moving her extremities and she actually crawled up into the relatives truck in order to get to the ER this evening. The patient denies any vomiting denies any fever or chills. She is noted to have a more elevated blood pressure tonight of 184/90. We will give her some medicine to bring that down to see if that does not help her headache. Headache Pain Score (Numeric/FACES): 10 - Related Data Allergies Allergy/AdvReac Type Severity Reaction Status Date / Time No Known Allergies Allergy Verified 09/18/19 20:57 Home Meds: Home Meds Omeprazole 20 mg PO DAILY #14 cap.cr 12/02/16 [Rx] Calcium Carb, Citrate/Vit D3 [Citracal + D ER] 2 tab PO DAILY 10/16/18 [History] Cholecalciferol (Vitamin D3) [Vitamin D3] 1,000 unit PO DAILY 10/16/18 [History] Denosumab [Prolia] 60 mg SQ ASDIRECTED 06/16/19 [History] Ferrous Sulfate [Iron] 1 tab PO DAILY 06/17/19 [History] Past Medical History HEENT History: Reports: Impaired Vision Other HEENT History: excessive cerumen, glasses, dentures Cardiovascular History: Reports: Heart Murmur, High Cholesterol, Other (See Below) Other Cardiovascular History: carotid stenosis Respiratory History: Reports: Pneumonia, Recurrent, Other (See Below) Other Respiratory History: shortness of breath, wheezing with ambulation Gastrointestinal History: Reports: Colon Polyp, Diverticulosis, GI Bleed, Hiatal Hernia Other Gastrointestinal History: abdominal pain, tubular adenoma, rectal bleeding Genitourinary History: Reports: Pyelonephritis, UTI, Recurrent Other Genitourinary History: UTI 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: Musculoskeletal History: Reports: Arthritis, Osteoarthritis, Osteoporosis, Other (See Below) Other Musculoskeletal History: L knee pain, L knee OA, mild scoliosis Neurological History: Reports: Other (See Below) Other Neuro History: dizziness Psychiatric History: Reports: None Endocrine/Metabolic History: Reports: Obesity/BMI 30+ Hematologic History: Reports: Anemia Immunologic History: Reports: None Oncologic (Cancer) History: Reports: None Dermatologic History: Reports: None - Infectious Disease History Infectious Disease History: Reports: Other (See Below) Other Infectious Disease History: pt reports that she doesnt remember if she has any of these - Past Surgical History Head Surgeries/Procedures: Reports: None HEENT Surgical History: Reports: Cataract Surgery Cardiovascular Surgical History: Reports: None Respiratory Surgical History: Reports: None GI Surgical History: Reports: Colonoscopy, Other (See Below) Other GI Surgeries/Procedures: abdominal surgery. 06/17/19 hiatal herina repair Female Surgical History: Reports: None, Hysterectomy Endocrine Surgical History: Reports: None Neurological Surgical History: Reports: None Musculoskeletal Surgical History: Reports: Hip Replacement, Knee Replacement Other Musculoskeletal Surgeries/Procedures:: Rt hip replacement Oncologic Surgical History: Reports: None Dermatological Surgical History: Reports: None Social & Family History - Family History Family Medical History: Noncontributory HEENT: Reports: None Cardiac: Reports: CAD Endocrine/Metabolic: Reports: Diabetes, type II - Tobacco Use Smoking Status *Q: Never Smoker - Caffeine Use Caffeine Use: Reports: Coffee Other Caffeine Use: 2 cups of coffee per day ED ROS GENERAL - Review of Systems Review Of Systems: See Below Constitutional: Denies: Fever, Chills HEENT: Reports: Sinus Problem Respiratory: Denies: Shortness of Breath, Wheezing, Cough Cardiovascular: Denies: Chest Pain Endocrine: Reports: No Symptoms GI/Abdominal: Denies: Abdominal Pain, Nausea, Vomiting : Reports: No Symptoms Musculoskeletal: Reports: No Symptoms Skin: Reports: No Symptoms Neurological: Reports: Headache Psychiatric: Reports: No Symptoms Hematologic/Lymphatic: Reports: No Symptoms - Physical Exam Exam: See Below Exam Limited By: No Limitations General Appearance: Alert, WD/WN, No Apparent Distress Eye Exam: Bilateral Eye: Normal Inspection Ears: Normal External Exam, Normal Canal, Normal TMs Nose: Clear Rhinorrhea Throat/Mouth: Normal Inspection, Normal Lips, Normal Voice, No Airway Compromise Head Exam: Normocephalic Neck: Supple Respiratory/Chest: No Respiratory Distress, Lungs Clear, Normal Breath Sounds Cardiovascular: Regular Rate, Rhythm, No Murmur GI/Abdominal: Soft Neuro Exam (Abbreviated): Alert, Oriented, CN II-XII Intact, Other (Complains of a headache in the sinus areas as well as on the top of her head.) Back Exam: Full Range of Motion Extremities: Normal Inspection, Normal Range of Motion Psychiatric: Normal Affect, Normal Mood Skin Exam: Warm, Dry Course - Vital Signs Last Recorded V/S: Last Vital Signs Temp 98.9 F 09/18/19 20:57 Pulse 82 09/18/19 20:57 Resp 18 09/18/19 20:57 BP 158/82 H 09/18/19 21:47 Pulse Ox 94 L 09/18/19 20:57 - Orders/Labs/Meds Orders: Active Orders 24 hr Category Date Time Status Head wo Cont [CT] Stat Exams 09/18/19 21:14 Taken Max Facial Sinus wo Cont [CT] Stat Exams 09/18/19 21:14 Taken Meds: Medications Discontinued Medications Generic Name Dose Route Start Last Admin Trade Name Tanner PRN Reason Stop Dose Admin Clonidine HCl 0.2 mg 09/18/19 21:13 09/18/19 21:47 Catapres PO 09/18/19 21:14 0.1 mg ONETIME ONE Administration - Re-Assessments/Exams Free Text/Narrative Re-Assessment/Exam: 09/18/19 22:35 's the blood pressure came down from 184/90 [id number] she says her headache got much better. The blood pressure came down because of the relaxed state that she is in as well as some clonidine. So I am going to put her on some lisinopril starting at 10 mg in the morning and she is to follow-up with her family doctor regarding her blood pressure. Her blood pressure is causing her headaches and definitely this needs to be treated. I spoke to the family about this as well. Departure - Departure Time of Disposition: 22:36 Disposition: Home, Self-Care 01 Condition: Good Clinical Impression: Elevated blood pressure reading Headache Qualifiers: Headache type: unspecified Headache chronicity pattern: acute headache Intractability: not intractable Qualified Code(s): R51 - Headache - Discharge Information *PRESCRIPTION DRUG MONITORING PROGRAM REVIEWED*: Not Applicable *COPY OF PRESCRIPTION DRUG MONITORING REPORT IN PATIENT LUCIE: Not Applicable Instructions: How to Take Your Blood Pressure Referrals: Nidia Guevara PA-C [Primary Care Provider] - Forms: ED Department Discharge Additional Instructions: Take the lisinopril tablet Friday when you wake up, then take it again Friday when you wake up, check your blood pressure only 3 times on Friday and then Friday to get a good idea what it is running and then call your family doctor because you need to be rechecked and possibly continued or increased the medication for your blood pressure to help with your headaches , return to the ER if needed Sepsis Event Note - Evaluation Sepsis Screening Result: No Definite Risk - Focused Exam Vital Signs: Vital Signs Temp Pulse Resp BP BP Pulse Ox 09/18/19 21:47 158/82 H 09/18/19 20:57 98.9 F 82 18 184/90 H 94 L Date Exam was Performed: 09/18/19 Time Exam was Performed: 22:34 - My Orders Last 24 Hours: My Active Orders 09/18/19 21:14 Head wo Cont [CT] Stat Max Facial Sinus wo Cont [CT] Stat - Assessment/Plan Last 24 Hours: My Active Orders 09/18/19 21:14 Head wo Cont [CT] Stat Max Facial Sinus wo Cont [CT] Stat
[2019-09-18] MEDS ORDERED: Lisinopril 10 MG Tab PO ONE (22:34)
[2019-09-18 22:47] VITALS: BP 164/84
--- NOTE | 2019-09-19 13:51 | CT ---
Head CT Technique: Multiple axial sections through the brain were obtained. Intravenous contrast was not utilized. Comparison: No prior intracranial imaging is available. Findings: Ventricles along with basal cisterns and sulci over the convexities are mildly prominent. Minimal areas of diminished density are noted within the periventricular white matter compatible with minimal small vessel ischemic demyelination change. No other abnormal parenchymal densities are seen. No evidence of intracranial hemorrhage. No midline shift or mass-effect is seen. Bone window settings were reviewed. No acute calvarial abnormality is seen. Visualized paranasal sinuses and mastoid sinuses are clear. Impression: 1. Mild senescent change is noted above. 2. No acute intracranial abnormality is identified on noncontrast head CT exam. Diagnostic code #2 This report was dictated in [place] Standard Time I agree with preliminary report from [facility], finalized on 09/18/19, 11:05 PM Central Time
--- NOTE | 2019-09-19 13:52 | CT ---
CT facial bones Technique: Multiple axial sections through the facial bones were obtained. Intravenous contrast was not utilized. Reconstructed coronal and sagittal images were obtained. Comparison: No facial bone study. Findings: Paranasal sinuses are clear. No mucosal thickening or air-fluid levels are seen. Minimal nasal septal deviation is seen. Mild degenerative change is noted within the cervical spine. No acute fracture or other abnormality is appreciated. Impression: 1. Degenerative change partially visualized within the cervical spine. 2. Minimal nasal septal deviation. 3. No acute intracranial abnormality is appreciated. Diagnostic code #2 This report was dictated in [place] Standard Time I agree with preliminary report from [facility], finalized on 09/18/19, 11:08 PM Central Time
== END 2019-09-18 22:49 | disposition home or self-care (01) ==
LOC: JD.ED 20:38
DX: R51 Headache (principal); R03.0 Elevated blood-pressure reading, without diagnosis of hypertension; E78.00 Pure hypercholesterolemia, unspecified; M19.90 Unspecified osteoarthritis, unspecified site; E66.9 Obesity, unspecified; Z68.32 Body mass index [BMI] 32.0-32.9, adult; Z79.899 Other long term (current) drug therapy
CPT/HCPCS: 70450; 70486; 99284; A9270

== ENCOUNTER 2020-06-06 23:38 | Emergency (ER) | payer MEDICARE, BC ==
[2020-06-06] MEDS ORDERED: Sodium Chloride 0.9% 1,000 ML IV SCH (23:45)
[2020-06-06 23:48] VITALS: BP 116/73; PULSE 100
[2020-06-06] MEDS ORDERED: Sodium Chloride 0.9% 10 ML Syringe FLUSH PRN (23:52)
[2020-06-07] MEDS ORDERED: Ondansetron 4 MG/2 ML SDV IVPUSH ONE (00:03)
--- NOTE | 2020-06-07 01:50 | EDM.PDOC ---
ED HPI GENERAL MEDICAL PROBLEM - General Chief Complaint: Gastrointestinal Problem Stated Complaint: [facility] Time Seen by Provider: 06/06/20 23:49 Source of Information: Reports: Patient, RN Notes Reviewed - History of Present Illness INITIAL COMMENTS - FREE TEXT/NARRATIVE: 85 yr old female has felt "more weak and dizzy than usual for the past 3 to 4 days" Was walking, going to bed, became lighteaded, dizzy, "gently fell to floor". No injury but was unable to get up on her own. She has had some diarrhea. No current chest or abd pain. Has not been coughing or short of breath. Not aware of fever or chills. She did go through drive through testing for covid earlier today. Hx Htn, mild renal insufficiency. - Related Data Allergies Allergy/AdvReac Type Severity Reaction Status Date / Time No Known Allergies Allergy Verified 06/06/20 23:48 Home Meds: Home Meds Omeprazole 20 mg PO DAILY #14 cap.cr 12/02/16 [Rx] Calcium Carb, Citrate/Vit D3 [Citracal + D ER] 2 tab PO DAILY 10/16/18 [History] Cholecalciferol (Vitamin D3) [Vitamin D3] 1,000 unit PO DAILY 10/16/18 [History] Denosumab [Prolia] 60 mg SQ ASDIRECTED 06/16/19 [History] Ferrous Sulfate [Iron] 1 tab PO DAILY 06/17/19 [History] Past Medical History HEENT History: Reports: Impaired Vision Other HEENT History: excessive cerumen, glasses, dentures Cardiovascular History: Reports: Heart Murmur, High Cholesterol, Other (See Below) Other Cardiovascular History: carotid stenosis Respiratory History: Reports: Pneumonia, Recurrent, Other (See Below) Other Respiratory History: shortness of breath, wheezing with ambulation Gastrointestinal History: Reports: Colon Polyp, Diverticulosis, GI Bleed, Hiatal Hernia Other Gastrointestinal History: abdominal pain, tubular adenoma, rectal bleeding Genitourinary History: Reports: Pyelonephritis, UTI, Recurrent Other Genitourinary History: UTI COMB WINDER History: Reports: Musculoskeletal History: Reports: Arthritis, Osteoarthritis, Osteoporosis, Other (See Below) Other Musculoskeletal History: L knee pain, L knee OA, mild scoliosis Neurological History: Reports: Other (See Below) Other Neuro History: dizziness Psychiatric History: Reports: None Endocrine/Metabolic History: Reports: Obesity/BMI 30+ Hematologic History: Reports: Anemia Immunologic History: Reports: None Oncologic (Cancer) History: Reports: None Dermatologic History: Reports: None - Infectious Disease History Infectious Disease History: Reports: Other (See Below) Other Infectious Disease History: pt reports that she doesnt remember if she has any of these - Past Surgical History HEENT Surgical History: Reports: Cataract Surgery Cardiovascular Surgical History: Reports: None Respiratory Surgical History: Reports: None GI Surgical History: Reports: Colonoscopy, Other (See Below) Other GI Surgeries/Procedures: abdominal surgery. 06/17/19 hiatal herina repair Female Surgical History: Reports: None, Hysterectomy Endocrine Surgical History: Reports: None Neurological Surgical History: Reports: None Musculoskeletal Surgical History: Reports: Hip Replacement, Knee Replacement Other Musculoskeletal Surgeries/Procedures:: Rt hip replacement Oncologic Surgical History: Reports: None Dermatological Surgical History: Reports: None Social & Family History - Family History Family Medical History: No Pertinent Family History HEENT: Reports: None Cardiac: Reports: CAD Endocrine/Metabolic: Reports: Diabetes, type II - Tobacco Use Tobacco Use Status *Q: Never Tobacco User - Caffeine Use Caffeine Use: Reports: Coffee Other Caffeine Use: 2 cups of coffee per day - Recreational Drug Use Recreational Drug Use: No ED ROS GENERAL - Review of Systems Review Of Systems: See Below Constitutional: Denies: Fever, Chills HEENT: Denies: Sinus Problem, Throat Pain Respiratory: Denies: Shortness of Breath, Cough Cardiovascular: Denies: Chest Pain GI/Abdominal: Reports: Diarrhea. Denies: Abdominal Pain, Nausea, Vomiting Musculoskeletal: Reports: No Symptoms Skin: Reports: No Symptoms Neurological: Reports: Dizziness, Weakness (generalized). Denies: Headache, Numbness, Tingling, Trouble Speaking ED EXAM, GENERAL - Physical Exam Exam: See Below General Appearance: Alert, No Apparent Distress Eye Exam: Bilateral Eye: PERRL Head: Atraumatic. No: Facial Swelling Neck: Supple Respiratory/Chest: No Respiratory Distress, Lungs Clear, Normal Breath Sounds. No: Rales, Rhonchi, Wheezing Cardiovascular: Regular Rate, Rhythm GI/Abdominal: Soft, Non-Tender. No: Guarding Back Exam: No: CVA Tenderness (L), CVA Tenderness (R) Extremities: Normal Inspection, Normal Range of Motion, Non-Tender. No: Pedal Edema, Leg Pain, Increased Warmth, Redness Neurological: Alert, Oriented, No Motor/Sensory Deficits Skin Exam: Warm, Dry, Normal Color, No Rash Course - Vital Signs Last Recorded V/S: Last Vital Signs Temp 99.1 F 06/06/20 23:43 Pulse 100 06/06/20 23:43 Resp 26 H 06/06/20 23:43 BP 116/73 06/06/20 23:43 Pulse Ox 92 L 06/06/20 23:43 - Orders/Labs/Meds Orders: Active Orders 24 hr Category Date Time Status Peripheral IV Care [RC] . DIRECTED Care 06/06/20 23:52 Active Ang Chest [CT] Stat Exams 06/07/20 00:53 Taken Chest 1V Frontal [CR] Stat Exams 06/06/20 23:50 Taken Sodium Chloride 0.9% [Normal Saline] 1,000 ml Med 06/06/20 23:45 Active IV ONETIME Sodium Chloride 0.9% [Saline Flush] Med 06/06/20 23:52 Active 10 ml FLUSH ASDIRECTED PRN Peripheral IV Insertion Adult [OM.PC] Stat Oth 06/06/20 23:52 Ordered Medication Orders Sodium Chloride (Normal Saline) 1,000 mls @ 999 mls/hr IV ONETIME TWYLA Last Admin: 06/07/20 00:15 Dose: 999 mls/hr Documented by: APARNA Sodium Chloride (Saline Flush) 10 ml FLUSH ASDIRECTED PRN PRN Reason: Keep Vein Open Last Admin: 06/07/20 00:16 Dose: 10 ml Documented by: APARNA Labs: Laboratory Tests 06/06/20 06/06/20 06/06/20 Range/Units 23:50 23:50 23:50 WBC 6.58 (3.98-10.04) K/mm3 RBC 4.81 (3.98-5.22) M/mm3 Hgb 14.5 (11.2-15.7) gm/dl Hct 42.9 (34.1-44.9) % MCV 89.2 D (79.4-94.8) fl MCH 30.1 (25.6-32.2) pg MCHC 33.8 (32.2-35.5) g/dl RDW Std Deviation 46.5 H (36.4-46.3) fL Plt Count 183 D (182-369) K/mm3 MPV 10.6 (9.4-12.3) fl Neut % (Auto) 86.7 H (34.0-71.1) % Lymph % (Auto) 7.6 L (19.3-51.7) % [place] % (Auto) 5.5 (4.7-12.5) % Eos % (Auto) 0 L (0.7-5.8) Baso % (Auto) 0.2 (0.1-1.2) % Neut # (Auto) 5.71 (1.56-6.13) K/mm3 Lymph # (Auto) 0.50 L (1.18-3.74) K/mm3 [place] # (Auto) 0.36 (0.24-0.36) K/mm3 Eos # (Auto) 0.00 L (0.04-0.36) K/mm3 Baso # (Auto) 0.01 (0.01-0.08) K/mm3 Manual Slide Review Abnormal smear D-Dimer, Quantitative 2.27 H (0.19-0.50) mg/L Sodium 135 L (136-145) mEq/L Potassium 3.7 (3.5-5.1) mEq/L Chloride 98 (98-107) mEq/L Carbon Dioxide 24 (21-32) mEq/L Anion Gap 16.7 H (5-15) BUN 18 (7-18) mg/dL Creatinine 1.2 H (0.55-1.02) mg/dL Est Cr Clr Drug Dosing TNP Estimated GFR (MDRD) 43 (>60) mL/min BUN/Creatinine Ratio 15.0 (14-18) Glucose 182 H (83-115) mg/dL Calcium 8.7 (8.5-10.1) mg/dL Total Bilirubin 0.5 (0.2-1.0) mg/dL AST 29 (15-37) U/L ALT 23 (14-59) U/L Alkaline Phosphatase 126 H (46-116) U/L C-Reactive Protein 4.3 H* (<1.0) mg/dL Total Protein 7.1 (6.4-8.2) g/dl Albumin 3.3 L (3.4-5.0) g/dl Globulin 3.8 gm/dL Albumin/Globulin Ratio 0.9 L (1-2) SARS-CoV-2 RNA (PETER) (NEGATIVE) 06/07/20 Range/Units 02:20 WBC (3.98-10.04) K/mm3 RBC (3.98-5.22) M/mm3 Hgb (11.2-15.7) gm/dl Hct (34.1-44.9) % MCV (79.4-94.8) fl MCH (25.6-32.2) pg MCHC (32.2-35.5) g/dl RDW Std Deviation (36.4-46.3) fL Plt Count (182-369) K/mm3 MPV (9.4-12.3) fl Neut % (Auto) (34.0-71.1) % Lymph % (Auto) (19.3-51.7) % [place] % (Auto) (4.7-12.5) % Eos % (Auto) (0.7-5.8) Baso % (Auto) (0.1-1.2) % Neut # (Auto) (1.56-6.13) K/mm3 Lymph # (Auto) (1.18-3.74) K/mm3 [place] # (Auto) (0.24-0.36) K/mm3 Eos # (Auto) (0.04-0.36) K/mm3 Baso # (Auto) (0.01-0.08) K/mm3 Manual Slide Review D-Dimer, Quantitative (0.19-0.50) mg/L Sodium (136-145) mEq/L Potassium (3.5-5.1) mEq/L Chloride (98-107) mEq/L Carbon Dioxide (21-32) mEq/L Anion Gap (5-15) BUN (7-18) mg/dL Creatinine (0.55-1.02) mg/dL Est Cr Clr Drug Dosing Estimated GFR (MDRD) (>60) mL/min BUN/Creatinine Ratio (14-18) Glucose (83-115) mg/dL Calcium (8.5-10.1) mg/dL Total Bilirubin (0.2-1.0) mg/dL AST (15-37) U/L ALT (14-59) U/L Alkaline Phosphatase (46-116) U/L C-Reactive Protein (<1.0) mg/dL Total Protein (6.4-8.2) g/dl Albumin (3.4-5.0) g/dl Globulin gm/dL Albumin/Globulin Ratio (1-2) SARS-CoV-2 RNA (PETER) Positive H (NEGATIVE) Meds: Medications Generic Name Dose Route Start Last Admin Trade Name Freemily PRN Reason Stop Dose Admin Sodium Chloride 1,000 mls @ 999 mls/hr 06/06/20 23:45 06/07/20 00:15 Normal Saline IV 999 mls/hr ONETIME TWYLA Administration Sodium Chloride 10 ml 06/06/20 23:52 06/07/20 00:16 Saline Flush FLUSH 10 ml ASDIRECTED PRN Administration Keep Vein Open Discontinued Medications Generic Name Dose Route Start Last Admin Trade Name Freq PRN Reason Stop Dose Admin Ondansetron HCl 4 mg 06/07/20 00:03 06/07/20 00:15 Zofran IVPUSH 06/07/20 00:04 4 mg ONETIME ONE Administration - Re-Assessments/Exams Free Text/Narrative Re-Assessment/Exam: 06/07/20 03:02 D Dimer came back elevated at 2.7. CRP 4.4. CXR nl. CT angio ordered which did not show PE but did showsmall areas of infiltrate R upper lobe as well in both lower lobes. See Radiology report for details. I have concern for covid considering how much there is the community right now. With consideration of her age and helpfulness to know now have ordered 1 hr covid screen. 06/07/20 04:05. Covid screen has come back positive. She is resting comfortably. Will let her rest with us until a more reasonable time to work on discharge plan and get her a ride home. 06/07/20 06:26Pt has been up to the bathroom and did OK ambulating with her walker. O2 sats have continued to run in the 90"s, 96 to 98 % room air when I was with her just a few minutes ago. Will plan to write an order for home health consult. Departure - Departure Time of Disposition: 06:57 Disposition: Home, Self-Care 01 Condition: Fair Clinical Impression: COVID-19 virus infection - Discharge Information Referrals: PCP,None [Primary Care Provider] - Forms: ED Department Discharge Additional Instructions: Your test for covid was positive. You will need to isolate at home for at least the next 12 days. Be sure to wear a mask if family or anyone else comes to check on you. I have ordered a home health consult. Hopefully they will be able to check in on you and help make sure you are doing OK. Use your walker at all times. If you get weak or dizzy standing or walking, sit or lie down immediately so you don't fall down and injure your self. Return to ED for severe breathing difficulty or if you are becoming more weak, dizzy to safely stand, walk or if symptoms otherwise worsening. Sepsis Event Note (ED) - Evaluation Sepsis Screening Result: No Definite Risk - Focused Exam Vital Signs: Vital Signs Temp Pulse Resp BP Pulse Ox 06/06/20 23:43 99.1 F 100 26 H 116/73 92 L - My Orders Last 24 Hours: My Active Orders 06/06/20 23:45 Sodium Chloride 0.9% [Normal Saline] 1,000 ml IV ONETIME 06/06/20 23:50 Chest 1V Frontal [CR] Stat 06/06/20 23:52 Peripheral IV Care [RC] . DIRECTED Sodium Chloride 0.9% [Saline Flush] 10 ml FLUSH ASDIRECTED PRN Peripheral IV Insertion Adult [OM.PC] Stat 06/07/20 00:53 Ang Chest [CT] Stat - Assessment/Plan Last 24 Hours: My Active Orders 06/06/20 23:45 Sodium Chloride 0.9% [Normal Saline] 1,000 ml IV ONETIME 06/06/20 23:50 Chest 1V Frontal [CR] Stat 06/06/20 23:52 Peripheral IV Care [RC] . DIRECTED Sodium Chloride 0.9% [Saline Flush] 10 ml FLUSH ASDIRECTED PRN Peripheral IV Insertion Adult [OM.PC] Stat 06/07/20 00:53 Ang Chest [CT] Stat
--- NOTE | 2020-06-07 08:42 | CR ---
PROCEDURE INFORMATION: Exam: XR Chest, 1 View Exam date and time: 06/07/2020 12:16 AM Age: 85 years old Clinical indication: Fever and other: Weakness TECHNIQUE: Imaging protocol: XR of the chest Views: 1 view. COMPARISON: DX Chest 2V 09/17/2019 2:52 PM FINDINGS: Lungs: Unremarkable. No consolidation. Pleural space: Unremarkable. No pleural effusion. No pneumothorax. Heart/Mediastinum: Unremarkable. No cardiomegaly. Bones/joints: Unremarkable. IMPRESSION: No acute findings. Small hiatal hernia again noted Thank you for allowing us to participate in the care of your patient. Dictated and Authenticated by: Shai Brown MD 06/07/2020 2:08 AM Central Time ([place] & [place]) [place]
--- NOTE | 2020-06-07 08:43 | CT ---
PROCEDURE INFORMATION: Exam: CT Angiography Chest With Contrast Exam date and time: 06/07/2020 1:13 AM Age: 85 years old Clinical indication: Abnormal findings; Abnormal diagnostic tests; Elevated d- dimer; Fever and other: Weak, dizzy TECHNIQUE: Imaging protocol: Computed tomographic angiography of the chest with intravenous contrast. 3D rendering (Not supervised by radiologist): MIP and/or 3D reconstructed images were created by the technologist. Radiation optimization: All CT scans at this facility use at least one of these dose optimization techniques: automated exposure control; mA and/or kV adjustment per patient size (includes targeted exams where dose is matched to clinical indication); or iterative reconstruction. Contrast material: ISOVIEW 370; Contrast volume: 100 ml; Contrast route: INTRAVENOUS (IV); COMPARISON: CR Chest 1V Frontal 06/07/2020 12:16 AM FINDINGS: Pulmonary arteries: No evidence for acute pulmonary emboli. Aorta: Unremarkable. No aortic aneurysm. No aortic dissection. Lungs: Small focal area of infiltrate or atelectasis in the right upper lobe as well as in both lower lobes. Pleural space: Unremarkable. No pneumothorax. No pleural effusion. Heart: Unremarkable. No cardiomegaly. No pericardial effusion. Mediastinal space: Moderate size hiatal hernia. Lymph nodes: Unremarkable. No enlarged lymph nodes. Stomach and bowel: Incidental note is made splenic flexure diverticulosis. Bones/joints: Unremarkable. No acute fracture. Soft tissues: Unremarkable. IMPRESSION: 1. Moderate size cyst hiatal hernia. 2. No evidence for acute pulmonary emboli. 3. Small focal area of infiltrate or atelectasis in the right upper lobe as well as in both lower lobes. Bilateral pneumonia should be considered. Thank you for allowing us to participate in the care of your patient. Dictated and Authenticated by: Shai Brown MD 06/07/2020 2:58 AM Central Time ([place] & [place]) [place]
== END 2020-06-07 07:10 | disposition home or self-care (01) ==
LOC: JD.ED 23:38
DX: U07.1 COVID-19 (principal); R79.89 Other specified abnormal findings of blood chemistry; E66.9 Obesity, unspecified; Z90.710 Acquired absence of both cervix and uterus; Z79.899 Other long term (current) drug therapy
CPT/HCPCS: 36415; 71045; 71275; 80053; 85025; 85379; 86140; 96374; 99284; J2405; J7030; U0002